=== PATIENT | male | born 1955 | race Caucasian/White ===

== ENCOUNTER 2016-08-23 21:24 | Inpatient (IN) | payer OTHER ==
[~2016-08-23] VITALS: Ht 172.7 cm; Wt 80.4 kg
[~2016-08-23 21:24] MED LIST: ATEN-175 PO; CHOL20009 PO; COEN100C7 PO; EPP3/2 INJ; FLUT0.15 NAE; HYDR25TA4 PO; LISI20TA3 PO; OMEG10007 PO; POMEGRANATE PO; SIMV80TA2 PO; TURMERIC PO
[2016-08-23] MEDS ORDERED: ASPIRIN 324 MG CHEW PO STA (22:01)
[2016-08-23 22:07] LABS: BASO % 0.3 %; BASO ABS # 0.03 K/uL (0-0.2); COMPLETE YES; HEMATOCRIT 40.1 % (42-52); IG% 0.2 %; MEAN CELL VOLUME 94.1 fL (80-100); MEAN CORPUSCULAR HEMOGLOBIN 33.1 pg (25-34); MEAN CORPUSCULAR HGB CONC 35.2 g/dl (32-36); MONO % 6.9 %; NEUT % 63.6 %; PLATELET COUNT 238 K/uL (130-400); RED BLOOD COUNT 4.26 M/uL (4.7-6.1); WHITE BLOOD COUNT 9.22 K/uL (4.8-10.8)
[2016-08-23] MEDS ORDERED: SODIUM CHLORIDE 0.9% 500ML 500 ML IV STA (22:09)
--- NOTE | 2016-08-23 22:15 | DIAGNOSTIC IMAGING REPORT ---
CHEST ONE VIEW PORTABLE CLINICAL HISTORY: Atypical chest pain COMPARISON STUDY: 07/30/2013 FINDINGS: The heart is at the upper limits of normal in size. There is no failure. There is no focal pulmonary consolidation. There are no pleural effusions. There is minimal left basilar atelectasis/scarring.[ IMPRESSION: No active disease in the chest. Electronically signed by: Gino Aguirre M.D. 08/23/2016 10:13 PM Dictated Date/Time: 08/23/2016 10:13 PM
[2016-08-23 22:23] LABS: BUN/CREATININE RATIO 16.3 (10-20); CREATININE 0.84 mg/dl (0.60-1.40)
[2016-08-23 22:30] LABS: CKMB/CK RATIO 3.2 (0-3.0)
[2016-08-23] MEDS ORDERED: MULT-506 PO (22:40)
[2016-08-23] MEDS ORDERED: BILB1CAP PO (22:41)
[2016-08-23] MEDS ORDERED: FEXO1TAB49 PO (22:42)
[2016-08-23] MEDS ORDERED: FOLI800T PO (22:43)
[2016-08-23] MEDS ORDERED: ASCO100061 PO (22:45)
[2016-08-23] MEDS ORDERED: METOPROLOL TARTRATE 50 MG TAB PO STA ×2 (22:49→23:07)
[2016-08-23] MEDS ORDERED: TURM500T PO (22:50)
[2016-08-23] MEDS ORDERED: POME250C2 PO (22:52)
[2016-08-23] MEDS ORDERED: NITROGLYCERIN OINT 2% 1GM PACKET ONE (23:07)
[2016-08-23] MEDS ORDERED: ACETAMINOPHEN 325 MG TAB PO PRN (23:15)
[2016-08-23] MEDS ORDERED: NITROGLYCERIN OINT 2% 1GM PACKET EXT SCH (23:15)
[2016-08-23] MEDS ORDERED: NITROGLYCERIN 0.4 MG SL PER TAB CHARGE SL PRN (23:15)
[2016-08-23] MEDS ORDERED: ZOLPIDEM TARTRATE 5 MG TAB PO PRN (23:15)
[2016-08-23 23:35] VITALS: BP 169/87; PULSE 61; TEMP 36.7; O2SAT 93; Ht 172.7 cm; Wt 80.4 kg
[2016-08-24] VITALS (12 sets, daily range): BP systolic 108–128; BP diastolic 64–78; PULSE 62–90; TEMP 36.3–36.9; O2SAT 95–99
[2016-08-24] MEDS ORDERED: ONDANSETRON INJ 2 MG/ML 2 ML VIAL IV PRN ×2 (01:30→12:45)
--- NOTE | 2016-08-24 01:43 | EMERGENCY ROOM VISIT NOTE ---
History Report prepared by Jose: Leanne Cedeño Under the Supervision of: Nikki PantojaO. First contact with patient: 21:48 Chief Complaint: CHEST PAIN Stated Complaint: CHEST PAIN Nursing Triage Summary: patient with chest pain earlier this evening. states it did not last long. took some antacids and it eventually resolved. no diaphoresis, nausea or radiation of the pain. states it happened before once but it also resolved on it's own. no pain at this time History of Present Illness The patient is a 61 year old male who presents to the Emergency Room with complaints of an episode of chest pain occurring 3 hours [employer]. The patient had an episode of chest pain this evening that lasted between 15-30 minutes. It started after he walked upstairs to go to the bathroom and have a bowel movement. He states that his pain went away after he relaxed. His pain was located in the center of his chest. The patient did not take any medication for his pain. He denies his pain radiating into his jaw or his back. He denies any current chest pain or shortness of breath. He does not have any history of a previous HI. He does not take aspirin. Source of History: patient, family (daughter) Onset: 3 hours [employer] Position: chest Symptom Intensity: moderate Timing: other (episode) Modifying Factors (Worsening): exertion (walking upstairs), defecation Associated Symptoms: No SOB, No back pain Review of Systems See HPI for pertinent positives & negatives. A total of 10 systems reviewed and were otherwise negative. Past Medical & Surgical Medical Problems: (1) Acute coronary syndrome (2) Cervicalgia (3) Hyperlipidemia (4) Hypertension (5) Subarachnoid hemorrhage Family History FH: heart disease Social History Smoking Status: Current Every Day Smoker Housing Status: lives with family Occupation Status: employed Current/Historical Medications Scheduled Ascorbic Acid (Ascorbic Acid), 1,000 MG PO DAILY Atenolol (Tenormin), 100 MG PO QPM Bilberry (Vaccinium Myrtillus) (Bilberry), Unknown Dose PO DAILY Cholecalciferol (Vitamin D), 2,000 UNITS PO QAM Coenzyme Q10 (Ubidecarenone) (Coq10), 100 MG PO QAM Fish Oil ([place]-3), 1,200 MG PO QAM Folic Acid (Folic Acid), 800 MCG PO DAILY Hydrochlorothiazide (Hctz), 25 MG PO QAM Lisinopril (Prinivil), 20 MG PO BID Multivitamin (Multivitamin), 1 TAB PO DAILY Pomegranate (Punica Granatum) (Pomegranate), 250 MG PO DAILY Simvastatin (Zocor), 80 MG PO QPM Turmeric (Curcuma Longa) (Turmeric), 500 MG PO DAILY Scheduled PRN Epinephrine (Epipen 2-Armin), 1 DOSE INJ DIRECTED PRN for ALLERGIC REACTION Fexofenadine Hcl (Hellen Allergy), 180 MG PO DAILY PRN for ALLERGIC REACTION Allergies Coded Allergies: No Known Allergies (Verified , 12/29/15) Physical Exam Vital Signs Date Time Temp Pulse Resp B/P Pulse Ox O2 Delivery O2 Flow Rate FiO2 08/23/16 23:00 95 20 154/92 99 Room Air 08/23/16 21:55 96 08/23/16 21:36 37.1 81 20 135/84 97 Room Air Physical Exam GENERAL: alert, sitting up in bed, ill appearing, disheveled, well nourished, no distress, non-toxic EYE EXAM: normal conjunctiva OROPHARYNX: no exudate, no erythema, lips, buccal mucosa, and tongue normal and mucous membranes are moist NECK: supple, no nuchal rigidity, no adenopathy, non-tender LUNGS: Clear to auscultation. Normal chest wall mechanics HEART: no murmurs, S1 normal and S2 normal ABDOMEN: abdomen soft, non-tender, normo-active bowel sounds, no masses, no rebound or guarding. BACK: Back is symmetrical on inspection and there is no deformity, no midline tenderness, no CVA tenderness. SKIN: no rashes and no bruising UPPER EXTREMITIES: upper extremities are grossly normal. Radial pulses equal bilaterally. LOWER EXTREMITIES: No pitting edema. Calves equal bilaterally. NEURO EXAM: Normal sensorium, cranial nerves II-XII grossly intact, normal speech, no gross weakness of arms, no gross weakness of legs. Medical Decision & Procedures ER Provider Diagnostic Interpretation: A repeat ECG reveals a sinus rhythm at 84 normal axis, ST depressions have improved. Radiology results as stated below per my review and radiologist interpretation: CHEST ONE VIEW PORTABLE CLINICAL HISTORY: Atypical chest pain COMPARISON STUDY: 07/30/2013 FINDINGS: The heart is at the upper limits of normal in size. There is no failure. There is no focal pulmonary consolidation. There are no pleural effusions. There is minimal left basilar atelectasis/scarring.[ IMPRESSION: No active disease in the chest. Electronically signed by: Gino Aguirre M.D. 08/23/2016 10:13 PM Dictated Date/Time: 08/23/2016 10:13 PM Laboratory Results 08/23/16 21:50 Red Blood Count 4.26, Mean Corpuscular Volume 94.1, Mean Corpuscular Hemoglobin 33.1, Mean Corpuscular Hemoglobin Concent 35.2, Mean Platelet Volume 9.0, Neutrophils (%) (Auto) 63.6, Lymphocytes (%) (Auto) 26.0, Monocytes (%) (Auto) 6.9, Eosinophils (%) (Auto) 3.0, Basophils (%) (Auto) 0.3, Neutrophils # (Auto) 5.85, Lymphocytes # (Auto) 2.40, Monocytes # (Auto) 0.64, Eosinophils # (Auto) 0.28, Basophils # (Auto) 0.03 08/23/16 21:50 Test 08/23/16 21:50 08/23/16 22:01 White Blood Count 9.22 K/uL (4.8-10.8) Red Blood Count 4.26 M/uL (4.7-6.1) Hemoglobin 14.1 g/dL (14.0-18.0) Hematocrit 40.1 % (42-52) Mean Corpuscular Volume 94.1 fL (80-100) Mean Corpuscular Hemoglobin 33.1 pg (25-34) Mean Corpuscular Hemoglobin Concent 35.2 g/dl (32-36) Platelet Count 238 K/uL (130-400) Mean Platelet Volume 9.0 fL (7.4-10.4) Neutrophils (%) (Auto) 63.6 % Lymphocytes (%) (Auto) 26.0 % Monocytes (%) (Auto) 6.9 % Eosinophils (%) (Auto) 3.0 % Basophils (%) (Auto) 0.3 % Neutrophils # (Auto) 5.85 K/uL (1.4-6.5) Lymphocytes # (Auto) 2.40 K/uL (1.2-3.4) Monocytes # (Auto) 0.64 K/uL (0.11-0.59) Eosinophils # (Auto) 0.28 K/uL (0-0.5) Basophils # (Auto) 0.03 K/uL (0-0.2) RDW Standard Deviation 43.4 fL (36.4-46.3) RDW Coefficient of Variation 12.6 % (11.5-14.5) Immature Granulocyte % (Auto) 0.2 % Immature Granulocyte # (Auto) 0.02 K/uL (0.00-0.02) Anion Gap 10.0 mmol/L (3-11) Est Creatinine Clear Calc Drug Dose 95.0 ml/min Estimated GFR () 108.0 Estimated GFR (Non- 93.2 BUN/Creatinine Ratio 16.3 (10-20) Calcium Level 9.0 mg/dl (8.5-10.1) Bedside Troponin I 0.340 ng/ml (0-0.045) Laboratory results per my review. Medications Administered Medications (Trade) Dose Ordered Sig/Shanae Route Start Time Stop Time Status Last Admin Dose Admin Aspirin 324 mg 324 mg NOW STAT PO 08/23/16 22:01 08/23/16 22:02 DC 08/23/16 22:14 324 MG Sodium Chloride (Nss 500ml) 500 ml @ 999 mls/hr Q31M STAT IV 08/23/16 22:09 08/23/16 22:39 DC 08/23/16 22:15 999 MLS/HR Nitroglycerin (Nitroglycerin 2% Oint) 1 inch STK-MED ONCE .ROUTE 08/23/16 23:07 08/23/16 23:08 DC 08/23/16 23:15 1 INCH Metoprolol Tartrate (Lopressor Tab) 50 mg NOW STAT PO 08/23/16 23:07 08/23/16 23:18 DC 08/23/16 23:18 50 MG ECG Indication: chest pain Rate (beats per minute): 96 Rhythm: sinus rhythm Findings: PVC, ST depression (Anterolateral) Comparison ECG Date: 09/10/08 Change: All findings are new when compared to previous. ED Course ED COURSE: Vital signs were reviewed and showed tachycardic. The patients medical record was reviewed The above diagnostic studies were performed and reviewed. ED treatments and interventions as stated above. 2147: The patient was evaluated in room A3. A complete history and physical examination was performed. 2200: Aspirin 324 mg PO 2208: NSS 500 ml @ 999 mls/hr IV 2216: I reassessed the patient at this time. A repeat ECG was performed. He is still denying any pain or shortness of breath. 2220: I spoke with Dr. Kramer. We discussed the patient's results and treatment plan. The patient will be evaluated by the [facility] for further management. 2235: Upon reevaluation, the patient is doing well. I discussed my findings with the patient and he understands and agrees with the treatment plan. Based on the patients age, coexisting illnesses, exam and lab findings the decision to treat as an inpatient was made. The patient remained stable while under my care. The patient will be evaluated for further management. Medical Decision Differential diagnoses includes but is not limited to acute coronary syndrome, myocardial infarction, pericarditis, pulmonary embolus, aortic dissection, pneumonia, pneumothorax, musculoskeletal, shingles, esophageal. Patient is a 61-year-old male who presents the ER for chest pain which started around 6 PM and lasted for about half hour. It is in the middle of his chest without radiation. He notes it has completely resolved around 6:30 PM. He does have a history of a subarachnoid hemorrhage. On exam he currently has no complaints. His initial EKG shows slight ST depressions in the anterior and lateral leads along with PVCs. This was new in comparison to his previous/old EKG. Patient was given aspirin. He is also given a bolus normal saline. Heart rate trended down to 80s. Again he had no pain at this time. Repeat EKG certain improvement in his ST wave changes which resolved. His troponin was positive. I did not place him on heparin as he was completed chest pain-free and had a previous subarachnoid hemorrhage along with his EKG which has normalized. Patient and daughter were updated at bedside. He is admitted to internal medicine for an NSTEMI. Consults Time Called: 2220 Consulting Physician: Dr. Kramer Returned Call: [address] Kramer. We discussed the patient's results and treatment plan. The patient will be evaluated by the [facility] for further management. Impression Primary Impression: NSTEMI (non-ST elevated myocardial infarction) Scribe Attestation The scribe's documentation has been prepared under my direction and personally reviewed by me in its entirety. I confirm that the note above accurately reflects all work, treatment, procedures, and medical decision making performed by me. Departure Information Dispostion Being Evaluated By Hospitalist Referrals Valentino Montoya D.O.Int.Med. (PCP) Patient Instructions My [facility]
[2016-08-24 02:13] LABS: PARTIAL THROMBOPLASTIN RATIO 1.3; PROTHROMBIN TIME (PATIENT) 10.8 SECONDS (9.0-12.0)
[2016-08-24 02:28] LABS: CKMB/CK RATIO 3.7 (0-3.0)
--- NOTE | 2016-08-24 05:45 | History and Physical ---
History & Physical Date & Time of Service: Aug 24, 2016 at 05:35 Chief Complaint: Acute Coronary Syndrome Primary Care Physician: Valentino Montoya D.O.Int.Med. History of Present Illness Source: patient The patient is a 61-year-old male who presents to the emergency room, at the urging of his 18-year-old daughter who is with him, due to an episode of precordial chest pain that began about 3 hours prior to arrival. The pain began after he started walking up stairs to go to the bathroom to have a bowel movement, with duration of 15-30 minutes. The pain resolved on its own, and did not radiate into his jaw or his back or his arm. He reports having had a similar episode of discomfort 3 months ago, with the main difference today being his daughter urged him to come to emergency department for assessment. He has a brother who of a heart attack, and his mother is alive at age 94 and is status post CABG. He himself was never had an MA, and is not on aspirin Past Medical/Surgical History Medical Problems: (1) Cervicalgia Status: Chronic (2) Hyperlipidemia Status: Chronic (3) Hypertension Status: Chronic (4) Subarachnoid hemorrhage Status: Resolved Family History FH: heart disease Social History Smoking Status: Current Every Day Smoker Smokeless Tobacco Use: No Alcohol Use: none Drug Use: none Housing status: lives with family Occupational Status: employed Immunizations History of Influenza Vaccine: Yes History of Tetanus Vaccine?: Unknown History of Pneumococcal: No History of Hepatitis B Vaccine: No Multi-Drug Resistant Organisms History of MDRO: No Allergies Coded Allergies: No Known Allergies (Verified , 12/29/15) Home Medications Scheduled Ascorbic Acid (Ascorbic Acid), 1,000 MG PO DAILY Atenolol (Tenormin), 100 MG PO QPM Bilberry (Vaccinium Myrtillus) (Bilberry), Unknown Dose PO DAILY Cholecalciferol (Vitamin D), 2,000 UNITS PO QAM Coenzyme Q10 (Ubidecarenone) (Coq10), 100 MG PO QAM Fish Oil ([place]-3), 1,200 MG PO QAM Folic Acid (Folic Acid), 800 MCG PO DAILY Hydrochlorothiazide (Hctz), 25 MG PO QAM Lisinopril (Prinivil), 20 MG PO BID Multivitamin (Multivitamin), 1 TAB PO DAILY Pomegranate (Punica Granatum) (Pomegranate), 250 MG PO DAILY Simvastatin (Zocor), 80 MG PO QPM Turmeric (Curcuma Longa) (Turmeric), 500 MG PO DAILY Scheduled PRN Epinephrine (Epipen 2-Armin), 1 DOSE INJ DIRECTED PRN for ALLERGIC REACTION Fexofenadine Hcl (Hellen Allergy), 180 MG PO DAILY PRN for ALLERGIC REACTION Review of Systems The patient denies cough, lower extremity swelling, vision change, hearing change, sore throat, fevers, chills, sweats, weight change, fatigue, nausea, vomiting, abdominal pain, pelvic pain, blood in urine or stool, dysuria, urinary frequency or urgency, lightheadedness, dizziness, headache, memory loss , rash, abnormal bruising or bleeding, imbalance, focal or generalized weakness , numbness or tingling in arms or legs, arthralgias or myalgias, back or neck pain, night sweats, or allergy symptoms. The review of systems is otherwise negative other than for that already noted above, and at least 10 systems have been reviewed. Physical Exam Vital Signs Date Time Temp Pulse Resp B/P Pulse Ox O2 Delivery O2 Flow Rate FiO2 08/24/16 04:02 36.9 74 18 109/68 97 Room Air 08/24/16 04:00 Room Air 08/23/16 23:35 36.7 61 16 169/87 93 Room Air 08/23/16 23:00 95 20 154/92 99 Room Air 08/23/16 21:55 96 08/23/16 21:36 37.1 81 20 135/84 97 Room Air The patient is awake, well-developed and adequately nourished, alert and oriented 3, normocephalic and atraumatic, lying in bed and in no acute distress. HEENT--PERRL, EOMI, mucous membranes moist, and oropharynx normal. Neck--supple, no JVD or bruits, thyroid normal, trachea midline, no adenopathy. Heart--normal S1 and S2, no extra beats, no murmurs, rubs or gallops. Lungs--clear bilaterally with good air movement, no respiratory distress, no accessory muscle use. Abdomen--normal bowel sounds and soft, nontender and nondistended, no hernias or masses, no organomegaly. Extremities--no cyanosis, clubbing or edema. There are good distal pulses b/l. Dermatologic--normal skin turgor, normal color, warm and dry, no abnormal lymph nodes, no rash. Neurologic--cranial nerves II through XII grossly intact, motor and sensory examination normal. Rheumatologic--normal range of motion, nontender, muscles and joints. Psychiatric--normal affect. Diagnostics Laboratory Results Results Past 24 Hours Test 08/23/16 21:50 08/23/16 22:01 08/24/16 01:50 Range/Units White Blood Count 9.22 4.8-10.8 K/uL Red Blood Count 4.26 4.7-6.1 M/uL Hemoglobin 14.1 14.0-18.0 g/dL Hematocrit 40.1 42-52 % Mean Corpuscular Volume 94.1 80-100 fL Mean Corpuscular Hemoglobin 33.1 25-34 pg Mean Corpuscular Hemoglobin Concent 35.2 32-36 g/dl Platelet Count 238 130-400 K/uL Mean Platelet Volume 9.0 7.4-10.4 fL Neutrophils (%) (Auto) 63.6 % Lymphocytes (%) (Auto) 26.0 % Monocytes (%) (Auto) 6.9 % Eosinophils (%) (Auto) 3.0 % Basophils (%) (Auto) 0.3 % Neutrophils # (Auto) 5.85 1.4-6.5 K/uL Lymphocytes # (Auto) 2.40 1.2-3.4 K/uL Monocytes # (Auto) 0.64 0.11-0.59 K/uL Eosinophils # (Auto) 0.28 0-0.5 K/uL Basophils # (Auto) 0.03 0-0.2 K/uL RDW Standard Deviation 43.4 36.4-46.3 fL RDW Coefficient of Variation 12.6 11.5-14.5 % Immature Granulocyte % (Auto) 0.2 % Immature Granulocyte # (Auto) 0.02 0.00-0.02 K/uL Sodium Level 138 136-145 mmol/L Potassium Level 4.0 3.5-5.1 mmol/L Chloride Level 101 98-107 mmol/L Carbon Dioxide Level 27 21-32 mmol/L Anion Gap 10.0 3-11 mmol/L Blood Urea Nitrogen 14 7-18 mg/dl Creatinine 0.84 0.60-1.40 mg/dl Est Creatinine Clear Calc Drug Dose 95.0 ml/min Estimated GFR () 108.0 Estimated GFR (Non- 93.2 BUN/Creatinine Ratio 16.3 10-20 Random Glucose 91 70-99 mg/dl Calcium Level 9.0 8.5-10.1 mg/dl Total Creatine Kinase 130 115 39-308 U/L Creatine Kinase MB 4.1 4.3 0.5-3.6 ng/ml Creatine Kinase MB Ratio 3.2 3.7 0-3.0 Troponin I 0.513 0.835 0-0.045 ng/ml Bedside Troponin I 0.340 0-0.045 ng/ml Prothrombin Time 10.8 9.0-12.0 SECONDS Prothromb Time International Ratio 1.0 0.9-1.1 Activated Partial Thromboplast Time 33.2 21.0-31.0 SECONDS Partial Thromboplastin Ratio 1.3 Diagnostic Radiology Patient Name: ANNA BEY Unit Number: [id number] Dictated: 08/23/162212 Transcribed: 08/23/162212 ARG Printed Date/Time: [~ rep prt dt]/[~ rep prt tm] [~ rep ct labl] - [~ rep ct ivnm] [facility] [place] [address] Dictated: 08/23/162212 Transcribed: 08/23/162212 ARG Printed Date/Time: [~ rep prt dt]/[~ rep prt tm] [~ rep ct labl] - [~ rep ct ivnm] CLINICAL HISTORY: Atypical chest pain COMPARISON STUDY: 07/30/2013 FINDINGS: The heart is at the upper limits of normal in size. There is no failure. There is no focal pulmonary consolidation. There are no pleural effusions. There is minimal left basilar atelectasis/scarring.[ IMPRESSION: No active disease in the chest. Electronically signed by: Gino Aguirre M.D. 08/23/2016 10:13 PM Dictated Date/Time: 08/23/2016 10:13 PM The status of this report is Signed. Draft = Not yet reviewed or approved by Radiologist. Signed = Reviewed and approved by Radiologist. <AttendingPhy></AttendingPhy> <FamilyPhy>Valentino Montoya D.O.Int.Med.</ FamilyPhy> <PrimaryPhy>Valentino Montoya D.O.Int.Med.</PrimaryPhy> <UnitNumber> [id number]</UnitNumber> <VisitNumber>[id number]</VisitNumber> <PatientName> ANNA BEY</PatientName> <DateOfBirth>1955</DateOfBirth> <Location>[facility]< /Location> <ServiceDate>08/23/16</ServiceDate> <MNE>ESINDI</MNE> <OrderingPhy> Oli Palacio DO</OrderingPhy> <OrderingPhyMNE>f rep ord dr thayer</OrderingPhyMNE > <DictatingPhyMNE>f rep dict dr thayer</DictatingPhyMNE> <CCListMNE>f rep ct mne</ CCListMNE> <AdmittingPhyMNE>f pt admit dr thayer</AdmittingPhyMNE> <AttendingPhyMNE >f pt attend dr thayer</AttendingPhyMNE> <ConsultingPhyMNE>f pt consult dr thayer</ConsultingPhyMNE> <FamilyPhyMNE>f pt fam dr thayer</FamilyPhyMNE> <OtherPhyMNE>f pt other dr thayer</OtherPhyMNE> < PrimaryPhyMNE>f pt prim care dr thayer</PrimaryPhyMNE> <ReferringPhyMNE>f pt referring dr thayer</ReferringPhyMNE> EKG First EKG shows normal sinus rhythm at 84, with ST depressions most pronounced in V4, but also noted in V3, V5, II, III, aVF with accompanying PVCs. Second EKG shows normal sinus rhythm, with resolution of above changes, and no acute ST-T changes Impression Assessment and Plan Acute coronary syndrome, with initial troponin elevated at 0.513, with reversible inferior lateral ischemic changes on EKG, with history of subarachnoid hemorrhage--he will be admitted to the telemetry unit, for serial cardiac enzymes, cardiac rhythm monitoring, and a 2-D echocardiogram with Dopplers. He has received aspirin 325 mg by mouth in the ED, and I've added nitroglycerin paste 1 inch to the anterior chest wall every 6 hours, and change his beta ольга from atenolol 100 mg by mouth every afternoon to metoprolol tartrate 50 mg by mouth first dose now and then 50 mg by mouth every 8 hours. We'll continue lisinopril 20 mg by mouth twice a day, and hold HCTZ 25 mg by mouth every morning. Hypercholesterolemia--continue simvastatin 80 mg by mouth every afternoon. Tobacco use disorder--patient will require counseling and discussed with him the importance of tobacco cessation. Level of Care Telemetry Advanced Directives Existing Advance Directive: No Existing Living Will: No Existing Power of Rn Dialysis: No Resuscitation Status FULL RESUSCITATION VTE Prophylaxis VTE Risk Assessment Done? Y/N: Yes Risk Level: Moderate Given or contraindicated: SCD's Social Service Consult None Apply
[2016-08-24] MEDS: NITROGLYCERIN OINT 2% 1GM PACKET EXT SCH ×3 (05:58→17:01)
[2016-08-24] MEDS: LISINOPRIL 20 MG TAB PO SCH ×2 (08:10→20:26)
[2016-08-24] MEDS: METOPROLOL TARTRATE 25 MG TAB PO SCH ×2 (08:11→17:00)
[2016-08-24] MEDS ORDERED: FoLIC ACID TAB 400 MCG TAB PO SCH (09:00)
[2016-08-24] MEDS ORDERED: CHOLECALCIFEROL 1000 INTER.UNIT TAB PO SCH (09:00)
[2016-08-24] MEDS ORDERED: OPTIRAY 320 IV PRN (09:00)
[2016-08-24] MEDS ORDERED: METOPROLOL TARTRATE 25 MG TAB PO SCH (09:00)
[2016-08-24] MEDS ORDERED: ASPIRIN 81 MG ECTAB PO SCH (09:00)
[2016-08-24] MEDS ORDERED: MULTIVITAMIN TAB PO SCH (09:00)
[2016-08-24] MEDS ORDERED: SODIUM CHLORIDE 0.9% 1000ML 1,000 ML IV SCH ×2 (09:30→12:45)
--- NOTE | 2016-08-24 10:39 | DIAGNOSTIC IMAGING REPORT ---
CT ANGIOGRAPHY HEAD COMBO CT DOSE: 814.11 mGy.cm CLINICAL HISTORY: History of subarachnoid hemorrhage. Headache. Evaluate for aneurysm TECHNIQUE: Unenhanced images were obtained the brain. CT angiography was then performed following the administration 94 cc of Optiray 320. MIP imaging was performed COMPARISON STUDY: Noncontrast head CT dated FINDINGS: On the noncontrast study, no intra or extra-axial mass lesions are visualized. There is no CT evidence of acute cortical infarction. There is no midline shift. There is no acute hemorrhage. There is polypoid mucosal thickening within both exercises. Multiple ethmoid air cells are opacified. There is minimal mucosal disease within the frontal sinus. Postcontrast images reveal atheromatous calcifications within the distal left vertebral artery. There are atheromatous calcifications present within the cavernous carotids. There are no major intracranial branch occlusions. There are no lesion suspicious for aneurysm. There are no pathologically enhancing intracranial masses. There are no findings to indicate dural venous sinus thrombosis. IMPRESSION: 1. No acute intracranial findings 2. No evidence of aneurysm. No evidence of intracranial branch occlusion, or significant intracranial stenosis.. Electronically signed by: Gino Aguirre M.D. 08/24/2016 10:37 AM Dictated Date/Time: 08/24/2016 10:33 AM
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
--- NOTE | 2016-08-24 11:07 | ECHOCARDIOGRAM REPORT ---
*NOTICE TO RECEIVING LIBERTARIAN AGENCY This information is strictly Confidential and protected under [place] law. [place] law prohibits you from making any further disclosure of this information unless further disclosure is expressly permitted by the written consent of the person to whom it pertains or is authorized by law. A general authorization for the release of medical or other information is not sufficient for this purpose. Hospital accepts no responsibility if the information is made available to any other person, INCLUDING THE PATIENT. Interpretation Summary * Name: ANNA BEY Study Date: 08/24/2016 09:19 AM BP: 109/68 mmHg * Patient Location: [facility] HR: 74 * : 1955 (M/d/yyyy) Gender: Male * Age: 61 yrs Ethnicity: [place] * Ordering Physician: Kevon Kramer * Performed By: Irish Arroyo * * Reason For Study: ACS * Normal overall left ventricular systolic function. * Mild anteroseptal and apical hypokinesis. * Normal chamber dimensions. * Mild left ventricular hypertrophy. * Left ventricular diastolic dysfunction. * Trace mitral ,aortic,and pulmonic regurgitation. * Mild tricuspid regurgitation. * Mild aortic stenosis. * -- Conclusions -- * Aortic valve sclerosis mild, without significant aortic valvular stenosis. Procedure Details * A complete two-dimensional transthoracic echocardiogram was performed (2D, M-mode, Doppler and color flow Doppler). Left Ventricle * The left ventricle is normal in size. * Mild concentric left ventricular hypertrophy except for for more prominent focal basal thickening. * Ejection Fraction = 65-70%. * Left ventricular systolic function is normal. * A full diastolic examination was done with clinical findings of Class I diastolic dysfunction. * Mild distal septal and apical hypokinesis. Right Ventricle * The right ventricle is normal in size and function. Atria * The left atrial size is normal. * Right atrial size is normal. * No ASD detected; PFO is not assessed. Mitral Valve * There is mild mitral annular calcification. * There is trace mitral regurgitation. Tricuspid Valve * The tricuspid valve is normal. * There is mild tricuspid regurgitation. * Right ventricular systolic pressure is normal. Aortic Valve * The aortic valve is trileaflet. * The aortic valve opens well. * Aortic valve sclerosis mild, without significant aortic valvular stenosis. * Mild valvular aortic stenosis. * Aortic valve area was calculated at 1.7 cm\S\2 using the continuity equation. * Trace aortic regurgitation. Pulmonic Valve * The pulmonic valve is not well visualized. * Trace pulmonic valvular regurgitation. Great Vessels * The aortic root is normal size. Pericardium/Pleural * There is no pericardial effusion. Great Vessels * Normal inferior vena cava diameter and respiratory variation suggests normal central venous pressure. MMode 2D Measurements and Calculations IVSd 1.3 cm IVSs 2.0 cm LVIDd 3.9 cm LVIDs 2.2 cm LVPWd 1.2 cm LVPWs 1.4 cm IVS/LVPW 1.1 FS 42.3 % EDV(Teich) 64.5 ml ESV(Teich) 16.8 ml EF(Teich) 74.0 % EDV(cubed) 57.8 ml ESV(cubed) 11.1 ml EF(cubed) 80.8 % % IVS thick 51.4 % % LVPW thick 17.0 % LV mass(C)d 167.0 grams LV mass(C)s 138.2 grams SV(Teich) 47.8 ml SV(cubed) 46.7 ml Ao root diam 3.5 cm Ao root area 9.6 cm\S\2 ACS 1.2 cm LA dimension 3.7 cm asc Aorta Diam 3.1 cm LA/Ao 1.1 LVOT diam 1.7 cm LVOT area 2.2 cm\S\2 LVAd ap4 32.9 cm\S\2 LVLd ap4 8.8 cm EDV(MOD-sp4) 96.2 ml EDV(sp4-el) 104.4 ml LVAs ap4 17.4 cm\S\2 LVLs ap4 7.6 cm ESV(MOD-sp4) 32.5 ml ESV(sp4-el) 33.8 ml EF(MOD-sp4) 66.2 % EF(sp4-el) 67.7 % LVAd ap2 37.1 cm\S\2 LVLd ap2 9.1 cm EDV(MOD-sp2) 119.5 ml EDV(sp2-el) 128.8 ml LVAs ap2 18.0 cm\S\2 LVLs ap2 7.1 cm ESV(MOD-sp2) 36.8 ml ESV(sp2-el) 38.5 ml EF(MOD-sp2) 69.2 % EF(sp2-el) 70.1 % LVLd %diff 2.9 % EDV(MOD-bp) 108.8 ml LVLs %diff -6.96 % ESV(MOD-bp) 33.7 ml EF(MOD-bp) 69.0 % SV(MOD-sp4) 63.7 ml SV(MOD-sp2) 82.7 ml SV(MOD-bp) 75.1 ml SV(sp4-el) 70.6 ml SV(sp2-el) 90.3 ml Doppler Measurements and Calculations MV E max duncan 88.4 cm/sec MV A max duncan 97.6 cm/sec MV E/A 0.91 MV dec time 0.22 sec Ao V2 max 167.1 cm/sec Ao max PG 11.2 mmHg Ao max PG (full) 4.1 mmHg ELLIOTT(V,A) 1.7 cm\S\2 ELLIOTT(V,D) 1.7 cm\S\2 LV V1 max PG 7.1 mmHg LV V1 mean PG 2.3 mmHg LV V1 max 133.4 cm/sec LV V1 mean 63.1 cm/sec LV V1 VTI 31.6 cm MR max duncan 442.0 cm/sec MR max PG 78.2 mmHg SV(LVOT) 69.0 ml PA V2 max 93.3 cm/sec PA max PG 3.5 mmHg PI end-d duncan 106.1 cm/sec TR max duncan 234.3 cm/sec
[2016-08-24] MEDS ORDERED: NiCARDipine HCL INJ 2.5 MG/ML 10 ML AMP ONE (11:26)
[2016-08-24] MEDS ORDERED: HEPARIN SOD (PORCINE) 1000 UNIT/ML 10 ML VIAL ONE (11:26)
[2016-08-24] MEDS ORDERED: NITROGLYCERIN/D5W 100MCG/ML 20ML SYR ONE (11:27)
[2016-08-24] MEDS ORDERED: MIDAZOLAM HCL 1 MG/ML 2ML VIAL ONE ×2 (11:27→11:57)
[2016-08-24] MEDS ORDERED: FENTANYL CITRATE INJ 50 MCG/1 ML 2 ML VIAL ONE ×2 (11:28→11:57)
--- NOTE | 2016-08-24 11:29 | Neurology Consultation ---
Neurology Consultation Date of Consultation: Aug 24, 2016. Attending Physician: Keren Cruz M.D. Primary Care Physician: Valentino Montoya D.O.Int.Med. Reason for Consultation: Consultation for history of subarachnoid bleed and clearance for Cath Procedure History of Present Illness Source: patient, hospital records This is a 61-year-old male who presents for chest pain and cardiac workup. Neurology, was consult did as the patient had a history of subarachnoid hemorrhage in 2004. Cardiology would like to take the patient to the [facility], which would involve anticoagulation as part of the procedure with antiplatelets after any stenting. Patient reports that his subarachnoid bleed happened in 2004. He is never had any additional episodes before after. He reports that at that time he had a sudden severe headache. He felt like he was shot in the head. When he was evaluated and was found to have a subarachnoid bleed. He was transferred to [facility]. He reports they did several angiograms and did not find anything abnormal. He reports that he was also later evaluated by Dr. Willis neurosurgery without any cause for subarachnoid found. He reports that since then he has had no additional bleeding. No issues with bleeding anywhere else in his body. Denies any additional headaches since that time. He did have a follow-up CT scan in 2006 with no blood seen. He denies any symptoms of stroke in the past. Denies any symptoms of seizures in the past. He is independent in his activities of daily living. He is active and is employed. He currently drives. No concerns about his memory or thinking. No trouble eating or swallowing. No numbness or weakness anywhere. Patient reports that he was on aspirin for many years but stopped as it was thought maybe did not be needed. He denies any trauma in association with a subarachnoid hemorrhage. Past Medical/Surgical History Medical Problems: (1) NSTEMI (non-ST elevated myocardial infarction) Status: Acute Dyslipidemia, hypertension, history of a single subarachnoid hemorrhage of unknown etiology Family History Significant for CAD Social History Patient is employed. Independent in his activities of daily living. Positive tobacco use. Smokeless Tobacco Use: No Alcohol Use: none Drug Use: none Housing Status: lives with family Occupation Status: employed Allergies Coded Allergies: No Known Allergies (Verified , 12/29/15) Current Inpatient Medications Current Inpatient Medications Medications (Trade) Dose Ordered Sig/Shanae Route Start Time Stop Time Status Last Admin Dose Admin Nitroglycerin (Nitroglycerin 2% Oint) 1 inch Q6H EXT 08/24/16 06:00 09/23/16 05:59 08/24/16 05:58 1 INCH Metoprolol Tartrate (Lopressor Tab) 50 mg Q8H PO 08/24/16 09:00 09/23/16 08:59 08/24/16 08:11 50 MG Acetaminophen (Tylenol Tab) 650 mg Q4H PRN PO 08/23/16 23:15 09/22/16 23:14 Zolpidem Tartrate (Ambien Tab) 5 mg HSZ PRN PO 08/23/16 23:15 09/22/16 23:14 Nitroglycerin (Nitrostat Tab) 0.4 mg UD PRN SL 08/23/16 23:15 09/22/16 23:14 Aspirin (Ecotrin Tab) 81 mg QAM PO 08/24/16 09:00 09/23/16 08:59 08/24/16 08:11 81 MG Lisinopril (Zestril Tab) 20 mg BID PO 08/24/16 09:00 09/23/16 08:59 08/24/16 08:10 20 MG Multivitamins (Multivitamin Tab) 1 tab DAILY PO 08/24/16 09:00 09/23/16 08:59 08/24/16 08:10 1 TAB Simvastatin (Zocor Tab) 80 mg QPM PO 08/24/16 21:00 09/23/16 20:59 Cholecalciferol (Vitamin D Tab) 2,000 inter.unit QAM PO 08/24/16 09:00 09/23/16 08:59 08/24/16 08:11 2,000 INTER.UNIT Folic Acid (Folvite Tab) 800 mcg QAM PO 08/24/16 09:00 09/23/16 08:59 08/24/16 08:10 800 MCG Ondansetron HCl (Zofran Inj) 4 mg Q6H PRN IV 08/24/16 01:30 09/23/16 01:29 Ioversol 125 ml 125 ml UD PRN IV 08/24/16 09:00 08/28/16 08:59 Sodium Chloride (Nss 1000ml) 1,000 ml @ 125 mls/hr Q8H IV 08/24/16 09:30 09/23/16 09:29 08/24/16 09:58 125 MLS/HR Review of Systems Complete review of systems otherwise negative except for the above noted in history of present illness. Physical Exam Vital Signs (Past 24 Hrs): Date Time Temp Pulse Resp B/P Pulse Ox O2 Delivery O2 Flow Rate FiO2 08/24/16 08:00 Room Air 08/24/16 07:54 36.9 71 16 108/69 95 Room Air 08/24/16 04:02 36.9 74 18 109/68 97 Room Air 08/24/16 04:00 Room Air 08/23/16 23:35 36.7 61 16 169/87 93 Room Air 08/23/16 23:00 95 20 154/92 99 Room Air 08/23/16 21:55 96 08/23/16 21:36 37.1 81 20 135/84 97 Room Air Gen.: Patient is alert and oriented in no acute distress lying in bed Heart: Regular rate and rhythm Extremities: No gross deformities or rashes noted Neurological examination: Mental status: Patient is alert and oriented to person , place and time. Had good fund of knowledge. Able to give his own history. Attention concentration normal for the situation. Speech is fluent without any dysarthria or aphasia noted Cranial nerves: Funduscopic examination was difficult to visualize. Pupils equally round and reactive to light. Extraocular muscles intact without nystagmus. No facial asymmetry noted. Facial sensation intact. Tongue midline. Good palatal elevation. Good shoulder shrug bilaterally. Hearing grossly intact voice. Strength: 5/5 both proximal and distal in all extremities .Tone is normal. Sensation: Grossly intact to light touch in all extremities Deep tendon reflexes: +1 in bilateral biceps and patellar. Coordination: Patient has good finger to nose without dysmetria Station within the bed is normal. Laboratory Results Past 24 Hours: 08/23/16 21:50 Red Blood Count 4.26, Mean Corpuscular Volume 94.1, Mean Corpuscular Hemoglobin 33.1, Mean Corpuscular Hemoglobin Concent 35.2, Mean Platelet Volume 9.0, Neutrophils (%) (Auto) 63.6, Lymphocytes (%) (Auto) 26.0, Monocytes (%) (Auto) 6.9, Eosinophils (%) (Auto) 3.0, Basophils (%) (Auto) 0.3, Neutrophils # (Auto) 5.85, Lymphocytes # (Auto) 2.40, Monocytes # (Auto) 0.64, Eosinophils # (Auto) 0.28, Basophils # (Auto) 0.03 08/23/16 21:50 Test 08/23/16 21:50 08/23/16 22:01 08/24/16 01:50 08/24/16 09:29 White Blood Count 9.22 K/uL (4.8-10.8) Red Blood Count 4.26 M/uL (4.7-6.1) Hemoglobin 14.1 g/dL (14.0-18.0) Hematocrit 40.1 % (42-52) Mean Corpuscular Volume 94.1 fL (80-100) Mean Corpuscular Hemoglobin 33.1 pg (25-34) Mean Corpuscular Hemoglobin Concent 35.2 g/dl (32-36) Platelet Count 238 K/uL (130-400) Mean Platelet Volume 9.0 fL (7.4-10.4) Neutrophils (%) (Auto) 63.6 % Lymphocytes (%) (Auto) 26.0 % Monocytes (%) (Auto) 6.9 % Eosinophils (%) (Auto) 3.0 % Basophils (%) (Auto) 0.3 % Neutrophils # (Auto) 5.85 K/uL (1.4-6.5) Lymphocytes # (Auto) 2.40 K/uL (1.2-3.4) Monocytes # (Auto) 0.64 K/uL (0.11-0.59) Eosinophils # (Auto) 0.28 K/uL (0-0.5) Basophils # (Auto) 0.03 K/uL (0-0.2) RDW Standard Deviation 43.4 fL (36.4-46.3) RDW Coefficient of Variation 12.6 % (11.5-14.5) Immature Granulocyte % (Auto) 0.2 % Immature Granulocyte # (Auto) 0.02 K/uL (0.00-0.02) Anion Gap 10.0 mmol/L (3-11) Est Creatinine Clear Calc Drug Dose 95.0 ml/min Estimated GFR () 108.0 Estimated GFR (Non- 93.2 BUN/Creatinine Ratio 16.3 (10-20) Calcium Level 9.0 mg/dl (8.5-10.1) Bedside Troponin I 0.340 ng/ml (0-0.045) Prothrombin Time 10.8 SECONDS (9.0-12.0) Prothromb Time International Ratio 1.0 (0.9-1.1) Activated Partial Thromboplast Time 33.2 SECONDS (21.0-31.0) Partial Thromboplastin Ratio 1.3 Creatine Kinase MB Ratio (0-3.0) Imaging Based off of my recommendations over the phone a CT of the head and CTA of the head were obtained. Reported images were reviewed by myself. There is no signs of intracranial blood at this time. No signs of intracranial aneurysms. Impression This is a 61-year-old male who had a single episode of subarachnoid hemorrhage in 2004 with no specific etiology found. There is a small percentage of patients who do not have an identifiable etiology. With no signs of intracranial aneurysms, the risk of another subarachnoid hemorrhage is low. Plan Patient is a low risk for intracranial hemorrhage with proposed procedure and antiplatelet afterwards. No neurological contraindications to proposed treatment. Thank you for allowing me to participate in this patient's care. If there is any questions or concerns, feel free to call/page me.
--- NOTE | 2016-08-24 11:37 | Procedure Note ---
Pre-Mod Sedation Assessment General Date of Moderate Sedation: Aug 24, 2016. Vital Signs: Vital Signs Past 12 Hours Date Time Temp Pulse Resp B/P Pulse Ox O2 Delivery O2 Flow Rate FiO2 08/24/16 08:00 Room Air 08/24/16 07:54 36.9 71 16 108/69 95 Room Air 08/24/16 04:02 36.9 74 18 109/68 97 Room Air 08/24/16 04:00 Room Air 08/23/16 23:35 36.7 61 16 169/87 93 Room Air Review Cardiovascular: regular rate, rhythm, no edema, no gallop, no JVD, no murmur, normal peripheral pulses Abdomen: normal bowel sounds, non tender, soft, no organomegaly, no pulsatile mass Lungs: lungs clear, normal breath sounds Pre-Sedation Airway Assessment Oral Cavity: Dental Abnormalities Able to Visualize Vocal Cords: No Short Thick Neck: No Hx of Sleep Apnea: No Smoking Status: Current Every Day Smoker Mallampati Classification: Class III ASA Classification: Class II Procedure Planning Contraindications-for Mod Sed: None Yes Notes The planned sedation has been discussed with the patient and consent obtained. I have identified the patient, determined the appropriateness of sedation and have assessed the patient immediately prior to the procedure. All medicine(s) and interventions are by my order.
[2016-08-24] MEDS ORDERED: HEPARIN 25000 UNIT/500 ML D5W ONE (12:12)
[2016-08-24] MEDS ORDERED: EPTIFIBATIDE 2 MG/ML 10 ML VIAL IV ONE (12:13)
[2016-08-24] MEDS ORDERED: EPTIFIBATIDE 0.75 MG/ML 75MG VIAL IV ONE (12:13)
[2016-08-24] MEDS ORDERED: NURSING VERBAL MED ORDER ONE (12:15)
[2016-08-24 12:18] LABS: CKMB/CK RATIO 3.9 (0-3.0)
[2016-08-24] MEDS ORDERED: MoRPHine SULFATE 2 MG/ML CARP IV PRN (12:45)
[2016-08-24] MEDS ORDERED: ATROPINE SULFATE 0.1 MG/ML 5ML SYR IV PRN (12:45)
[2016-08-24] MEDS ORDERED: ACETAMINOPHEN 325 MG TAB PO PRN (12:45)
[2016-08-24] MEDS ORDERED: LORAZEPAM INJ 0.5 MG in SYRINGE 0.75 ML IV PRN (12:45)
[2016-08-24] MEDS ORDERED: EPTIFIBATIDE BOLUS / DRIP IV ONE (12:45)
--- NOTE | 2016-08-24 12:52 | Procedure Note ---
Post-Mod Sedation Assessment General Date of Moderate Sedation Aug 24, 2016. Vital Signs: Vital Signs Past 12 Hours Date Time Temp Pulse Resp B/P Pulse Ox O2 Delivery O2 Flow Rate FiO2 08/24/16 12:30 72 16 128/72 95 Room Air 08/24/16 12:15 72 16 109/70 95 Room Air 08/24/16 11:34 36.6 65 16 128/78 97 Room Air 08/24/16 08:00 Room Air 08/24/16 07:54 36.9 71 16 108/69 95 Room Air 08/24/16 04:02 36.9 74 18 109/68 97 Room Air 08/24/16 04:00 Room Air Review - Discharge Criteria Vital Signs Stable: Yes Alert/Oriented/Conversant: Yes Returned to Baseline Mental St: Yes Nausea Absent/Minimal: Yes Pain/Discomfort/Absent/Minimal: Yes Normal/Baseline Respirations: Yes Active Bleeding?: No Pt Received D/C Instructions: N/A Prescriptions Given: None Specific Proced. D/C Criteria Distal Pulses Present (Cardiac: Yes Groin site assessed-Card Cath: N/A Voided Prior To Discharge: N/A Discharged Patients Adult Escort/Transportation: N/A
[2016-08-24 13:22] LABS: BASO % 0.2 %; EOS % 3.6 %; HEMATOCRIT 37.6 % (42-52); IG% 0.2 %; LYMPH % 20.4 %; MEAN CELL VOLUME 94.9 fL (80-100); MEAN CORPUSCULAR HEMOGLOBIN 32.6 pg (25-34); MEAN PLATELET VOLUME 9.2 fL (7.4-10.4); MONO % 7.3 %; NEUT % 68.3 %; PLATELET COUNT 196 K/uL (130-400); RED BLOOD COUNT 3.96 M/uL (4.7-6.1); WHITE BLOOD COUNT 9.32 K/uL (4.8-10.8)
[2016-08-24 13:23] LABS: BASO ABS # 0.02 K/uL (0-0.2)
[2016-08-24 13:29] LABS: COMPLETE YES; MEAN CORPUSCULAR HGB CONC 34.3 g/dl (32-36)
[2016-08-24] MEDS ORDERED: HEPARIN 25,000 UNIT/500ML D5W 500 ML IV PRN (13:45)
[2016-08-24] MEDS ORDERED: EPTIFIBATIDE INJ 75 MG PREMIXED IV SCH (13:45)
--- NOTE | 2016-08-24 13:53 | Cardiac Catheterization ---
Procedure Note Procedure Date Aug 24, 2016. Pre-Procedure Diagnosis Non STEMI, Acute Coronary Syndrome AUC Score 8 Post-Procedure Diagnosis Severe CAD, Normal Intracardiac Pressures Procedure(s) Performed Coronary Angiography, Left Heart Cath Outdoor Illuminating Engineer Dr. Moyer Insurance Policy Clerk(s) ODALYS Lacey Estimated Blood Loss <15 Medication(s) Fentanyl, Heparin, Integrilin (Started at completion of procedure), Norepinephrine ( intra-arterial), Versed, Lidocaine 1% Summary of Findings Clinical indications: New onset anginal symptoms, non ST-elevation myocardial infarction, electrocardiogram with reversible inferior, lateral, and anterior ST depressions. Significant CAD risk factors including family history of premature coronary artery disease, hypertension, dyslipidemia, and ongoing cigarette smoking. echocardiography revealed normal overall LV systolic function , mild anterior septal and apical hypokinesis, mild tricuspid regurgitation, aortic valve sclerosis without significant stenosis, trace aortic regurgitation , trace mitral regurgitation, and trace pulmonic regurgitation. Mild left ventricular hypertrophy. Type 1 left ventricular diastolic dysfunction. Catheterization site: 6 Norwegian glide sheath right radial artery. Catheters: 6 Norwegian brachial 3.5 diagnostic catheter. This was used to perform left heart catheterization and coronary angiography. Hemostasis: Terumo TR band. Complications: None. Findings: Fluoroscopy revealed extensive coronary calcifications in both the right and left coronary arteries and the mitral annulus. The coronary circulation was right dominant. Left main coronary was a large caliber vessel. The distal left main appeared to have an 80 percent stenosis involving the origin of the left anterior descending and left circumflex coronary arteries. The distal left main had a lucent appearance The ostium of the left anterior descending coronary had an eccentric 90-95 percent stenosis. the proximal LAD had a 30 percent stenosis. The proximal LAD gave rise to a small caliber 1st diagonal artery and then to a small to medium caliber 2nd diagonal artery. The 2nd diagonal had an ostial 50 percent stenosis. The mid LAD following the origin of the 2nd diagonal had a 50 percent stenosis. The mid LAD then had diffuse atherosclerotic disease with 10-30 percent luminal diameter narrowing. The distal LAD had minor luminal irregularities. It terminated at the apex of the left ventricle as a very small caliber vessel. the ostium of the left circumflex had a 50-75 percent stenosis. The proximal left circumflex had diffuse atherosclerotic disease with 30-50 percent stenoses. The mid left circumflex had sequential 30-50 percent and 30 percent stenoses. This was prior to the origin of a long small caliber 3rd marginal artery. The proximal and mid left circumflex gave rise to very small caliber 1st and 2nd marginals. The ostium of the 3rd marginal had a 30 percent stenosis. Mid segment had a 20 percent stenosis. The distal circumflex had a 30 percent stenosis. The distal circumflex gave rise to a very small caliber 4th marginal artery and a small caliber 5th marginal artery. It then gave rise to a small caliber posterolateral artery. The right coronary artery was a large caliber vessel which had a proximal 30 percent stenosis followed by an E centric 90 percent stenosis. The mid RCA had sequential and E centric 75-90 percent stenoses. The distal RCA had sequential 75 percent stenoses. The distal RCA gave rise to a long small-caliber posterior descending artery which had a 30 percent proximal stenosis. Its mid segment had a 20 percent stenosis. The distal RCA gave rise to a long small to medium caliber posterolateral artery which had an ostial 30 percent stenosis and 50 percent proximal stenosis. TREV 3 was present in all branches of the left coronary artery and right coronary artery. Plan: The patient has severe distal left main, ostial LAD, and proximal and mid RCA stenoses. Moderate ostial left circumflex stenosis. Cannot exclude an ulcerated plaque in the distal left main involving the origins of the LAD and left circumflex coronary arteries. There is a lucent appearance to the distal left main. Recommend CABG surgery. Transfer to tertiary Cardiac Center for CABG surgery. Intravenous Integrilin was started to help prevent intracoronary thrombosis. This can be discontinued prior to surgery. Intravenous heparin will be started following documentation of hemostasis at the right radial catheterization site. The patient did receive intravenous heparin during the procedure. He remained on aspirin, beta-ольга, EUGENIE inhibitor, and statin therapy. Hemodynamics Rest Ao: 99/54/74 mm Hg Final Ao: 99/57/76 mm Hg LV: 100/6 mm Hg Recommendations CABG Specimens None Radiation Exposure (mGy) 341 Contrast (mls) 60 ml Optiray Fluids (cc crystalloids) 55 Drains none Anesthesia IV versed and fentanyl Procedural Complication(s) None Disposition PCU ACC Data Cardiac Status Clinical evaluation leading to the procedure CAD Presntation: Non STEMI Anginal Classification: CCS III Heart Failure: No Cardiogenic Shock w/in 24Hrs: No Cardiac Arrest w/in 24Hrs: No Imaging studies past 6 months: Yes Stress studies past 6 months: No Standard Exercise Stress Test: No Stress Echocardiogram: No Stress Testing w/SPECT MPI: No Cardiac CTA: No Coronary Anatomy Dominant: Right Left Main (% Stenosis): Distal (80) LAD (% Stenosis): Ostial (90-95), Proximal (30), Mid (50,10-30), Distal (0-10) D1 (% Stenosis): Normal D2 (% Stenosis): Ostial (50) Circumflex (% Stenosis): Ostial (50-75), Proximal (30-50), Mid (30-50,30), Distal OM1 (% Stenosis): Normal OM2 (% Stenosis): Normal OM3 (% Stenosis): Ostial (30), Mid (20) RCA (% Stenosis): Proximal (30,90), Mid (75-90), Distal (75,75) R PDA (% Stenosis): Proximal (30), Mid (20) R PL1 (% Stenosis): Ostial (30), Proximal (50) Left Ventricular Angiography EF (%): NA Diagnostic Status: Elective Closure Device Percutaneous Entry Location: Radial Closure Device: Radial Band Recommendations: CABG
--- NOTE | 2016-08-24 15:44 | Discharge Summary ---
Discharge Summary Admission Date: Aug 23, 2016 at 23:10 Discharge Date: Aug 24, 2016 Discharge Disposition: Acute care facility Principal Diagnosis: NSTEMI Problems/Secondary Diagnoses: Hypertension, Hypercholesterolemia Immunizations: Have You Had Influenza Vaccine: Yes History of Tetanus Vaccine?: Unknown History of Pneumococcal: No History of Hepatitis B Vaccine: No Procedures: Cardiac Status Clinical evaluation leading to the procedure CAD Presntation: Non STEMI Anginal Classification: CCS III Heart Failure: No Cardiogenic Shock w/in 24Hrs: No Cardiac Arrest w/in 24Hrs: No Imaging studies past 6 months: Yes Stress studies past 6 months: No Standard Exercise Stress Test: No Stress Echocardiogram: No Stress Testing w/SPECT MPI: No Cardiac CTA: No Coronary Anatomy Dominant: Right Left Main (% Stenosis): Distal (80) LAD (% Stenosis): Ostial (90-95), Proximal (30), Mid (50,10-30), Distal (0-10) D1 (% Stenosis): Normal D2 (% Stenosis): Ostial (50) Circumflex (% Stenosis): Ostial (50-75), Proximal (30-50), Mid (30-50,30), Distal OM1 (% Stenosis): Normal OM2 (% Stenosis): Normal OM3 (% Stenosis): Ostial (30), Mid (20) RCA (% Stenosis): Proximal (30,90), Mid (75-90), Distal (75,75) R PDA (% Stenosis): Proximal (30), Mid (20) R PL1 (% Stenosis): Ostial (30), Proximal (50) Left Ventricular Angiography EF (%): NA Diagnostic Status: Elective Closure Device Percutaneous Entry Location: Radial Closure Device: Radial Band Recommendations: CABG Consultations: Cardiology (Shoaib Wu MD) Discharge Exam Review of systems negative unless stated in the hospital course. Physical Exam: General Appearance: WD/WN, no apparent distress Eyes: normal inspection, EOMI ENT: hearing grossly normal, pharynx normal Neck: supple, no adenopathy, no JVD Respiratory/Chest: lungs clear, no respiratory distress Cardiovascular: regular rate, rhythm, no gallop, no murmur Abdomen / GI: normal bowel sounds, non tender, soft Extremities: no calf tenderness, no pedal edema Neurologic/Psychiatric: alert, normal mood/affect, oriented x 3 Skin: normal color, warm/dry, no rash Lymphatic: no adenopathy (Shoaib Wu MD) Review of Systems: Constitutional: No fever Respiratory: No shortness of breath Cardiovascular: No chest pain Abdomen: No nausea, No pain Physical Exam: General Appearance: no apparent distress Respiratory/Chest: lungs clear, no respiratory distress Cardiovascular: regular rate, rhythm Abdomen / GI: normal bowel sounds, non tender, soft Neurologic/Psychiatric: alert, oriented x 3 Skin: warm/dry (Keren Cruz M.D.) Hospital Course Patient is a pleasant 61 year old male who presents with an episode of exertional chest pain overnight. EKG was notable for anterior ST depression. Troponins were noted positive. Patient has remote history of SAH, so had neurology consult and repeat imaging ( CT brain without contrast and CT angiogram of the head) to rule out existing bleed or risk of bleeding with cardiac catheterization. Patient was taken to the molder labels. He tolerated the procedure without incident. Catheterization findings were as follows: - The patient has severe distal left main, ostial LAD, and proximal and mid RCA stenoses. - Moderate ostial left circumflex stenosis. - Cannot exclude an ulcerated plaque in the distal left main involving the origins of the LAD and left circumflex coronary arteries. - There is a lucent appearance to the distal left main. - Recommend CABG surgery; Transfer to tertiary Cardiac Center for CABG surgery. Dr. Moyer discussed the case with Dr. Chavarria at [facility] who agreed to accept the patient. En route, patient transported on intravenous Integrilin was started to help prevent intracoronary thrombosis. This can be discontinued prior to surgery. Intravenous heparin will be started following documentation of hemostasis at the right radial catheterization site. The patient did receive intravenous heparin during the procedure. The patient was discharged in stable condition Total Time Spent: Less than 30 minutes This includes examination of the patient, discharge planning, medication reconciliation, and communication with other providers. (Shoaib Wu MD) I have reviewed the medical record and performed a history and physical examination of this patient today. I have discussed the case with Dr. Wu. The above note reflects my findings, conclusions, and recommendations. Total Time Spent: Greater than 30 minutes (40) (Keren Cruz M.D.) Discharge Instructions Please refer to the electronic Patient Visit Report (Discharge Instructions) for additional information. (Shoaib Wu MD) Follow-Up Dr. Moyer following discharge from [facility] (Shoaib Wu MD) Additional Copies To Valentino Montoya D.O.Int.Med.; Octavio Moyer M.D.
[2016-08-24] MEDS ORDERED: LPR25 PO (15:47)
[2016-08-24] MEDS ORDERED: ZFRI4 IV (15:47)
[2016-08-24] MEDS ORDERED: NTRSLP4 SL (15:47)
[2016-08-24] MEDS ORDERED: ASPEC81 PO (15:47)
--- NOTE | 2016-08-24 15:51 | Discharge Instructions ---
Discharge Instructions Admission Reason for Admission: Acute Coronary Syndrome Discharge Discharge Diagnosis / Problem: NSTEMI; need for CABG Discharge Goals Goal(s): Therapeutic intervention Activity Recommendations Activity Limitations: as noted below (none until indicated by your physician) Lifting Limitations: until after follow-up appointment Exercise/Sports Limitations: until after follow-up appointment May Resume Sexual Activity: after follow-up appointment . Instructions / Follow-Up Instructions / Follow-Up You came to [facility] for chest pain. You had EKG abnormalities and increases in your cardiac enzymes. You were taken for a cardiac catheterization procedure, which showed a critical narrowing in the vessels to your heart. Our kiln furniture caster recommends transfer to another facility where you have bypass surgery. You will be transferred to [facility] for surgery. We have arranged for transport. When you are discharged, you will need to follow-up with Dr. Octavio Moyer in the office. Please also see your primary care physician within 1 week of being discharged. It was a pleasure to be involved in your care and we wish you all the best. Current Hospital Diet Patient's current hospital diet: AHA Diet (Heart Healthy), Clear Liquid Diet Discharge Diet Recommended Diet: Low Sodium Diet (2gm Na) Pending Studies Studies pending at discharge: no Medical Emergencies . Who to Call and When: Medical Emergencies: If at any time you feel your situation is an emergency, please call 911 immediately. . Non-Emergent Contact Non-Emergency issues call your: Primary Care Provider Call Non-Emergent contact if: you have a fever, your pain is not controlled . . "Provider Documentation" section prepared by Shoaib Wu. VTE Core Measure Inpt VTE Proph given/why not?: Enoxaparin (Lovenox)SQ (IV), SCD's
[2016-08-24 18:09] LABS: PARTIAL THROMBOPLASTIN RATIO 2.1
[2016-08-24 18:21] LABS: CKMB/CK RATIO 2.7 (0-3.0)
[2016-08-24 20:53] LABS: PARTIAL THROMBOPLASTIN RATIO 2.5
[2016-08-24] MEDS ORDERED: SIMVASTATIN 80 MG TAB PO SCH (21:00)
[2016-08-25] MEDS ORDERED: Integrelin infusion --> STOP ORDER ONE (10:00)
[2016-08-27] MEDS ORDERED: Integrelin infusion --> STOP ORDER ONE (10:00)
[2016-10-15] MEDS ORDERED: ASCO100C2 PO (15:39)
[2016-10-15] MEDS ORDERED: METO25TA56 PO (15:39)
[2016-10-15] MEDS ORDERED: ATOR-24 PO (15:39)
[2016-10-15] MEDS ORDERED: CLOP1TAB15 PO (15:39)
[2016-10-15] MEDS ORDERED: CHOL1000 PO (15:39)
[2016-10-21] MEDS ORDERED: METO1TAB68 PO (12:41)
[2016-10-21] MEDS ORDERED: LVNIS80 SQ (12:41)
[2016-10-21] MEDS ORDERED: CMD/25 PO (12:41)
[2016-11-01] MEDS ORDERED: LISI5TAB PO (11:45)
[2016-11-06] MEDS ORDERED: WARF2.5T8 PO (12:34)
--- NOTE | 2016-11-07 11:59 | Cardiology Consultation ---
Cardiology Consultation Date of Service Nov 07, 2016. Cardiology Consultation This patient was seen by me on his 08/23/16 admission. My cardiology consult incorrectly states that the patient was smoking cigarettes on a daily basis. This is erroneous. He actually stopped smoking cigarettes 18 years ago. He is a former cigarette smoker,not an active smoker. Please note this error. Thank you, Stephanie Moyer MD
[2016-11-14] MEDS ORDERED: WARF2.5T8 PO ×2 (11:40)
[2017-01-11] MEDS ORDERED: METO1TAB69 PO (12:59)
== END 2016-08-24 23:56 | disposition short-term general hospital (02) | DRG 282 ==
LOC: ENRESERVDT → ENRESERVTM → C.EDB 21:25 → C.2T 23:10
PROVIDERS: ADMIT Hospitalist; ATTEND Family Medicine
PROC: 4A023N7 Measurement of Cardiac Sampling and Pressure, Left Heart, Percutaneous Approach (ICD-10-PCS; principal; 2016-08-24 12:09)
PROC: B211YZZ Fluoroscopy of Multiple Coronary Arteries using Other Contrast (ICD-10-PCS; principal; 2016-08-24 12:09)
DX: I21.4 Non-ST elevation (NSTEMI) myocardial infarction (principal); I25.10 Atherosclerotic heart disease of native coronary artery without angina pectoris; I10 Essential (primary) hypertension; E78.00 Pure hypercholesterolemia, unspecified; E78.5 Hyperlipidemia, unspecified; F17.210 Nicotine dependence, cigarettes, uncomplicated; Z86.79 Personal history of other diseases of the circulatory system; Z82.49 Family history of ischemic heart disease and other diseases of the circulatory system; Z83.49 Family history of other endocrine, nutritional and metabolic diseases; Z79.899 Other long term (current) drug therapy

== ENCOUNTER → 2016-09-13 | Outpatient (CLI) | payer OTHER ==
[~2016-09-13] MED LIST changes: +ASCO100061 PO; +ASCO100C2 PO; +ASPEC81 PO; +ASPI81TA28 PO; +ATOR-24 PO; +BILB1CAP PO; +CHOL1000 PO; +CLOP1TAB15 PO; +CMD/25 PO; +FEXO1TAB49 PO; -FLUT0.15 NAE; +FOLI800T PO; +LISI-461 PO; +LISI5TAB PO; +LPR25 PO; +LVNIS80 SQ; +METO1TAB68 PO; +METO1TAB69 PO; +METO25TA56 PO; +MULT-506 PO; +NTRSLP4 SL; +POME250C2 PO; -POMEGRANATE PO; +TURM500T PO; -TURMERIC PO; +WARF2.5T8 PO; +ZFRI4 IV
[2016-09-13 17:32] LABS: BASO % 0.6 %; BASO ABS # 0.07 K/uL (0-0.2); COMPLETE YES; EOS % 5.9 %; HEMATOCRIT 38.7 % (42-52); IG% 0.4 %; LYMPH % 13.4 %; LYMPH ABS # 1.69 K/uL (1.2-3.4); MEAN CELL VOLUME 95.6 fL (80-100); MEAN CORPUSCULAR HEMOGLOBIN 30.4 pg (25-34); MEAN CORPUSCULAR HGB CONC 31.8 g/dl (32-36); MEAN PLATELET VOLUME 8.8 fL (7.4-10.4); MONO % 5.8 %; NEUT % 73.9 %; PLATELET COUNT 833 K/uL (130-400); RED BLOOD COUNT 4.05 M/uL (4.7-6.1); WHITE BLOOD COUNT 12.65 K/uL (4.8-10.8)
[2016-09-13 17:46] LABS: ALT/SGPT 36 U/L (12-78); AST/SGOT 18 U/L (15-37); BLOOD UREA NITROGEN 17 mg/dl (7-18); BUN/CREATININE RATIO 14.4 (10-20); CALCIUM 9.4 mg/dl (8.5-10.1); CARBON DIOXIDE 27 mmol/L (21-32); CHLORIDE 102 mmol/L (98-107); GLUCOSE 99 mg/dl (70-99); POTASSIUM 4.2 mmol/L (3.5-5.1); SODIUM 139 mmol/L (136-145)
[2016-09-13 17:55] LABS: ALKALINE PHOSPHATASE 82 U/L (45-117); FERRITIN 487.9 ng/ml (8.0-388.0); TOTAL IRON BINDING CAPACITY 362 mcg/dl (250-450)
== END | disposition home or self-care (01) ==
LOC: C.LABBC 13:52
PROVIDERS: ATTEND Family Medicine
DX: D64.9 Anemia, unspecified (principal); I25.10 Atherosclerotic heart disease of native coronary artery without angina pectoris; Z79.899 Other long term (current) drug therapy

== ENCOUNTER → 2016-09-27 | Outpatient (CLI) | payer OTHER ==
[2016-09-27 17:56] LABS: BASO % 0.5 %; BASO ABS # 0.05 K/uL (0-0.2); COMPLETE YES; EOS % 13.9 %; HEMATOCRIT 40.6 % (42-52); IG% 0.1 %; LYMPH % 22.2 %; LYMPH ABS # 2.26 K/uL (1.2-3.4); MEAN CELL VOLUME 94.4 fL (80-100); MEAN CORPUSCULAR HEMOGLOBIN 30.2 pg (25-34); MEAN PLATELET VOLUME 9.6 fL (7.4-10.4); MONO % 5.3 %; PLATELET COUNT 361 K/uL (130-400); WHITE BLOOD COUNT 10.17 K/uL (4.8-10.8)
== END | disposition home or self-care (01) ==
LOC: C.LABBC 14:32
PROVIDERS: ATTEND Family Medicine
DX: D47.3 Essential (hemorrhagic) thrombocythemia (principal)

== ENCOUNTER 2016-10-20 22:17 | Inpatient (IN) | payer OTHER ==
[~2016-10-20] VITALS: Ht 172.7 cm; Wt 79.7 kg
[~2016-10-20 22:17] MED LIST changes: -ASCO100061 PO; -ASPI81TA28 PO; -ATEN-175 PO; -CHOL1000 PO; -CMD/25 PO; -HYDR25TA4 PO; -LISI-461 PO; -LISI20TA3 PO; -LISI5TAB PO; -LPR25 PO; -LVNIS80 SQ; -METO1TAB68 PO; -METO1TAB69 PO; -NTRSLP4 SL; -SIMV80TA2 PO; -WARF2.5T8 PO; -ZFRI4 IV
[2016-10-20] MEDS ORDERED: ASPI81TA28 PO (22:39)
[2016-10-20 22:58] LABS: BASO % 0.6 %; BASO ABS # 0.06 K/uL (0-0.2); COMPLETE YES; EOS % 1.7 %; HEMATOCRIT 42.3 % (42-52); IG% 0.3 %; LYMPH % 18.6 %; LYMPH ABS # 1.88 K/uL (1.2-3.4); MEAN CELL VOLUME 92.6 fL (80-100); MEAN CORPUSCULAR HEMOGLOBIN 31.3 pg (25-34); MEAN CORPUSCULAR HGB CONC 33.8 g/dl (32-36); MEAN PLATELET VOLUME 9.3 fL (7.4-10.4); MONO % 4.8 %; PLATELET COUNT 303 K/uL (130-400); RED BLOOD COUNT 4.57 M/uL (4.7-6.1); WHITE BLOOD COUNT 10.12 K/uL (4.8-10.8)
[2016-10-20 23:14] LABS: PARTIAL THROMBOPLASTIN RATIO 1.3; PROTHROMBIN TIME (PATIENT) 10.8 SECONDS (9.0-12.0)
[2016-10-20 23:20] LABS: ALT/SGPT 25 U/L (12-78); AST/SGOT 19 U/L (15-37); BLOOD UREA NITROGEN 15 mg/dl (7-18); BUN/CREATININE RATIO 16.4 (10-20); CALCIUM 8.9 mg/dl (8.5-10.1); CARBON DIOXIDE 26 mmol/L (21-32); CHLORIDE 104 mmol/L (98-107); CREATININE 0.89 mg/dl (0.60-1.40); GLUCOSE 91 mg/dl (70-99); MAGNESIUM 1.9 mg/dl (1.8-2.4); POTASSIUM 3.9 mmol/L (3.5-5.1); SODIUM 142 mmol/L (136-145)
[2016-10-20 23:31] LABS: ALKALINE PHOSPHATASE 67 U/L (45-117)
[2016-10-21] MEDS ORDERED: OPTIRAY 320 IV PRN (00:45)
[2016-10-21] MEDS ORDERED: METOPROLOL TARTRATE 1 MG/ML VIAL IV STA ×2 (03:11→03:33)
[2016-10-21] MEDS ORDERED: ACETAMINOPHEN 500 MG TAB PO ONE (03:11)
[2016-10-21] MEDS ORDERED: ACETAMINOPHEN 500 MG TAB PO STA (03:23)
[2016-10-21] MEDS ORDERED: HydrALAZINE HCL 20 MG/ML VIAL IV. STA (03:36)
--- NOTE | 2016-10-21 03:56 | EMERGENCY ROOM VISIT NOTE ---
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 pt just had CABG done Aug 28, pt denies cp, sob, nausea or diaphoresis History of Present Illness The patient is a 61 year old male who presents to the Emergency Room with complaints of heart fluttering for the past 2 hours. Patient had CABG and [place] on 08/28/[address] Edwards. He was initially seen here and then transferred there for further evaluation and treatment. He had a two-way bypass and the right leg veins were used and has had some swelling in his right leg and has been getting progressively better. Patient states he was doing fine until tonight. He did drink 32 ounces of coffee. He occasionally drinks alcohol tonight. None tonight. Patient followed up as scheduled on the with cardiology and everything was going well. He has a history of paroxysmal atrial fibrillation and after the surgery they DC'd his amiodarone. Patient denies chest pain, dyspnea, fever, chills, nausea, vomiting, diarrhea, leg pain, lightheadedness, dizziness, diaphoresis. Patient states he can feel his heart fluttering. He was concerned he was in A. fib. Review of Systems See HPI for pertinent positives & negatives. A total of 10 systems reviewed and were otherwise negative. Past Medical/Surgical History Medical Problems: (1) Acute coronary syndrome (2) Cervicalgia (3) Hyperlipidemia (4) Hypertension (5) Subarachnoid hemorrhage Family History FH: heart disease Social History Smoking Status: Never Smoker Drug Use: none Housing Status: lives with family Occupation Status: employed Current/Historical Medications Scheduled Ascorbic Acid (Vitamin C), 100 MG PO DAILY Aspirin (Aspirin Ec), 81 MG PO DAILY Atorvastatin (Lipitor), 40 MG PO DAILY Bilberry (Vaccinium Myrtillus) (Bilberry), 100 MG PO DAILY Cholecalciferol (Vitamin D), 2,000 UNITS PO QAM Clopidogrel (Plavix), 75 MG PO DAILY Coenzyme Q10 (Ubidecarenone) (Coq10), 100 MG PO QAM Fish Oil (Warbranch-3), 1,200 MG PO QAM Folic Acid (Folic Acid), 800 MCG PO DAILY Metoprolol Tartrate (Lopressor) (Lopressor), 25 MG PO BID Multivitamin (Multivitamin), 1 TAB PO DAILY Pomegranate (Punica Granatum) (Pomegranate), 250 MG PO DAILY Turmeric (Curcuma Longa) (Turmeric), 500 MG PO DAILY Scheduled PRN Epinephrine (Epipen 2-Armin), 1 DOSE INJ DIRECTED PRN for ALLERGIC REACTION Fexofenadine Hcl (Hellen Allergy), 180 MG PO DAILY PRN for ALLERGIC REACTION Allergies Coded Allergies: No Known Allergies (Verified , 12/29/15) Physical Exam Vital Signs Date Time Temp Pulse Resp B/P Pulse Ox O2 Delivery O2 Flow Rate FiO2 10/21/16 03:17 99 183/126 10/21/16 03:04 99 18 183/126 97 Room Air 10/21/16 01:02 51 18 174/131 98 Room Air 10/21/16 00:21 97 10/20/16 23:51 100 18 176/85 98 Room Air 10/20/16 22:51 97 Room Air 10/20/16 22:51 97 Room Air 10/20/16 22:31 107 10/20/16 22:20 36.6 97 22 232/134 97 Room Air Physical Exam VITALS: Vitals are noted on the nurse's note and reviewed by myself. Vital signs hypertensive. GENERAL: Pleasant male, in no acute distress, nondiaphoretic, well-developed well-nourished. SKIN: The skin was without rashes, erythema, edema, or bruising. There is no tenting of the skin. Capillary reflex less than 2 seconds. HEAD: Normocephalic atraumatic. EARS: External auditory canals clear, tympanic membranes pearly thomas without erythema or effusion bilaterally. EYES: Pupils equal round and reactive to light and accommodation. Conjunctivae without injection, sclerae without icterus. Extraocular movements intact. NOSE: Patent, turbinates without inflammation or discharge. MOUTH: Mucous membranes moist. Pharynx without erythema or exudate. Uvula midline. Airway patent. Tongue does not deviate. NECK: Supple without nuchal rigidity. No lymphadenopathy. No thyromegaly. Cervical spine is nontender. No JVD. HEART: Regular rate and rhythm frequent PVCs LUNGS: Clear to auscultation bilaterally without wheezes, rales or rhonchi. No dullness to percussion. No retractions or accessory muscle use. ABDOMEN: Positive bowel sounds x 4. Normal tympanic percussion. Soft, nontender, without masses or organomegaly. Lux sign negative. No guarding or rebound tenderness. MUSCULOSKELETAL: No muscle atrophy, erythema, noted. Right leg slightly more edematous than the left leg. NEURO: Patient was alert and oriented to person place and time. Normal sensation to light and sharp touch. No focal neurological deficits. Medical Decision & Procedures Laboratory Results 10/20/16 22:30 Red Blood Count 4.57, Mean Corpuscular Volume 92.6, Mean Corpuscular Hemoglobin 31.3, Mean Corpuscular Hemoglobin Concent 33.8, Mean Platelet Volume 9.3, Neutrophils (%) (Auto) 74.0, Lymphocytes (%) (Auto) 18.6, Monocytes (%) (Auto) 4.8, Eosinophils (%) (Auto) 1.7, Basophils (%) (Auto) 0.6, Neutrophils # (Auto) 7.49, Lymphocytes # (Auto) 1.88, Monocytes # (Auto) 0.49, Eosinophils # (Auto) 0.17, Basophils # (Auto) 0.06 10/20/16 22:30 Test 10/20/16 22:30 White Blood Count 10.12 K/uL (4.8-10.8) Red Blood Count 4.57 M/uL (4.7-6.1) Hemoglobin 14.3 g/dL (14.0-18.0) Hematocrit 42.3 % (42-52) Mean Corpuscular Volume 92.6 fL (80-100) Mean Corpuscular Hemoglobin 31.3 pg (25-34) Mean Corpuscular Hemoglobin Concent 33.8 g/dl (32-36) Platelet Count 303 K/uL (130-400) Mean Platelet Volume 9.3 fL (7.4-10.4) Neutrophils (%) (Auto) 74.0 % Lymphocytes (%) (Auto) 18.6 % Monocytes (%) (Auto) 4.8 % Eosinophils (%) (Auto) 1.7 % Basophils (%) (Auto) 0.6 % Neutrophils # (Auto) 7.49 K/uL (1.4-6.5) Lymphocytes # (Auto) 1.88 K/uL (1.2-3.4) Monocytes # (Auto) 0.49 K/uL (0.11-0.59) Eosinophils # (Auto) 0.17 K/uL (0-0.5) Basophils # (Auto) 0.06 K/uL (0-0.2) RDW Standard Deviation 50.0 fL (36.4-46.3) RDW Coefficient of Variation 14.7 % (11.5-14.5) Immature Granulocyte % (Auto) 0.3 % Immature Granulocyte # (Auto) 0.03 K/uL (0.00-0.02) Prothrombin Time 10.8 SECONDS (9.0-12.0) Prothromb Time International Ratio 1.0 (0.9-1.1) Activated Partial Thromboplast Time 32.9 SECONDS (21.0-31.0) Partial Thromboplastin Ratio 1.3 D-Dimer 820 ug/L FEU (0-500) Anion Gap 12.0 mmol/L (3-11) Est Creatinine Clear Calc Drug Dose 89.9 ml/min Estimated GFR () 105.5 Estimated GFR (Non- 91.0 BUN/Creatinine Ratio 16.4 (10-20) Calcium Level 8.9 mg/dl (8.5-10.1) Magnesium Level 1.9 mg/dl (1.8-2.4) Total Bilirubin 0.5 mg/dl (0.2-1) Direct Bilirubin 0.2 mg/dl (0-0.2) Aspartate Amino Transf (AST/SGOT) 19 U/L (15-37) Alanine Aminotransferase (ALT/SGPT) 25 U/L (12-78) Alkaline Phosphatase 67 U/L (45-117) Troponin I < 0.015 ng/ml (0-0.045) Total Protein 8.1 gm/dl (6.4-8.2) Albumin 4.2 gm/dl (3.4-5.0) Lipase 97 U/L (73-393) Thyroid Stimulating Hormone (TSH) 1.730 uIu/ml (0.300-4.500) Medications Administered Medications (Trade) Dose Ordered Sig/Shanae Route Start Time Stop Time Status Last Admin Dose Admin Metoprolol Tartrate (Lopressor Iv) 5 mg NOW STAT IV 10/21/16 03:11 10/21/16 03:12 DC 10/21/16 03:17 5 MG Acetaminophen (Tylenol Tab) 1,000 mg STK-MED ONCE PO 10/21/16 03:11 10/21/16 03:14 DC 10/21/16 03:18 1,000 MG Hydralazine HCl (HydrALAZINE INJ) 5 mg NOW STAT IV. 10/21/16 03:36 10/21/16 03:39 DC 10/21/16 03:47 5 MG ED Course Prior records/ancillary studies reviewed. Triage Nursing notes reviewed. Additional history obtained from family. The patient's history was concerning for palpitations. Differential diagnosis: Etiologies such as premature contractions, complication of recent heart surgery , electrolyte abnormality, cardiac dysrhythmia, thyroid dysfunction, pulmonary embolism, infection, gastrointestinal, as well as others were entertained. Physical examination: Benign as above. ER treatment provided: IV fluids On reassessment the patient felt better. Diagnostic interpretation by me: Cardiac monitoring revealed frequently PVCs The electrocardiogram was normal sinus, normal intervals, bigeminy PVCs, no acute ST-T wave changes, rate of 109. Impression sinus tachycardia with bigeminy PVCs interpreted by myself The labs revealed elevated d-dimer. Negative troponin, euthyroid Imaging studies: Chest x-ray no acute consolidation or pneumothorax per my interpretation Ultrasound was negative for DVT CTA is negative for PE per radiology Consultation: A consultation was placed with Dr Leiva, hospitalist. The case was discussed and diagnostics were reviewed. The patient was evaluated in the ER for further treatment. This appears to be consistent with bigeminy with heart fluttering and hypertensive urgency. Patient is given Lopressor and hydralazine. He will be evaluated by medicine for possible admission. He had frequent PVCs and bigeminy on the monitor and an EKG. No PE and CTA. No DVT on ultrasound. Euthyroid. Patient does drink a lot of coffee and occasional alcohol. This is unchanged. By the evaluation outlined above emergent etiologies such as electrolyte abnormality, thyroid dysfunction, pulmonary embolism, infection, as well as others were deemed relatively unlikely. The pt informed about the findings as listed above. All questions were answered and pleased with the treatment. Case reviewed with my attending Medical Decision As above Impression Primary Impression: Bigeminal rhythm Additional Impressions: Fluttering heart Hypertensive urgency Departure Information Dispostion Being Evaluated By Hospitalist Condition FAIR Referrals Valentino Montoya D.O.Int.Med. (PCP) Patient Instructions My [facility] Problem Qualifiers
[2016-10-21] MEDS ORDERED: METOPROLOL TARTRATE 50 MG TAB PO STA (04:18)
[2016-10-21] MEDS ORDERED: ACETAMINOPHEN 325 MG TAB PO PRN (04:30)
[2016-10-21] MEDS ORDERED: ZOLPIDEM TARTRATE 5 MG TAB PO PRN (04:30)
[2016-10-21] MEDS ORDERED: NITROGLYCERIN 0.4 MG SL PER TAB CHARGE SL PRN (04:30)
[2016-10-21] MEDS ORDERED: FEXOFENADINE HCL 180 MG TAB PO PRN (04:30)
[2016-10-21 05:10] VITALS: BP 178/128; PULSE 87; TEMP 36.6; O2SAT 97; Ht 172.7 cm; Wt 79.7 kg
--- NOTE | 2016-10-21 05:58 | History and Physical ---
History & Physical Date & Time of Service: Oct 21, 2016 at 05:46 Chief Complaint: Cardiac Dysrhythmia, S/P Cabg Primary Care Physician: Valentino Montoya D.O.Int.Med. History of Present Illness Source: patient, family The patient is a 61-year-old male who was admitted to [facility] from August 23 through August 24 for acute coronary syndrome. He underwent cardiac catheterization by Dr. Moyer on August 24, was found to have multivessel CAD, and underwent a CABG [address] Edwards in [place] on August 28. The patient reports he was doing well until tonight, when he noted a fluttering sensation in his chest which prompted him to come to emergency department for assessment he did have paroxysmal atrial fibrillation after bypass, and was on amiodarone for approximately 1 month which was then discontinued. His concern tonight with the fluttering was that he may have atrial fibrillation again. Past Medical/Surgical History Medical Problems: (1) Cervicalgia Status: Chronic (2) Hyperlipidemia Status: Chronic (3) Hypertension Status: Chronic (4) Subarachnoid hemorrhage Status: Resolved Family History FH: heart disease Social History Smoking Status: Never Smoker Smokeless Tobacco Use: No Alcohol Use: socially Drug Use: none Housing status: lives with family Occupational Status: employed Immunizations History of Influenza Vaccine: Yes History of Tetanus Vaccine?: Unknown History of Pneumococcal: No History of Hepatitis B Vaccine: No Multi-Drug Resistant Organisms History of MDRO: No Allergies Coded Allergies: No Known Allergies (Verified , 12/29/15) Home Medications Scheduled Ascorbic Acid (Vitamin C), 100 MG PO DAILY Aspirin (Aspirin Ec), 81 MG PO DAILY Atorvastatin (Lipitor), 40 MG PO DAILY Bilberry (Vaccinium Myrtillus) (Bilberry), 100 MG PO DAILY Cholecalciferol (Vitamin D), 2,000 UNITS PO QAM Clopidogrel (Plavix), 75 MG PO DAILY Coenzyme Q10 (Ubidecarenone) (Coq10), 100 MG PO QAM Fish Oil ([place]-3), 1,200 MG PO QAM Folic Acid (Folic Acid), 800 MCG PO DAILY Metoprolol Tartrate (Lopressor) (Lopressor), 25 MG PO BID Multivitamin (Multivitamin), 1 TAB PO DAILY Pomegranate (Punica Granatum) (Pomegranate), 250 MG PO DAILY Turmeric (Curcuma Longa) (Turmeric), 500 MG PO DAILY Scheduled PRN Epinephrine (Epipen 2-Armin), 1 DOSE INJ DIRECTED PRN for ALLERGIC REACTION Fexofenadine Hcl (Hellen Allergy), 180 MG PO DAILY PRN for ALLERGIC REACTION Review of Systems The patient denies chest pain, shortness of breath, cough, lower extremity swelling, vision change, hearing change, sore throat, fevers, chills, sweats, weight change, fatigue, nausea, vomiting, abdominal pain, pelvic pain, blood in urine or stool, dysuria, urinary frequency or urgency, lightheadedness, dizziness, headache, memory loss, rash, abnormal bruising or bleeding, imbalance , focal or generalized weakness, numbness or tingling in arms or legs, arthralgias or myalgias, back or neck pain, night sweats, or allergy symptoms. The review of systems is otherwise negative other than for that already noted above, and at least 10 systems have been reviewed. Physical Exam Vital Signs Date Time Temp Pulse Resp B/P Pulse Ox O2 Delivery O2 Flow Rate FiO2 10/21/16 05:10 36.6 87 18 178/128 97 Room Air 10/21/16 04:52 86 18 162/86 97 Room Air 10/21/16 04:50 89 29 97 10/21/16 04:46 162/86 10/21/16 04:45 88 18 97 10/21/16 04:40 82 17 97 10/21/16 04:35 87 16 97 10/21/16 04:31 146/99 10/21/16 04:30 88 23 97 10/21/16 04:25 88 15 97 10/21/16 04:20 90 18 97 10/21/16 04:16 144/94 10/21/16 04:15 87 17 97 10/21/16 04:10 82 20 97 10/21/16 04:05 92 22 98 10/21/16 04:01 157/109 10/21/16 04:00 88 22 97 10/21/16 03:42 82 18 143/95 97 Room Air 10/21/16 03:17 99 183/126 10/21/16 03:04 99 18 183/126 97 Room Air 10/21/16 01:02 51 18 174/131 98 Room Air 10/21/16 00:21 97 10/20/16 23:51 100 18 176/85 98 Room Air 10/20/16 22:51 97 Room Air 10/20/16 22:51 97 Room Air 10/20/16 22:31 107 10/20/16 22:20 36.6 97 22 232/134 97 Room Air The patient is awake, well-developed and adequately nourished, alert and oriented 3, normocephalic and atraumatic, lying in bed and in no acute distress. HEENT--PERRL, EOMI, mucous membranes and oropharynx dry. Neck--supple, no JVD or bruits, thyroid normal, trachea midline, no adenopathy. Heart--normal S1 and S2, no extra beats, no murmurs, rubs or gallops. Lungs--clear bilaterally with good air movement, no respiratory distress, no accessory muscle use. Abdomen--normal bowel sounds and soft, nontender and nondistended, no hernias or masses, no organomegaly. Extremities--no cyanosis, clubbing or edema. There are good distal pulses b/l. Dermatologic--normal skin turgor, normal color, warm and dry, no abnormal lymph nodes, no rash. Neurologic--cranial nerves II through XII grossly intact, motor and sensory examination normal. Rheumatologic--normal range of motion, nontender, muscles and joints. Psychiatric--normal affect. Diagnostics Laboratory Results Results Past 24 Hours Test 10/20/16 22:30 Range/Units White Blood Count 10.12 4.8-10.8 K/uL Red Blood Count 4.57 4.7-6.1 M/uL Hemoglobin 14.3 14.0-18.0 g/dL Hematocrit 42.3 42-52 % Mean Corpuscular Volume 92.6 80-100 fL Mean Corpuscular Hemoglobin 31.3 25-34 pg Mean Corpuscular Hemoglobin Concent 33.8 32-36 g/dl Platelet Count 303 130-400 K/uL Mean Platelet Volume 9.3 7.4-10.4 fL Neutrophils (%) (Auto) 74.0 % Lymphocytes (%) (Auto) 18.6 % Monocytes (%) (Auto) 4.8 % Eosinophils (%) (Auto) 1.7 % Basophils (%) (Auto) 0.6 % Neutrophils # (Auto) 7.49 1.4-6.5 K/uL Lymphocytes # (Auto) 1.88 1.2-3.4 K/uL Monocytes # (Auto) 0.49 0.11-0.59 K/uL Eosinophils # (Auto) 0.17 0-0.5 K/uL Basophils # (Auto) 0.06 0-0.2 K/uL RDW Standard Deviation 50.0 36.4-46.3 fL RDW Coefficient of Variation 14.7 11.5-14.5 % Immature Granulocyte % (Auto) 0.3 % Immature Granulocyte # (Auto) 0.03 0.00-0.02 K/uL Prothrombin Time 10.8 9.0-12.0 SECONDS Prothromb Time International Ratio 1.0 0.9-1.1 Activated Partial Thromboplast Time 32.9 21.0-31.0 SECONDS Partial Thromboplastin Ratio 1.3 D-Dimer 820 0-500 ug/L FEU Sodium Level 142 136-145 mmol/L Potassium Level 3.9 3.5-5.1 mmol/L Chloride Level 104 98-107 mmol/L Carbon Dioxide Level 26 21-32 mmol/L Anion Gap 12.0 3-11 mmol/L Blood Urea Nitrogen 15 7-18 mg/dl Creatinine 0.89 0.60-1.40 mg/dl Est Creatinine Clear Calc Drug Dose 89.9 ml/min Estimated GFR () 105.5 Estimated GFR (Non- 91.0 BUN/Creatinine Ratio 16.4 10-20 Random Glucose 91 70-99 mg/dl Calcium Level 8.9 8.5-10.1 mg/dl Magnesium Level 1.9 1.8-2.4 mg/dl Total Bilirubin 0.5 0.2-1 mg/dl Direct Bilirubin 0.2 0-0.2 mg/dl Aspartate Amino Transf (AST/SGOT) 19 15-37 U/L Alanine Aminotransferase (ALT/SGPT) 25 12-78 U/L Alkaline Phosphatase 67 45-117 U/L Troponin I < 0.015 0-0.045 ng/ml Total Protein 8.1 6.4-8.2 gm/dl Albumin 4.2 3.4-5.0 gm/dl Lipase 97 73-393 U/L Thyroid Stimulating Hormone (TSH) 1.730 0.300-4.500 uIu/ml EKG EKG shows sinus tachycardia at 109 bpm, bigeminy pattern, LVH, no acute ST-T changes. Impression Assessment and Plan CAD/status post CABG 2 on 08/28/2016/palpitations with bigeminy pattern noted-- other than a fluttering sensation, the patient does not have any other symptoms related to the bigeminy pattern. He did have atrial fibrillation post bypass surgery, and was on amiodarone for approximately 1 month, but did have the side effect of significant itching. Would hold on antiarrhythmics at this point, and just continue to work on rate control. He was given Lopressor 5 mg IV in the emergency department, with a slowing of heart rate into the 80s, and near resolution of the bigeminy pattern to an occasional PVC pattern with continue sinus rhythm. The patient will be admitted to the telemetry unit, for serial cardiac enzymes, cardiac rhythm monitoring, and a 2-D echocardiogram with Dopplers. We'll continue aspirin 81 mg by mouth daily, clopidogrel 75 mg by mouth daily, and will give an additional metoprolol tartrate 25 mg by mouth now and continue it twice a day. Patient was advised to decrease his caffeine intake from 32 ounces by mouth daily. We'll consult his heavy equipment rental associate Dr. Moyer for his input. Hypercholesterolemia--continue atorvastatin 40 mg by mouth daily, CoQ10 100 mg by mouth every morning, fish oil 1200 mg by mouth every morning. Vitamin D deficiency--continue 2000 international units by mouth daily Level of Care Telemetry Advanced Directives Existing Advance Directive: No Existing Living Will: No Existing Power of Glass Robot Operator: No Resuscitation Status FULL RESUSCITATION VTE Prophylaxis VTE Risk Assessment Done? Y/N: Yes Risk Level: Moderate Given or contraindicated: SCD's
[2016-10-21] MEDS ORDERED: METOPROLOL TARTRATE 25 MG TAB PO STA (06:13)
[2016-10-21] MEDS ORDERED: METOPROLOL TARTRATE 1 MG/ML VIAL IV PRN (06:15)
[2016-10-21] MEDS ORDERED: NURSING VERBAL MED ORDER ONE (06:15)
--- NOTE | 2016-10-21 06:41 | DIAGNOSTIC IMAGING REPORT ---
ULTRASOUND BILATERAL LOWER EXTREMITY VENOUS CLINICAL HISTORY: Leg swelling. COMPARISON STUDY: No priors. TECHNIQUE: Real-time, grayscale, and color Doppler sonography of the deep veins of the right and left lower extremity was performed from the inguinal crease to the calf. Compression and augmentation were utilized. FINDINGS: There is trace and age indeterminant but chronic appearing thrombus identified within the right popliteal vein, likely related to a venous valve. The right popliteal vein is otherwise patent. There is no sonographic evidence of additional deep venous thrombosis identified in the right or left lower extremity. The bilateral common femoral, bilateral superficial femoral, and left popliteal veins are patent and normally compressible. The greater saphenous vein and the profunda femoris vein at the junction with the common femoral vein are clear in both legs. The visualized calf veins are patent bilaterally. IMPRESSION: 1. There is trace and age-indeterminate but chronic appearing thrombus identified within the right popliteal vein, likely related to a venous valve. 2. No additional deep venous thrombosis is identified in the right or left lower extremity. Electronically signed by: Obed Pickering M.D. 10/21/2016 6:40 AM Dictated Date/Time: 10/21/2016 6:38 AM
[2016-10-21] MEDS ORDERED: ENOXAPARIN 1 MG/KG SQ SCH (07:15)
[2016-10-21] MEDS ORDERED: PERFLUTREN LIPID MICROSPHERE (DEFINITY) IV ONE (07:21)
--- NOTE | 2016-10-21 07:33 | DIAGNOSTIC IMAGING REPORT ---
CT ANGIOGRAM OF THE CHEST CLINICAL HISTORY: Atypical chest pain. COMPARISON STUDY: Chest x-ray dated 10/20/2016. TECHNIQUE: Following the IV administration of 109 cc of Optiray 320, CT angiogram of the chest was performed from the upper abdomen to the thoracic inlet utilizing the pulmonary embolus protocol. Images are reviewed in the axial, sagittal, and coronal planes. 3-D MIPS images are created and assessed. IV contrast was administered without complication. CT DOSE: 436.96 mGy.cm FINDINGS: Thyroid: Imaged portions of the thyroid gland are normal in size and attenuation. Thoracic aorta: There is atherosclerotic calcification of the thoracic aorta is normal in caliber and demonstrates standard 3-vessel arch anatomy. No dissection is seen. Pulmonary vasculature: The pulmonary trunk is normal in caliber. There are no filling defects identified in main, lobar, or segmental pulmonary branches to suggest pulmonary embolus. Heart: The patient is status post midline sternotomy. The heart is enlarged and without pericardial effusion. The coronary arteries and mitral annulus are densely calcified. Lungs and pleural spaces: Evaluation of the lung parenchyma is degraded by respiratory motion artifact. There is mild emphysematous change. Dependent atelectasis is observed. No airspace consolidation or pleural effusion is identified. The trachea and central airways are clear. Mediastinum: There are scattered subcentimeter mediastinal lymph nodes. These are not pathologically enlarged by size criteria. Diana: Clear. Axillae: There is no axillary lymphadenopathy. Upper abdomen: Calcified gallstones are identified. A small hiatal hernia is observed. Advanced atherosclerotic calcification is noted in the partially imaged abdominal aorta. Skeletal structures: No lytic or blastic bony lesions are seen. There are healed left-sided rib fractures. IMPRESSION: 1. There is no evidence of pulmonary embolus in the main, lobar, or segmental pulmonary arteries. 2. Cardiomegaly. 3. There is no airspace consolidation or pleural effusion. 4. Cholelithiasis. Electronically signed by: Obed Pickering M.D. 10/21/2016 7:32 AM Dictated Date/Time: 10/21/2016 7:27 AM
--- NOTE | 2016-10-21 07:48 | DIAGNOSTIC IMAGING REPORT ---
SINGLE VIEW CHEST CLINICAL HISTORY: Atypical chest pain. FINDINGS: An AP, portable, upright chest radiograph is compared to study dated 10/20/2016. The examination is degraded by portable technique and patient rotation. The patient is status post midline sternotomy. The heart is enlarged and there is atherosclerotic calcification of the thoracic aorta. Chronic interstitial thickening is unchanged. No airspace consolidation, large pleural effusion, or pneumothorax is seen. The bony thorax is grossly intact. IMPRESSION: Cardiomegaly with no acute cardiopulmonary abnormality. Electronically signed by: Obed Pickering M.D. 10/21/2016 7:47 AM Dictated Date/Time: 10/21/2016 7:46 AM
[2016-10-21 08:00] VITALS: BP 145/88; PULSE 75; TEMP 36.7; O2SAT 96
[2016-10-21] MEDS ORDERED: ENOXAPARIN 80 MG/0.8 ML SYR SQ SCH (08:00)
[2016-10-21] MEDS ORDERED: MULTIVITAMIN TAB PO SCH (09:00)
[2016-10-21] MEDS ORDERED: CLOPIDOGREL BISULFATE 75 MG TAB PO SCH (09:00)
[2016-10-21] MEDS ORDERED: METOPROLOL TARTRATE 50 MG TAB PO SCH (09:00)
[2016-10-21] MEDS ORDERED: NON-FORMULARY MEDICATION (Coenzyme Q10 (Ubidecarenone) (Coq10) 100 MG) PO SCH (09:00)
[2016-10-21] MEDS ORDERED: FoLIC ACID TAB 400 MCG TAB PO SCH (09:00)
[2016-10-21] MEDS ORDERED: CHOLECALCIFEROL 1000 INTER.UNIT TAB PO SCH (09:00)
[2016-10-21] MEDS ORDERED: ASPIRIN 81 MG ECTAB PO SCH (09:00)
[2016-10-21] MEDS ORDERED: OMEGA-3 (PURIFIED FISH OIL) 1 GM CAP PO SCH (09:00)
[2016-10-21] MEDS ORDERED: ATORVASTATIN 40 MG TAB PO SCH (09:00)
[2016-10-21] MEDS ORDERED: METOPROLOL TARTRATE 25 MG TAB PO SCH (09:00)
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
[2016-10-21] MEDS ORDERED: METOPROLOL TARTRATE 50 MG TAB PO ONE (09:41)
--- NOTE | 2016-10-21 11:25 | ECHOCARDIOGRAM REPORT ---
*NOTICE TO RECEIVING [employer] This information is strictly Confidential and protected under [place] law. [place] law prohibits you from making any further disclosure of this information unless further disclosure is expressly permitted by the written consent of the person to whom it pertains or is authorized by law. A general authorization for the release of medical or other information is not sufficient for this purpose. Hospital accepts no responsibility if the information is made available to any other person, INCLUDING THE PATIENT. Interpretation Summary * Name: ANNA BEY Study Date: 10/21/2016 06:51 AM BP: 178/128 mmHg * Patient Location: .MSICU\S\E106\S\1 HR: 73 * : 1955 (M/d/yyy) Gender: Male Height: 68 in * Age: 61 yrs Ethnicity: [place] Weight: 175 lb * Ordering Physician: Kevon Kramer * Referring Physician: Self, Referred Performed By: Alex Barbosa RDCS * * Reason For Study: Palpitations, S/P CABG x2 (08/28/2016) * BSA: 1.9 m2 * -- Conclusions -- * 1. Normal LV size. Mild concentric LVH with basal septal thickening. * 2. Normal LV systolic function. LVEF 60-65%. Abnormal septal motion consistent with post-op state. * 3. Normal RV size, mild RV dysfunction. * 4. Moderate aortic valve sclerosis without stenosis. * 5. Mild to moderate mitral regurgitation. * 6. Mild pulmonary hypertension. Est PASP 40-45. Normal CVP. * 7. Compared with prior study on 08/24/2016: No significant changes. Procedure Details * A complete two-dimensional transthoracic echocardiogram was performed (2D, M-mode, Doppler and color flow Doppler). * The study was technically difficult. * A contrast injection of Definity was performed to improve assessment of LV function. * Contrast was injected into an intravenous site in the right arm. * One vial of Definity ultrasound contrast was diluted in normal saline to a total volume of 10 ml. A total of '3' ml of solution was administered during imaging. * Lot # [id number] of Definity utilized for procedure. * Expiration date . * The attending nurse who injected the contrast agent was FLEX De León. Left Ventricle * The left ventricle is grossly normal size. * The basal septum is thickened and angulated consistent with sigmoid septum. * Ejection Fraction = 60-65%. * Septal motion is consistent with post-operative state. Right Ventricle * The right ventricle is grossly normal size. * The right ventricular systolic function is mildly reduced. Atria * The left atrium is moderately dilated. * The right atrium is moderately dilated. * No ASD detected; PFO is not assessed. Mitral Valve * There is moderate mitral annular calcification. * Mitral stenosis is absent. * There is mild to moderate mitral regurgitation. Tricuspid Valve * The tricuspid valve is not well visualized, but is grossly normal. * Tricuspid stenosis is absent. * There is mild tricuspid regurgitation. Aortic Valve * Aortic valve sclerosis mild, without significant aortic valvular stenosis. * No hemodynamically significant valvular aortic stenosis. * There is no significant aortic regurgitation. Pulmonic Valve * The pulmonary valve is inadequately visualized, but the Doppler data is adequate for interpretation. * There is no pulmonic valvular stenosis. * Trace pulmonic valvular regurgitation. Great Vessels * The aortic root and proximal ascending aorta are normal sized. Pericardium/Pleural * There is no pericardial effusion. Great Vessels * Normal inferior vena cava size and collapsability with sniff indicates a normal right atrial pressure of 3 mmHg MMode 2D Measurements and Calculations IVSd 1.1 cm IVSs 1.3 cm LVIDd 5.5 cm LVIDs 3.3 cm LVPWd 1.0 cm LVPWs 1.2 cm IVS/LVPW 1.0 FS 39.2 % EDV(Teich) 145.1 ml ESV(Teich) 44.9 ml EF(Teich) 69.1 % EDV(cubed) 162.9 ml ESV(cubed) 36.7 ml EF(cubed) 77.5 % % IVS thick 23.0 % % LVPW thick 12.0 % LV mass(C)d 224.0 grams LV mass(C)dI 116.0 grams/m\S\2 LV mass(C)s 131.3 grams LV mass(C)sI 68.0 grams/m\S\2 SV(Teich) 100.2 ml SI(Teich) 51.9 ml/m\S\2 SV(cubed) 126.2 ml SI(cubed) 65.4 ml/m\S\2 EPSS 0.45 cm Ao root diam 3.2 cm Ao root area 8.2 cm\S\2 ACS 1.3 cm LA dimension 4.6 cm asc Aorta Diam 3.4 cm LA/Ao 1.4 LVOT diam 2.0 cm LVOT area 3.1 cm\S\2 LVAd ap4 32.3 cm\S\2 LVLd ap4 8.4 cm EDV(MOD-sp4) 103.0 ml LVAs ap4 17.8 cm\S\2 LVLs ap4 7.4 cm ESV(MOD-sp4) 34.0 ml EF(MOD-sp4) 67.0 % LVAd ap2 34.1 cm\S\2 LVLd ap2 8.4 cm EDV(MOD-sp2) 112.0 ml LVAs ap2 18.0 cm\S\2 LVLs ap2 7.2 cm ESV(MOD-sp2) 36.0 ml EF(MOD-sp2) 67.9 % SV(MOD-sp4) 69.0 ml SI(MOD-sp4) 35.7 ml/m\S\2 SV(MOD-sp2) 76.0 ml SI(MOD-sp2) 39.4 ml/m\S\2 Doppler Measurements and Calculations MV E max duncan 95.6 cm/sec MV A max duncan 78.4 cm/sec MV E/A 1.2 MV dec time 0.19 sec Ao V2 max 140.6 cm/sec Ao max PG 7.9 mmHg Ao max PG (full) 4.4 mmHg ELLIOTT(V,A) 2.1 cm\S\2 ELLIOTT(V,D) 2.1 cm\S\2 LV V1 max PG 3.5 mmHg LV V1 max 93.8 cm/sec PA V2 max 86.0 cm/sec PA max PG 3.0 mmHg PI end-d duncan 127.7 cm/sec TR max duncan 317.2 cm/sec
[2016-10-21 12:00] VITALS: BP 153/82; PULSE 80; TEMP 36.7; O2SAT 97
[2016-10-21] MEDS ORDERED: METO1TAB68 PO (12:41)
[2016-10-21] MEDS ORDERED: LVNIS80 SQ (12:41)
[2016-10-21] MEDS ORDERED: CMD/25 PO (12:41)
[2016-10-21] MEDS ORDERED: WARFARIN SOD 5 MG TAB PO ONE (12:45)
--- NOTE | 2016-10-21 12:53 | Discharge Instructions ---
Discharge Instructions Date of Service Oct 21, 2016. Admission Reason for Admission: Bigeminy with palpitations, right popliteal DVT, chronic Discharge Discharge Diagnosis / Problem: (1) DVT of popliteal vein (2) Bigeminal rhythm VTE Date & Time Date of VTE Diagnosis: Oct 21, 2016 Time of VTE Diagnosis: 06:30 Discharge Goals Goal(s): Improve function, Improve disease control, Diagnostic testing (INR this week) Activity Recommendations Activity Limitations: resume your previous activity Lifting Limitations: none Exercise/Sports Limitations: as tolerated May Resume Sexual Activity: when tolerated Shower/Bathe: no limitations Driving or Machine Use: no limitations . Instructions / Follow-Up Instructions / Follow-Up Medications: - TOPROL XL: 150mg (1.5 100mg tablet) once daily in the morning starting tomorrow, this replaces the Lopressor you were taking 25mg twice a day. Dr. Ted Paredes wants you to take 50mg of metoprolol (two 25mg tabs) - LOVENOX: 80mg syringe, inject the full dose [facility] a [facility] - COUMADIN: you were given 10mg this afternoon as a loading dose, I want you to start taking 5mg daily in the afternoon tomorrow. I have given you script for 2.5mg tablets so that Dr Montoya can instruct you to increase to 7.5mg or decrease to 2.5mg as needed you need to obtain an INR on Saturday, Saturday and with results to Dr. Montoya I recommend that you call his office tomorrow to tell them that you are now on Coumadin and will be obtaining INR's that he will need to monitor and then give you instructions on dosing FOLLOW UP - please call Dr. Montoya's office tomorrow for appointment later this week to go over new DVT diagnosis and change in metoprolol to treat bigeminy Medication Instructions: * Warfarin is a medicine prescribed to prevent blood clots * Warfarin will thin your blood and help prevent new clots * Take your medications exactly as directed * Never skip a dose. Never take a double dose. If you miss a dose, take it as soon as you remember * It is important for your doctor to monitor your prothrombin time (PT). This is a lab test * Keep your appointment for lab tests Risk of Adverse Drug Reactions and Interactions: * Warfarin increases your risk of bleeding * The food you eat and other medications you take can affect how Warfarin works in your body * Ask your doctor about daily aspirin therapy * It is very important to talk with your doctor about all of the other medicines , antibiotics, vitamins or herbal products that you are taking * All of your medication must be approved by your doctor, including new medicines, as well as medicines you have taken before you started taking Warfarin Diet: * In order for Warfarin to work properly, it is important to keep your intake of Vitamin K as consistent as possible * You should avoid any sudden change in Vitamin K intake * Report any significant changes in your diet or weight to your doctor Call your Primary Care doctor if you experience any of the following: * Swelling or Pain in your leg * Sudden, continuous pain deep in a muscle * Pain that worsens when you are active or when you stand still for a long time * Chest Pain * Sudden Shortness of Breath * Rapid or pounding heart beat * Fainting * Dizziness * Cough with blood or bloody sputum * Sweating more than normal * Bruises * Heavy or uncontrolled bleeding * Blood in your urine, stool or vomit * Black or tarry stools Caring for Your Self at Home: * Avoid sitting, standing or lying down for long periods without moving your legs and feet * When traveling by car, stop to get out and move around at least once every 3 hours * On long airplane, train or bus rides, get up and move around when possible * If you can't get up, wiggle your toes and tighten your calves to keep your blood moving Follow Up: It is important for you to keep your follow up appointments with your medical provider. Current Hospital Diet Patient's current hospital diet: AHA Diet (Heart Healthy) Discharge Diet Recommended Diet: AHA Diet (Heart Healthy) Procedures Procedures Performed: Echocardiogram: normal EF, normal valves Pending Studies Studies pending at discharge: no Laboratory Results Last Resulted CBC 10/20/16 22:30 Red Blood Count 4.57, Mean Corpuscular Volume 92.6, Mean Corpuscular Hemoglobin 31.3, Mean Corpuscular Hemoglobin Concent 33.8, Mean Platelet Volume 9.3, Neutrophils (%) (Auto) 74.0, Lymphocytes (%) (Auto) 18.6, Monocytes (%) (Auto) 4.8, Eosinophils (%) (Auto) 1.7, Basophils (%) (Auto) 0.6, Neutrophils # (Auto) 7.49, Lymphocytes # (Auto) 1.88, Monocytes # (Auto) 0.49, Eosinophils # (Auto) 0.17, Basophils # (Auto) 0.06 Last Resulted BMP 10/20/16 22:30 Medical Emergencies . Who to Call and When: Medical Emergencies: If at any time you feel your situation is an emergency, please call 911 immediately. . Non-Emergent Contact Non-Emergency issues call your: Primary Care Provider Call Non-Emergent contact if: you have any medication questions . . "Provider Documentation" section prepared by Armando Man. VTE Core Measure Inpt VTE Proph given/why not?: Enoxaparin (Lovenox)SQ, SCD's Reason no anticoag overlap I/P: Treatment provided - N/A Reason no anticoag overlap @DC: Treatment provided - N/A [place] Drug Monitoring Program Search Results: no issues identified
--- NOTE | 2016-10-21 13:12 | Discharge Summary ---
Discharge Summary Date of Service Oct 21, 2016. Discharge Summary Admission Date: Oct 21, 2016 at 04:26 Discharge Date: Oct 21, 2016 Discharge Disposition: Home Principal Diagnosis: Bigeminy causing palpitations Problems/Secondary Diagnoses: Right leg DVT, popliteal, chronic CAD with h/o CABG Hyperlipidemia Immunizations: Have You Had Influenza Vaccine: Yes History of Tetanus Vaccine?: Unknown History of Pneumococcal: No History of Hepatitis B Vaccine: No Procedures: Echocardiogram - normal EF, normal valves Right lower extremity doppler - popliteal DVT, trace, likely chronic Consultations: Cardiology Medication Reconciliation New Medications: Metoprolol Succinate (Toprol Xl) 100 Mg Tab 150 MG PO DAILY for 30 Days, #45 TAB 5 Refills 1.5 tablets daily, start on 10/22 Warfarin Sod (Coumadin) 2.5 Mg Tab 2 TAB PO DAILY for 30 Days, #60 TAB 3 Refills Enoxaparin (Lovenox) 80 Mg/0.8 Ml Inj 80 MG SQ Q12H for 5 Days, #10 SYR 0 Refills Continued Medications: Ascorbic Acid (Vitamin C) 100 Mg Chw 100 MG PO DAILY Aspirin (Aspirin Ec) 81 Mg Tab 81 MG PO DAILY Atorvastatin (Lipitor) 40 Mg Tab 40 MG PO DAILY, TAB Bilberry (Vaccinium Myrtillus) (Bilberry) 100 Mg Cap 100 MG PO DAILY Cholecalciferol (Vitamin D) 2,000 Unit Tab 2000 UNITS PO QAM Clopidogrel (Plavix) 75 Mg Tab 75 MG PO DAILY, TAB Coenzyme Q10 (Ubidecarenone) (Coq10) 100 Mg Cap 100 MG PO QAM Epinephrine (Epipen 2-Armin) 0.3 Mg Inj 1 DOSE INJ DIRECTED PRN for ALLERGIC REACTION Fexofenadine Hcl (Hellen Allergy) 180 Mg Tab 180 MG PO DAILY PRN for ALLERGIC REACTION, TAB Fish Oil ([place]-3) 1 Ea Cap 1200 MG PO QAM, CAP Folic Acid (Folic Acid) 800 Mcg Tab 800 MCG PO DAILY Multivitamin (Multivitamin) Tab 1 TAB PO DAILY, TAB Pomegranate (Punica Granatum) (Pomegranate) 250 Mg Cap 250 MG PO DAILY Turmeric (Curcuma Longa) (Turmeric) 500 Mg Tab 500 MG PO DAILY Discontinued Medications: Metoprolol Tartrate (Lopressor) (Lopressor) 25 Mg Tab 25 MG PO BID, TAB Discharge Exam Patient feeling well, just c/o being fatigued since he was up all night. No further palpitations. On the monitor his bigeminy has resolved. Appreciate recommendations from Dr. Jean. Discussed the right leg DVT, even though it is small and chronic, technically should be treated for 3 months. Initially discussed using Xarelto due to ease of use but given his history of SAH would not want to give something that could not be reversed. Discussed going home on Lovenox and Coumadin, he agrees. See details below. Review of Systems: Constitutional: No chills, No fatigue, No fever, No problem reported, No sweats, No weakness, No weight loss Eyes: No diplopia, No discharge, No eye pain, No problem reported, No redness, No worsening of vision ENT: No dental problems, No hearing loss, No nasal symptoms, No problem reported, No sore throat, No tinnitus, No trouble swallowing, No unusual epistaxis Respiratory: No cough, No dyspnea at rest, No dyspnea on exertion, No hemoptysis, No problem reported, No shortness of breath, No sputum, No wheezing Cardiovascular: + palpitations (resolved), No PND, No chest pain, No claudication, No edema, No orthopnea, No problem reported Abdomen: No GI bleeding, No constipation, No diarrhea, No nausea, No pain, No problem reported, No vomiting Musculoskeletal: No calf pain, No joint pain, No muscle pain, No problem reported, No swelling Genitourinary - Male: No dysuria, No hematuria, No urinary frequency, No urinary urgency Neurologic: No balance problems, No memory loss, No numbness/tingling, No paralysis, No problem reported, No vertigo, No weakness Psychiatric: No anhedonism, No anxiety, No depression symptoms, No insomnia , No problem reported, No substance abuse Endocrine: No excessive thirst, No excessive urination, No fatigue, No problem reported Hematologic / Lymphatic: No abnormal bleeding/bruising, No clotting problems , No night sweats, No problem reported, No swollen lymph nodes Integumentary: No bleeding, No color change, No itch, No new/changing skin lesions, No problem reported, No rash Physical Exam: General Appearance: WD/WN, no apparent distress Eyes: normal inspection, EOMI, sclerae normal ENT: normal ENT inspection, hearing grossly normal, pharynx normal Neck: supple, no adenopathy, no JVD, trachea midline Respiratory/Chest: chest non-tender, lungs clear, normal breath sounds, no respiratory distress, no accessory muscle use Cardiovascular: regular rate, rhythm (occasional irregular beat, PVC), no edema, no gallop, no JVD, no murmur, normal peripheral pulses Abdomen / GI: normal bowel sounds, non tender, soft, no organomegaly Extremities: normal inspection, no calf tenderness, normal capillary refill , no pedal edema, normal range of motion, pelvis stable, + pertinent finding ( right leg slightly larger than left, non-tender, skin not tense) Neurologic/Psychiatric: carver and checkerer specials II-XII nml as tested, no motor/sensory deficits , alert, normal mood/affect, normal reflexes, oriented x 3 Skin: normal color, warm/dry, no rash Lymphatic: no adenopathy Hospital Course 61 yo male with recent CABG for two vessel CAD, performed in [place], was discharged after CABG on Amiodarone (for paroxysmal atrial fibrillation post op ) and metoprolol 25mg BID. Experienced a lot of itching with Amiodarone and it was discontinued two weeks ago. Patient was doing well, no chest pain or pressure. Last night he developed palpitations and he was concerned that he may have developed atrial fibrillation again so he came to the ED for evaluation. He was found to be in bigeminy and he was given Lopressor 5mg IV that slowed HR and also resolved the bigeminy. This morning he was feeling well , just tired. Also of importance, his right leg was larger than his left (had saphenous vein removed on right for CABG) but he had a venous doppler. Showed a trace amount of thrombus in popliteal vein, likely chronic. When pressed, he denies any pain in right calf or behind knee currently, but he did experience some pain a few weeks ago. A CTA of the chest was negative for PE. He was started on Lovenox. - Palpitations due to Bigeminy: bigeminy largely resolved, still with occasional PVC's appreciate cardiology consult, the PVC's are right sided, similar to those seen on EKG prior to his CABG Dr. Jean recommends changing beta ольга to Toprol 150mg daily starting tomorrow AM the PVC's and bigeminy were probably suppressed while on Amiodarone recently follow up with cardiology - Right popliteal DVT, chronic: this would be considered a provoked DVT since he had surgery and vein harvesting from right leg Lovenox 80mg q12 x 5 days for bridge, started on Coumadin, received 10mg on prior to discharge prescribed 5mg daily starting tomorrow ordered INR daily starting 10/[address] Montoya his PCP follow up with Dr. Montoya at the end of the week would only treat for 3 months since this was provoked due to surgery - CAD s/p CABG: continue aspirin, Plavix and statin, no chest pain or pressure - h/o subarachnoid hemorrhage: years ago, associated with uncontrolled hypertension had numerous angiograms but could not find an aneurysm or vascular defect will use Coumadin instead of Xarelto for DVT due to this history since Coumadin could be reversed d/c home with PCP follow up Total Time Spent: Greater than 30 minutes This includes examination of the patient, discharge planning, medication reconciliation, and communication with other providers. Discharge Instructions Please refer to the electronic Patient Visit Report (Discharge Instructions) for additional information. Follow-Up Dr. Montoya later this week Dr. Moyer as previously scheduled Additional Copies To Valentino Montoya D.O.Int.Med.; Octavio Moyer M.D.
[2016-10-21 14:24] VITALS: BP 153/82; PULSE 80; TEMP 36.7; O2SAT 97
[2016-11-01] MEDS ORDERED: LISI5TAB PO (11:45)
[2016-11-06] MEDS ORDERED: WARF2.5T8 PO (12:34)
[2016-11-14] MEDS ORDERED: WARF2.5T8 PO ×2 (11:40)
[2017-01-11] MEDS ORDERED: METO1TAB69 PO (12:59)
== END 2016-10-21 15:30 | disposition home or self-care (01) | DRG 309 ==
LOC: ENRESERVTM → ENRESERVDT → C.EDB 22:18 → C.MSICU 10-21 04:26
PROVIDERS: ADMIT Hospitalist; ATTEND Internal Medicine
DX: I49.3 Ventricular premature depolarization (principal); I82.531 Chronic embolism and thrombosis of right popliteal vein; E78.5 Hyperlipidemia, unspecified; I10 Essential (primary) hypertension; I25.10 Atherosclerotic heart disease of native coronary artery without angina pectoris; E78.00 Pure hypercholesterolemia, unspecified; E55.9 Vitamin D deficiency, unspecified; Z95.1 Presence of aortocoronary bypass graft; Z79.02 Long term (current) use of antithrombotics/antiplatelets; Z79.82 Long term (current) use of aspirin; Z79.899 Other long term (current) drug therapy

== ENCOUNTER 2016-12-14 14:11 | Emergency (ER) | payer OTHER ==
[~2016-12-14] VITALS: Ht 177.8 cm; Wt 85.0 kg
[~2016-12-14 14:11] MED LIST changes: -ASPEC81 PO; +ASPI81TA28 PO; -BILB1CAP PO; +LISI5TAB PO; +METO-479 PO; -METO25TA56 PO; -OMEG10007 PO; -POME250C2 PO; -TURM500T PO; +WARF2.5T8 PO
[2016-12-14 14:19] VITALS: BP 188/109; TEMP 36.7; Ht 177.8 cm; Wt 85.0 kg
[2016-12-14] MEDS ORDERED: LISI-461 PO (14:38)
[2016-12-14 15:07] LABS: BASO % 0.6 %; BASO ABS # 0.04 K/uL (0-0.2); COMPLETE YES; EOS % 5.7 %; HEMATOCRIT 43.4 % (42-52); IG% 0.1 %; LYMPH % 24.9 %; LYMPH ABS # 1.67 K/uL (1.2-3.4); MEAN CELL VOLUME 92.3 fL (80-100); MEAN CORPUSCULAR HEMOGLOBIN 31.3 pg (25-34); MEAN CORPUSCULAR HGB CONC 33.9 g/dl (32-36); MEAN PLATELET VOLUME 9.1 fL (7.4-10.4); MONO % 7.6 %; NEUT % 61.1 %; PLATELET COUNT 241 K/uL (130-400); WHITE BLOOD COUNT 6.71 K/uL (4.8-10.8)
--- NOTE | 2016-12-14 15:13 | DIAGNOSTIC IMAGING REPORT ---
RIGHT HAND MIN 3 VIEWS ROUTINE CLINICAL HISTORY: Right hand pain and swelling. No recent trauma. COMPARISON: None FINDINGS: Alignment of the right hand is anatomic. There is no fracture or suspicious osseous lesion. No erosions are identified. Joint spaces are preserved. Carpal bones are intact. IMPRESSION: No significant abnormality of the right hand. Electronically signed by: Fei Churchill M.D. 12/14/2016 3:12 PM Dictated Date/Time: 12/14/2016 3:10 PM
[2016-12-14 15:18] LABS: INR 2.7 (0.9-1.1); PROTHROMBIN TIME (PATIENT) 30.3 SECONDS (9.0-12.0)
[2016-12-14 15:48] VITALS: PULSE 89; O2SAT 98
--- NOTE | 2016-12-15 17:41 | EMERGENCY ROOM VISIT NOTE ---
ED Visit Note First contact with patient: 14:22 Chief Complaint: Right hand pain. History of Present Illness: Mr. Naik is a 61-year-old white male who ambulates into the ED complaining of right hand pain. Historically patient reports he recently had a CABG performed and is currently on Coumadin, Plavix and aspirin. He was seen by his primary care provider, Dr. Montoya, for skin bruising yesterday; bruising included the right hand and left upper arm without precipitating trauma. At that time his INR was checked and was 3.7. He was encouraged to hold his Coumadin for a day and if he had worsening bruising or pain to go to the emergency department. He did note today that the bruising on the right hand seemed to be spreading so he came to the ED for further evaluation and care; There is no extension to the left upper arm bruising. Currently patient is complaining of hand pain over the distal portions of the second and third MCP joint. He describes his pain as an achy sensation. He rates his discomfort 2/10. His pain worsens with flexion and extension of the MCP joint and when he makes a tight fist. He has not identified any alleviating factors related to the pain. He has not taken any medications for pain prior to arrival at the hospital. He denies any associated trauma, wrist pain, finger pain, hand weakness/numbness/tingling. Additionally he denies any previous significant injuries or surgeries to this area of his hand. He denies any additional bleeding in other locations of his body and he has not seen any blood in his urine or stools and has had no abnormal bleeding. Review of Systems: As noted above in history of present illness. Past Medical History: (1) Acute coronary syndrome (2) Cardiac dysrhythmia (3) Cervicalgia (4) DVT of popliteal vein (5) Hyperlipidemia (6) Hypertension (7) Subarachnoid hemorrhage Surgical Problems: (1) S/P CABG (coronary artery bypass graft) Current Medications: Medications Dose Route/Sig Max Daily Dose Days Date Category Dose Instructions Zestril (Lisinopril) 10 Mg Tab 10 Mg PO DAILY 12/14/16 Reported Jantoven (Warfarin Sodium) 2.5 Mg Tab 7.5 Mg PO 3XWK 11/14/16 Reported Mon, Wed, Fri Jantoven (Warfarin Sodium) 2.5 Mg Tab 5 Mg PO 4XWK 11/14/16 Reported Toprol Xl (Metoprolol Succinate) 100 Mg Tab 150 Mg PO DAILY 30 10/21/16 Rx 1.5 tablets daily, start on 10/22 Aspirin Ec (Aspirin) 81 Mg Tab 81 Mg PO DAILY 10/20/16 Reported Vitamin C (Ascorbic Acid) 100 Mg Chw 1,000 Mg PO DAILY 10/15/16 Reported Plavix (Clopidogrel Bisulfate) 75 Mg Tab 75 Mg PO DAILY 10/15/16 Reported Lipitor (Atorvastatin Calcium) 40 Mg Tab 40 Mg PO HS 10/15/16 Reported Folic Acid 800 Mcg Tab 800 Mcg PO DAILY 08/23/16 Reported Hellen Allergy (Fexofenadine Hcl) 180 Mg Tab 180 Mg PO DAILY PRN 08/23/16 Reported Multivitamin (Multivitamins) Tab 1 Tab PO DAILY 08/23/16 Reported Vitamin D (Cholecalciferol) 2,000 Unit Tab 2,000 Units PO QAM 12/29/15 Reported Epipen 2-Armin (Epinephrine) 0.3 Mg Inj 1 Dose INJ DIRECTED PRN 12/29/15 Reported Allergies to Medications: Patient denies. Social History: Patient is not currently employed; he feels safe in his home environment; he denies tobacco use. Physical Examination: Vital Signs: Date Time Temp Pulse Resp B/P Pulse Ox O2 Delivery O2 Flow Rate FiO2 12/14/16 15:48 89 18 98 12/14/16 14:19 36.7 91 16 188/109 95 GENERAL: 61-year-old male in no acute distress, nontoxic-appearing, afebrile and hemodynamically stable. NEUROLOGICAL: Awake, alert and oriented to person, place and time. Answering questions appropriately and following commands. SKIN: Warm, dry and pink. As previously noted there is bruising over the palmar aspect of the right hand and over the anterior aspect of the left upper arm. No other oozing was noted over the face, back, abdomen, chest and lower extremities. RIGHT HAND: No gross bony deformity. No tenderness throughout the distal radius /ulna, wrist, the carpals. There is mild tenderness over the distal second and third metacarpals in the area of his ecchymosis but no bony deformity or crepitus. He has full range of motion of the MCP, PIP and DIP joint. Throughout the hand and fingers the skin was warm and pink and capillary refill was brisk. ED Course: Patient is assessed as noted above. Laboratory Testing: Test 12/14/16 14:54 Range/Units White Blood Count 6.71 4.8-10.8 K/uL Red Blood Count 4.70 4.7-6.1 M/uL Hemoglobin 14.7 14.0-18.0 g/dL Hematocrit 43.4 42-52 % Mean Corpuscular Volume 92.3 80-100 fL Mean Corpuscular Hemoglobin 31.3 25-34 pg Mean Corpuscular Hemoglobin Concent 33.9 32-36 g/dl Platelet Count 241 130-400 K/uL Mean Platelet Volume 9.1 7.4-10.4 fL Neutrophils (%) (Auto) 61.1 % Lymphocytes (%) (Auto) 24.9 % Monocytes (%) (Auto) 7.6 % Eosinophils (%) (Auto) 5.7 % Basophils (%) (Auto) 0.6 % Neutrophils # (Auto) 4.10 1.4-6.5 K/uL Lymphocytes # (Auto) 1.67 1.2-3.4 K/uL Monocytes # (Auto) 0.51 0.11-0.59 K/uL Eosinophils # (Auto) 0.38 0-0.5 K/uL Basophils # (Auto) 0.04 0-0.2 K/uL RDW Standard Deviation 49.8 36.4-46.3 fL RDW Coefficient of Variation 14.6 11.5-14.5 % Immature Granulocyte % (Auto) 0.1 % Immature Granulocyte # (Auto) 0.01 0.00-0.02 K/uL Prothrombin Time 30.3 9.0-12.0 SECONDS Prothromb Time International Ratio 2.7 0.9-1.1 Right Hand X-Rays: Was read by myself and the radiologist showing no acute fractures or dislocations. Patient was offered pain medications and refused. Patient was offered splinting and refused. Patient was educated about tonight's findings and instructed on his treatment plan; he verbalizes understanding and agreement with this plan. Clinical Impression: Right hand pain. Right hand contusion. Normalizing INR. Disposition: Patient discharged home in stable condition; prior to departure he was reassessed and subjectively reported he was pain-free. Plan: Comfort measures including rest, ice and acetaminophen were discussed with the patient. Patient was encouraged to follow-up with his PCP and/or his [facility] for care and treatment. Patient was encouraged return the ED for worsening/uncontrolled pain, worsening bruising, hand weakness/numbness/tingling or any new/concerning symptoms.
[2017-01-11] MEDS ORDERED: METO100T44 PO (12:59)
== END 2016-12-14 15:52 | disposition home or self-care (01) ==
LOC: C.EDB 14:13 → C.EDD 15:52
DX: M79.641 Pain in right hand (principal); S60.221A Contusion of right hand, initial encounter; X58.XXXA Exposure to other specified factors, initial encounter; R79.1 Abnormal coagulation profile; S40.022A Contusion of left upper arm, initial encounter; I49.9 Cardiac arrhythmia, unspecified; E78.5 Hyperlipidemia, unspecified; I10 Essential (primary) hypertension; M54.2 Cervicalgia; Z95.1 Presence of aortocoronary bypass graft; Z79.01 Long term (current) use of anticoagulants; Z79.82 Long term (current) use of aspirin; Z86.718 Personal history of other venous thrombosis and embolism

== ENCOUNTER → 2016-12-24 | Outpatient (CLI) | payer OTHER ==
[~2016-12-24] MED LIST changes: -COEN100C7 PO; +LISI-461 PO; -LISI5TAB PO; +METO100T44 PO
[2016-12-24 12:41] LABS: BASO % 0.5 %; BASO ABS # 0.03 K/uL (0-0.2); COMPLETE YES; EOS % 9.6 %; HEMATOCRIT 44.5 % (42-52); IG% 0.2 %; LYMPH % 21.8 %; LYMPH ABS # 1.39 K/uL (1.2-3.4); MEAN CELL VOLUME 94.5 fL (80-100); MEAN CORPUSCULAR HGB CONC 32.8 g/dl (32-36); MONO % 6.4 %; NEUT % 61.5 %; PLATELET COUNT 236 K/uL (130-400); RED BLOOD COUNT 4.71 M/uL (4.7-6.1); WHITE BLOOD COUNT 6.37 K/uL (4.8-10.8)
[2016-12-24 14:59] LABS: ALT/SGPT 42 U/L (12-78); AST/SGOT 24 U/L (15-37); BLOOD UREA NITROGEN 13 mg/dl (7-18); BUN/CREATININE RATIO 18.6 (10-20); CALCIUM 9.1 mg/dl (8.5-10.1); CARBON DIOXIDE 30 mmol/L (21-32); CHLORIDE 104 mmol/L (98-107); CREATININE 0.71 mg/dl (0.60-1.40); GLUCOSE 95 mg/dl (70-99); POTASSIUM 4.5 mmol/L (3.5-5.1); SODIUM 138 mmol/L (136-145)
[2016-12-24 15:05] LABS: ALB/GLOB RATIO 1.1 (0.9-2); ALKALINE PHOSPHATASE 58 U/L (45-117); CHOLESTEROL 186 mg/dl (0-200); CHOLESTEROL/HDL RATIO 2.5; HDL CHOLESTEROL 74 mg/dl; LDL CHOLESTEROL CALCULATED 98 mg/dl; TRIGLYCERIDES 68 mg/dl (0-150); VERY LOW DENSITY LIPOPROT CALC 14 mg/dl
== END | disposition home or self-care (01) ==
LOC: C.LAB 11:59
PROVIDERS: ATTEND Family Medicine
DX: D64.9 Anemia, unspecified (principal); I10 Essential (primary) hypertension; E78.5 Hyperlipidemia, unspecified

== ENCOUNTER → 2017-01-18 | Outpatient (CLI) | payer OTHER ==
[~2017-01-18] MED LIST changes: -METO-479 PO
[2017-01-18 13:32] LABS: MEAN CELL VOLUME 93.5 fL (80-100); MEAN CORPUSCULAR HEMOGLOBIN 30.2 pg (25-34); MEAN CORPUSCULAR HGB CONC 32.3 g/dl (32-36); MEAN PLATELET VOLUME 8.9 fL (7.4-10.4); PLATELET COUNT 276 K/uL (130-400); WHITE BLOOD COUNT 5.96 K/uL (4.8-10.8)
== END | disposition home or self-care (01) ==
LOC: C.LABBC 12:04
PROVIDERS: ATTEND Physician Assistant Medical
DX: R58 Hemorrhage, not elsewhere classified (principal)

== ENCOUNTER → 2017-06-24 | Outpatient (CLI) | payer OTHER ==
[~2017-06-24] MED LIST changes: -WARF2.5T8 PO
[2017-06-24 18:15] LABS: BASO % 0.5 %; BASO ABS # 0.04 K/uL (0-0.2); COMPLETE YES; EOS % 4.5 %; HEMATOCRIT 41.3 % (42-52); IG% 0.1 %; LYMPH % 23.6 %; LYMPH ABS # 2.01 K/uL (1.2-3.4); MEAN CELL VOLUME 100.7 fL (80-100); MEAN CORPUSCULAR HEMOGLOBIN 33.2 pg (25-34); MEAN CORPUSCULAR HGB CONC 32.9 g/dl (32-36); MEAN PLATELET VOLUME 9.3 fL (7.4-10.4); MONO % 7.9 %; NEUT % 63.4 %; PLATELET COUNT 254 K/uL (130-400)
[2017-06-24 18:46] LABS: ALB/GLOB RATIO 1.2 (0.9-2); ALKALINE PHOSPHATASE 58 U/L (45-117); ALT/SGPT 32 U/L (12-78); AST/SGOT 25 U/L (15-37); BLOOD UREA NITROGEN 10 mg/dl (7-18); BUN/CREATININE RATIO 13.6 (10-20); CALCIUM 9.4 mg/dl (8.5-10.1); CARBON DIOXIDE 28 mmol/L (21-32); CHLORIDE 103 mmol/L (98-107); CHOLESTEROL 157 mg/dl (0-200); CREATININE 0.76 mg/dl (0.60-1.40); GLUCOSE 78 mg/dl (70-99); POTASSIUM 4.1 mmol/L (3.5-5.1); SODIUM 139 mmol/L (136-145)
[2017-06-24 18:53] LABS: HDL CHOLESTEROL 77 mg/dl; LDL CHOLESTEROL CALCULATED 64 mg/dl; TRIGLYCERIDES 80 mg/dl (0-150); VERY LOW DENSITY LIPOPROT CALC 16 mg/dl
== END | disposition home or self-care (01) ==
LOC: C.LAB 17:47
PROVIDERS: ATTEND Neuromusculoskeletal Medicine & OMM
DX: Z00.00 Encounter for general adult medical examination without abnormal findings (principal); I10 Essential (primary) hypertension; E78.5 Hyperlipidemia, unspecified; I25.10 Atherosclerotic heart disease of native coronary artery without angina pectoris

== ENCOUNTER → 2017-12-21 | Outpatient (CLI) | payer OTHER ==
[2017-12-21 14:42] LABS: BASO % 0.9 %; BASO ABS # 0.05 K/uL (0-0.2); EOS % 6.6 %; EOS ABS # 0.37 K/uL (0-0.5); HEMATOCRIT 40.9 % (42-52); HEMOGLOBIN 13.8 g/dL (14.0-18.0); IG# 0.01 K/uL (0.00-0.02); LYMPH ABS # 1.85 K/uL (1.2-3.4); MEAN CORPUSCULAR HEMOGLOBIN 32.4 pg (25-34); MEAN CORPUSCULAR HGB CONC 33.7 g/dl (32-36); MEAN PLATELET VOLUME 8.7 fL (7.4-10.4); MONO ABS # 0.39 K/uL (0.11-0.59); NEUT % 52.3 %; NEUT ABS # 2.94 K/uL (1.4-6.5); PLATELET COUNT 225 K/uL (130-400); RED CELL DISTRIBUTION WIDTH SD 44.9 fL (36.4-46.3); WHITE BLOOD COUNT 5.61 K/uL (4.8-10.8)
[2017-12-21 14:55] LABS: ALBUMIN 3.5 gm/dl (3.4-5.0); ALT/SGPT 40 U/L (12-78); AST/SGOT 30 U/L (15-37); BLOOD UREA NITROGEN 10 mg/dl (7-18); CALCIUM 8.5 mg/dl (8.5-10.1); CARBON DIOXIDE 29 mmol/L (21-32); CREATININE 0.77 mg/dl (0.60-1.40); GLUCOSE 89 mg/dl (70-99); SODIUM 137 mmol/L (136-145)
[2017-12-21 14:57] LABS: ALKALINE PHOSPHATASE 59 U/L (45-117); CHOLESTEROL 167 mg/dl (0-200); LDL CHOLESTEROL CALCULATED 60 mg/dl; TOTAL PROTEIN 7.2 gm/dl (6.4-8.2)
== END | disposition home or self-care (01) ==
LOC: C.LAB 14:14
PROVIDERS: ATTEND Neuromusculoskeletal Medicine & OMM
DX: I10 Essential (primary) hypertension (principal); E78.5 Hyperlipidemia, unspecified; E55.9 Vitamin D deficiency, unspecified; I25.10 Atherosclerotic heart disease of native coronary artery without angina pectoris; Z95.1 Presence of aortocoronary bypass graft

== ENCOUNTER → 2018-03-07 | Outpatient (CLI) | payer OTHER ==
--- NOTE | 2018-03-07 15:59 | DIAGNOSTIC IMAGING REPORT ---
R HAND MIN 3 VIEWS ROUTINE CLINICAL HISTORY: L03.113 Cellulitis of hand, possible foreign body COMPARISON: 12/14/2016 DISCUSSION: No fractures or dislocations are visualized. There are no erosive or destructive changes. There are minor degenerative changes present. No radiopaque foreign bodies are visualized. IMPRESSION: 1. No acute fractures 2. Minor degenerative changes 3. No radiopaque foreign bodies identified Electronically signed by: Gino Aguirre M.D. 03/07/2018 3:58 PM Dictated Date/Time: 03/07/2018 3:57 PM
== END | disposition home or self-care (01) ==
LOC: C.RAD 15:19
PROVIDERS: ATTEND Nurse Practitioner Family
DX: L03.113 Cellulitis of right upper limb (principal)

== ENCOUNTER 2022-10-23 23:21 | Inpatient (IN) ==
[2022-10-23] MEDS ORDERED: MECLIZINE HCL 25 MG TAB PO STA (23:37)
[2022-10-23] MEDS ORDERED: ONDANSETRON INJ 2 MG/ML 2 ML VIAL IV STA (23:37)
--- NOTE | 2022-10-23 23:42 | Emergency Department Note ---
History of Present Illness General Chief complaint: Dizziness Stated complaint: HEAD,DIZZINES Time Seen by Provider: 10/23/22 23:29 History of Present Illness 67-year-old male presents emergency department states that he had an onset of dizziness earlier today when he was driving. Patient states he felt dizzy and lightheaded. Patient's had ongoing dizziness he had an evaluation by his primary care physician and ear nose and throat. Patient is not on any current medicine for dizziness. Patient states he does take aspirin. Patient states that he was nauseated earlier. Patient denies slurred speech blurred vision headache neck pain chest pain shortness of breath abdominal pain nausea vomiting or diarrhea. Patient states that he was concerned due to the dizziness. Patient relates that he has had injections into his hips because of his dizziness Home Medications Medication Instructions Recorded Confirmed Type cholecalciferol (vitamin D3) 50 2,000 unit PO QAM ##0 12/29/15 10/24/22 History mcg (2,000 unit) tablet epinephrine 0.3 mg/0.3 mL 1 dose INJ DIRECTED PRN BEE 12/29/15 10/24/22 History injection, auto-injector (EpiPen) STING ##0 fexofenadine 180 mg tablet 180 mg PO DAILY PRN Allergy 08/23/16 10/24/22 History (Hellen Allergy) Symptoms #0 tabs [id number] 200 mcg-vit K 100 1 tab PO DAILY #0 tabs 08/23/16 10/24/22 History mcg-lycop 500 [id number] capsule (Daily Multivitamin) ascorbic acid (vitamin C) 1,000 mg 1 tab PO QAM ##0 10/15/16 10/24/22 History tablet (Vitamin C) aspirin 81 mg tablet,delayed 81 mg PO QAM ##0 10/20/16 10/24/22 History release (Elvis Low Dose Aspirin) fluticasone propionate 50 1 spray intranasal BID PRN Allergy 04/04/18 10/24/22 History mcg/actuation nasal Symptoms spray,suspension (Flonase Allergy Relief) coenzyme Q10 100 mg capsule 200 mg PO DAILY 10/02/19 10/24/22 History (CoQ-10) oregano oil 2 drp PO DAILY 12/15/20 10/24/22 History betamethasone dipropionate 0.05 % 1 applic topical BID PRN Skin 06/19/21 10/24/22 History topical ointment Irritation pomegranate fruit extract 250 mg 250 mg PO DAILY 06/19/21 10/24/22 History capsule rosuvastatin 40 mg tablet 40 mg PO DAILY #90 tabs 08/21/22 10/24/22 Rx ondansetron 4 mg disintegrating 4 mg PO Q8H PRN nausea and 09/06/22 10/24/22 Rx tablet vomiting #30 tabs tramadol 50 mg tablet 50 mg PO TID PRN pain #20 tabs 09/06/22 10/24/22 Rx metoprolol succinate 200 mg 200 mg PO QAM #90 tabs 10/22/22 10/24/22 Rx tablet,extended release 24 hr lisinopril 40 mg tablet 20 mg PO DAILY 10/24/22 10/24/22 History omega 2-iwj-ntx-fish oil 1,000 mg 1 cap PO DAILY 10/24/22 10/24/22 History (120 mg-180 mg) capsule (Fish Oil) turmeric 400 mg capsule 400 mg PO DAILY 10/24/22 10/24/22 History zinc gluconate 50 mg tablet 50 mg PO DAILY 10/24/22 10/24/22 History Allergies Allergy/AdvReac Type Severity Reaction Status Date / Time No Known Allergies Allergy Verified 10/24/22 00:01 Past Med/Surg History Medical History Acute coronary syndrome Allergic rhinitis Atrial fibrillation WITH PVCS, ONLY HAD AFTER CABG Basal cell adenocarcinoma left eye- MOHS procedure Cancer BASAL CELL OVER L EYE--MOHS PROCEDURE AT [facility] Cardiac dysrhythmia Cervicalgia Coronary artery disease Deep vein thrombosis R KNEE 10/2016 DVT of popliteal vein Family history of diabetes mellitus MOTHER Family history of reaction to anesthesia 2 MATERNAL AUNTS "WOKE UP DURING SURGERY" Herniated cervical disc SURGERY ON C3 IN 1999 History of colon polyps HTN (hypertension) Hx of angiography brain x3 Hx of subarachnoid hemorrhage Hyperlipidemia Hypertension Hypertension Pneumonia LAST 2009 Psoriasis SAH (subarachnoid hemorrhage) 2004 Skin lesion Symptomatic PVCs Vitamin D deficiency Surgical History Abnormal magnetic resonance angiography of brain X3 AFTER SUBARACHNOID HEMORRHAGE 2004 @ [facility] History of cardiac cath 08/2016--NO STENTS History of cervical discectomy C3 History of colonoscopy History of esophagogastroduodenoscopy (EGD) History of laminectomy L4-5 IN 1999 History of open reduction and internal fixation (ORIF) procedure LEFT TIB/FIB SCREWS/PINS History of tonsillectomy T&A CHILD History of tooth extraction Hx of biopsy thyroid-benign Hx of CABG x2 Hx of lumbar discectomy S/P CABG (coronary artery bypass graft) CABG X2 VESSEL @ [facility] 08/28/16 S/P Mohs surgery for basal cell carcinoma S/P thyroid biopsy (BENIGN) 2009 Family History Aunt Breast cancer Aunt No problems noted. 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"); Hx Alcohol Use: Yes Alcohol type: beer and wine Alcohol Intake Frequency: Monthly or Less Hx Substance Use: No Preferred Language: Mozambican Communication Ability: Effective Visual Impairment: No Limitations Hearing Ability: Normal Colorectal Surgeon Required: No Beliefs That Will Affect Care: None marital status: Current Living Situation: Alone Current Living Situation Comment: LIVES WITH DAUGHTER current occupational status: retired How many Children do You have: 3 Feels Safe at Home: Yes Childhood Exposure to Second-Hand Smoke: Yes caffeine: Yes during the past year weight has: remained stable Dental Care, Regularly: Yes Physical Activity Frequency: Daily Seatbelt Use: sometimes Sunscreen Use: Yes Assistive Devices: Cane Review of Systems A total of 10 systems reviewed and were otherwise negative Constitutional: no fever Respiratory: no cough Cardiovascular: no chest pain Neurologic: + dizziness Physical Exam Vital Signs Vital Signs - 24 hr 10/23/22 23:26 10/23/22 23:21 10/23/22 23:37 Temperature 36.5 C Temperature Source Temporal Artery Scan Pulse Rate 76 77 Pulse Rate [Apical] 77 Respiratory Rate 18 18 18 Respiratory Effort / Characteristics Non-Labored Spontaneous Non-Labored Respiratory Depth Normal Normal Respiratory Pattern Regular Regular Blood Pressure 207/93 H Blood Pressure [Right Arm] 191/115 H Blood Pressure Mean 131 Blood Pressure Mean [Right Arm] 140 Blood Pressure Position Sitting Pulse Oximetry 97 99 99 Oxygen Delivery Method Room Air Room Air Room Air Sepsis Recent Fever Within 48 Hours No Sepsis New/Unexplained Change in Mental Status N/A Sepsis Action Taken by Nursing No Action Required 10/23/22 23:45 10/23/22 23:42 10/23/22 23:45 Temperature Temperature Source Pulse Rate 75 77 73 Pulse Rate [Apical] Respiratory Rate 16 17 Respiratory Effort / Characteristics Respiratory Depth Respiratory Pattern Blood Pressure Blood Pressure [Right Arm] Blood Pressure Mean Blood Pressure Mean [Right Arm] Blood Pressure Position Pulse Oximetry 96 96 Oxygen Delivery Method Room Air Room Air Sepsis Recent Fever Within 48 Hours Sepsis New/Unexplained Change in Mental Status Sepsis Action Taken by Nursing 10/23/22 23:47 10/24/22 00:10 10/24/22 00:15 Temperature Temperature Source Pulse Rate 76 74 79 Pulse Rate [Apical] Respiratory Rate 18 16 22 Respiratory Effort / Characteristics Respiratory Depth Respiratory Pattern Blood Pressure 175/107 H 175/103 H Blood Pressure [Right Arm] Blood Pressure Mean 129 127 Blood Pressure Mean [Right Arm] Blood Pressure Position Pulse Oximetry 97 94 Oxygen Delivery Method Room Air Room Air Sepsis Recent Fever Within 48 Hours Sepsis New/Unexplained Change in Mental Status Sepsis Action Taken by Nursing 10/24/22 00:30 10/24/22 00:31 10/24/22 00:45 Temperature Temperature Source Pulse Rate 76 77 77 Pulse Rate [Apical] Respiratory Rate 19 19 14 Respiratory Effort / Characteristics Respiratory Depth Respiratory Pattern Blood Pressure 172/95 H 136/88 Blood Pressure [Right Arm] Blood Pressure Mean 120 104 Blood Pressure Mean [Right Arm] Blood Pressure Position Pulse Oximetry 98 96 98 Oxygen Delivery Method Room Air Room Air Room Air Sepsis Recent Fever Within 48 Hours Sepsis New/Unexplained Change in Mental Status Sepsis Action Taken by Nursing 10/24/22 01:00 10/24/22 01:15 10/24/22 01:30 Temperature Temperature Source Pulse Rate 63 73 75 Pulse Rate [Apical] Respiratory Rate 13 18 13 Respiratory Effort / Characteristics Respiratory Depth Respiratory Pattern Blood Pressure 161/88 H 154/99 H Blood Pressure [Right Arm] Blood Pressure Mean 112 117 Blood Pressure Mean [Right Arm] Blood Pressure Position Pulse Oximetry 98 Oxygen Delivery Method Sepsis Recent Fever Within 48 Hours Sepsis New/Unexplained Change in Mental Status Sepsis Action Taken by Nursing 10/24/22 01:30 10/24/22 01:45 10/24/22 02:15 Temperature Temperature Source Pulse Rate 72 70 Pulse Rate [Apical] Respiratory Rate 18 17 Respiratory Effort / Characteristics Respiratory Depth Respiratory Pattern Blood Pressure 154/99 H 153/90 H 140/88 Blood Pressure [Right Arm] Blood Pressure Mean 117 111 105 Blood Pressure Mean [Right Arm] Blood Pressure Position Pulse Oximetry 97 Oxygen Delivery Method Room Air Sepsis Recent Fever Within 48 Hours Sepsis New/Unexplained Change in Mental Status Sepsis Action Taken by Nursing 10/24/22 02:30 10/24/22 02:32 10/24/22 02:45 Temperature Temperature Source Pulse Rate 75 74 75 Pulse Rate [Apical] Respiratory Rate 13 16 18 Respiratory Effort / Characteristics Respiratory Depth Respiratory Pattern Blood Pressure 151/80 H 148/89 H Blood Pressure [Right Arm] Blood Pressure Mean 103 108 Blood Pressure Mean [Right Arm] Blood Pressure Position Pulse Oximetry 93 98 98 Oxygen Delivery Method Room Air Room Air Room Air Sepsis Recent Fever Within 48 Hours Sepsis New/Unexplained Change in Mental Status Sepsis Action Taken by Nursing 10/24/22 03:00 10/24/22 03:15 10/24/22 03:49 Temperature Temperature Source Pulse Rate 73 76 75 Pulse Rate [Apical] Respiratory Rate 15 17 Respiratory Effort / Characteristics Respiratory Depth Respiratory Pattern Blood Pressure 155/93 H Blood Pressure [Right Arm] Blood Pressure Mean 113 Blood Pressure Mean [Right Arm] Blood Pressure Position Pulse Oximetry 97 98 Oxygen Delivery Method Room Air Room Air Sepsis Recent Fever Within 48 Hours Sepsis New/Unexplained Change in Mental Status Sepsis Action Taken by Nursing GENERAL: Patient is awake alert in no acute distress patient is resting comfortably and showing no signs of anxiety EYES: The conjunctivae are clear. The pupils are round and reactive. EARS, NOSE, MOUTH AND THROAT: The nose is without any evidence of any deformity NECK: The neck is nontender and supple. RESPIRATORY: Normal respiratory effort is noted there is no evidence of wheezing rhonchi or rales CARDIOVASCULAR: Regular rate and rhythm noted there no murmurs rubs or gallops normal S1 normal S2. GASTROINTESTINAL: The abdomen is soft. Abdomen is nontender. BACK: No midline tenderness or or step-off noted range of motion in flexion extension as well as rotation no signs of muscle spasm noted MUSCULOSKELETAL/EXTREMITIES: There is no evidence of gross deformity full range of motion is noted in the hips and shoulders. SKIN: There is no obvious evidence of any rash. There are no petechiae, pallor or cyanosis noted. NEUROLOGIC: Patient is awake alert and oriented x3 strength is symmetric; NIH 0; GCS 15; no nystagmus Course Reevaluation(s) Reevaluation #1: Patient on repeat examination feels much improved. He has no dizziness he is ambulatory to the bathroom. He is in no distress he complains of no chest pain and no shortness of breath no nausea no vomiting no headache. Time: 02:29 Reevaluation #2: Discussed the evaluation with the patient will follow-up with his primary care physician and his specialist for further evaluation Time: :29 Reevaluation #3: Patient on reexamination initially was supposed to give me a urine sample. Patient states that he feels nauseated he feels like he is unsteady on his gait he is using a wooden cane to walk to the bathroom and he states that his gait is off. Patient states that this is new Time: 04:02 Administered Medications Discontinued Medications Meclizine HCl (Meclizine Hcl 25 Mg Tab) 25 mg PO NOW STA Stop: 10/23/22 23:38 Last Admin: 10/24/22 00:07 Dose: 25 mg Documented By: GENE Ondansetron HCl (Ondansetron Inj 2 Mg/Ml 2 Ml Vial) 4 mg IV NOW STA Stop: 10/23/22 23:38 Last Admin: 10/24/22 00:07 Dose: 4 mg Documented By: GENE Medical Decision Making Medical Records Attestation: I reviewed the patient's medical records. Home Medications Current Medication List: was personally reviewed by me Laboratory Data Attestation: I reviewed the patient's lab results. Patient had a troponin initially of 22 and a repeat that was 24 10/23/22 23:47 10/23/22 23:47 Lab Results 10/23/22 10/23/22 10/23/22 Range/Units 23:47 23:47 23:47 WBC 8.59 (4.8-10.8) K/ul RBC 4.16 L (4.70-6.10) M/uL Hgb 13.5 L (14.0-18.0) g/dl Hct 40.0 L (42.0-52.0) % MCV 96.2 (80.0-100.0) fL MCH 32.5 (25.0-34.0) pg MCHC 33.8 (32.0-36.0) g/dL RDW Std Deviation 47.3 H (36.4-46.3) fL RDW Coeff of [place] 13.5 (11.5-14.5) % Plt Count 287 (130-400) K/uL MPV 9.3 L (9.4-12.4) fL Immature Gran % (Auto) 0.5 % Neut % (Auto) 79.9 % Lymph % (Auto) 13.0 % [place] % (Auto) 6.2 % Eos % (Auto) 0.1 % Baso % (Auto) 0.3 % Neut # (Auto) 6.86 H (1.40-6.50) K/uL Lymph # (Auto) 1.12 L (1.2-3.4) K/uL [place] # (Auto) 0.53 (0.11-0.59) K/uL Eos # (Auto) 0.01 (0-0.50) K/uL Baso # (Auto) 0.03 (0-0.2) K/uL Immature Gran # (Auto) 0.04 (0.01-0.20) K/uL PT 10.7 (9.0-12.0) Seconds INR 1.0 (0.9-1.1) APTT 29.9 (21.0-31.0) Seconds PTT Ratio 1.1 Sodium 136 (136-145) mmol/L Potassium 4.3 (3.5-5.1) mmol/L Chloride 102 (98-107) mmol/L Carbon Dioxide 27 (21-32) mmol/L Anion Gap 7 (3-11) BUN 8 (6-23) mg/dl Creatinine 0.61 (0.6-1.4) mg/dl Est Cr Clr Drug Dosing 110.6 ml/min Est GFR ( Amer) 118.1 ml/min Est GFR (Non-Af Amer) 101.9 ml/min BUN/Creatinine Ratio 13.1 (10-20) Glucose 116 H (70-99(Fasting)) mg/dl Calcium 9.5 (8.5-10.1) mg/dl Total Bilirubin 0.8 (0.2-1.0) mg/dl AST 21 (13-39) U/L ALT 23 (7-52) U/L Alkaline Phosphatase 55 (34-104) U/L Troponin I High Sens 22.5 H (0-20) pg/ml Total Protein 7.2 (6.0-8.3) gm/dl Albumin 4.4 (3.4-5.0) gm/dl Globulin 2.8 (2.5-4.0) gm/dl Albumin/Globulin Ratio 1.6 (0.9-2) 10/24/22 Range/Units 01:15 WBC (4.8-10.8) K/ul RBC (4.70-6.10) M/uL Hgb (14.0-18.0) g/dl Hct (42.0-52.0) % MCV (80.0-100.0) fL MCH (25.0-34.0) pg MCHC (32.0-36.0) g/dL RDW Std Deviation (36.4-46.3) fL RDW Coeff of [place] (11.5-14.5) % Plt Count (130-400) K/uL MPV (9.4-12.4) fL Immature Gran % (Auto) % Neut % (Auto) % Lymph % (Auto) % [place] % (Auto) % Eos % (Auto) % Baso % (Auto) % Neut # (Auto) (1.40-6.50) K/uL Lymph # (Auto) (1.2-3.4) K/uL [place] # (Auto) (0.11-0.59) K/uL Eos # (Auto) (0-0.50) K/uL Baso # (Auto) (0-0.2) K/uL Immature Gran # (Auto) (0.01-0.20) K/uL PT (9.0-12.0) Seconds INR (0.9-1.1) APTT (21.0-31.0) Seconds PTT Ratio Sodium (136-145) mmol/L Potassium (3.5-5.1) mmol/L Chloride (98-107) mmol/L Carbon Dioxide (21-32) mmol/L Anion Gap (3-11) BUN (6-23) mg/dl Creatinine (0.6-1.4) mg/dl Est Cr Clr Drug Dosing ml/min Est GFR ( Amer) ml/min Est GFR (Non-Af Amer) ml/min BUN/Creatinine Ratio (10-20) Glucose (70-99(Fasting)) mg/dl Calcium (8.5-10.1) mg/dl Total Bilirubin (0.2-1.0) mg/dl AST (13-39) U/L ALT (7-52) U/L Alkaline Phosphatase (34-104) U/L Troponin I High Sens 24.2 H (0-20) pg/ml Total Protein (6.0-8.3) gm/dl Albumin (3.4-5.0) gm/dl Globulin (2.5-4.0) gm/dl Albumin/Globulin Ratio (0.9-2) Imaging Data Attestation: I personally reviewed and interpreted this imaging study as follows: My Impression: CT of the brain interpreted by me negative for intracranial hemorrhage Radiologist's Impression: Head CT 10/23/22 23:37 Exam(s): CT HEAD Without Contrast EXAM: CT Head Without Intravenous Contrast CLINICAL HISTORY: Reason for exam: dizziness. TECHNIQUE: Axial computed tomography images of the head/brain without intravenous contrast. Automated exposure control was utilized for the study. A dose lowering technique was utilized adhering to the principles of ALARA. COMPARISON: No relevant prior studies available. FINDINGS: Brain: Unremarkable for age. No acute intracranial hemorrhage, edema or abnormal mass-effect. Ventricles: Unremarkable. No ventriculomegaly. Bones/joints: Unremarkable. No acute fracture. Soft tissues: Unremarkable. Sinuses: Unremarkable as visualized. No acute sinusitis. Mastoid air cells: Unremarkable as visualized. No mastoid effusion. IMPRESSION: No acute or focal intracranial abnormality. Electronically signed by: Raoul Aguilar MD 10/24/22 00:12 AM ECG Data Attestation: I personally reviewed and interpreted this ECG as follows: Additional Comments: EKG interpreted by me sinus rhythm rate of 71 normal intervals normal axis no obvious ST segment elevation or depression, occasional PVCs Telemetry was ordered by me, interpreted as normal sinus rhythm rate of 71 MDM Narrative Medical decision making differential diagnosis includes vertigo, cardiac dysrhythmia, electrolyte abnormality, anemia, anxiety, TIA Plan is to check labs, EKG, CT brain External medical records were reviewed by me Patient's CAT scan was negative patient's lab work showed initial troponin of 22 and repeat of 24 however I do not suspect following algorithm that this patient has acute coronary syndrome he has no current chest pain no shortness of breath no dizziness no nausea no cardiac dysrhythmia a nonischemic EKG. Patient continues to have dizziness initially was going to be discharged however when he walks to the bathroom he is unsteady and is using a cane. Impression & Plan Dizziness Discharge Plan Visit Data Chief Complaint: Dizziness Stated Complaint: HEAD,DIZZINES ED Provider: Dami Connell Discharge Problem: Dizziness Patient Disposition: Admitted As Inpatient Discharge Instructions Kimberley/Other Patient Handouts: ED Dizziness, Uncertain Cause Forms Stand Alone Forms: [facility], [facility] Emergency Department, Important Visit Information Prescriptions Prescriptions: No Action epinephrine [EpiPen] 0.3 mg/0.3 mL Auto-Injector 1 dose INJ DIRECTED PRN (Reason: BEE STING) Qty: 0 cholecalciferol (vitamin D3) 2,000 unit Tablet 2,000 unit PO QAM Qty: 0 Daily Multivitamin 200-100-500 mcg Capsule 1 tab PO DAILY Qty: 0 fexofenadine [Hellen Allergy] 180 mg Tablet 180 mg PO DAILY PRN (Reason: Allergy Symptoms) Qty: 0 ascorbic acid (vitamin C) [Vitamin C] 1,000 mg Tablet 1 tab PO QAM Qty: 0 aspirin [Elvis Low Dose Aspirin] 81 mg Tablet,Delayed Release (Dr/Ec) 81 mg PO QAM Qty: 0 metoprolol succinate 200 mg tablet extended release 24 hr 200 mg PO QAM Qty: 90 3RF rosuvastatin 40 mg tablet 40 mg PO DAILY Qty: 90 3RF betamethasone dipropionate 0.05 % ointment 1 applic topical BID PRN (Reason: Skin Irritation) coenzyme Q10 [CoQ-10] 100 mg capsule 200 mg PO DAILY pomegranate fruit extract 250 mg capsule 250 mg PO DAILY oregano oil 2 drp PO DAILY ondansetron 4 mg tablet,disintegrating 4 mg PO Q8H PRN (Reason: nausea and vomiting) Qty: 30 1RF tramadol 50 mg tablet 50 mg PO TID PRN (Reason: pain) Qty: 20 0RF fluticasone propionate [Flonase Allergy Relief] 50 mcg/actuation [place],Suspension 1 spray INTRANASAL BID PRN (Reason: Allergy Symptoms) zinc gluconate 50 mg Tablet 50 mg PO DAILY omega 3-hcs-plb-fish oil [Fish Oil] 1,000 mg (120 mg-180 mg) Capsule 1 cap PO DAILY turmeric 400 mg Capsule 400 mg PO DAILY lisinopril 40 mg tablet 20 mg PO DAILY Referrals Referrals: Dennis Arroyo DO [Primary Care Provider] -
[2022-10-24 00:06] LABS: Basophils # (auto) 0.03 K/uL (0-0.2); Basophils % (auto) 0.3 %; Eosinophils # (auto) 0.01 K/uL (0-0.50); Eosinophils % (auto) 0.1 %; Hemoglobin 13.5 g/dl (14.0-18.0); Immature Granulocytes # (auto) 0.04 K/uL (0.01-0.20); Immature Granulocytes % (auto) 0.5 %; Lymphocytes # (auto) 1.12 K/uL (1.2-3.4); Mean Corpuscular Hemoglobin 32.5 pg (25.0-34.0); Mean Corpuscular Hgb Conc 33.8 g/dL (32.0-36.0); Mean Corpuscular Volume 96.2 fL (80.0-100.0); Mean Platelet Volume 9.3 fL (9.4-12.4); Monocytes # (auto) 0.53 K/uL (0.11-0.59); Monocytes % (auto) 6.2 %; Neutrophils # (auto) 6.86 K/uL (1.40-6.50); Neutrophils % (auto) 79.9 %; Platelet Count 287 K/uL (130-400); RDW Coefficient of Variation 13.5 % (11.5-14.5); RDW Standard Deviation 47.3 fL (36.4-46.3); Red Blood Count 4.16 M/uL (4.70-6.10); White Blood Count 8.59 K/ul (4.8-10.8)
--- NOTE | 2022-10-24 00:12 | CT Scan Report ---
Exam(s): CT HEAD Without Contrast EXAM: CT Head Without Intravenous Contrast CLINICAL HISTORY: Reason for exam: dizziness. TECHNIQUE: Axial computed tomography images of the head/brain without intravenous contrast. Automated exposure control was utilized for the study. A dose lowering technique was utilized adhering to the principles of ALARA. COMPARISON: No relevant prior studies available. FINDINGS: Brain: Unremarkable for age. No acute intracranial hemorrhage, edema or abnormal mass-effect. Ventricles: Unremarkable. No ventriculomegaly. Bones/joints: Unremarkable. No acute fracture. Soft tissues: Unremarkable. Sinuses: Unremarkable as visualized. No acute sinusitis. Mastoid air cells: Unremarkable as visualized. No mastoid effusion. IMPRESSION: No acute or focal intracranial abnormality. Electronically signed by: Raoul Aguilar MD 10/24/22 00:12 AM
[2022-10-24 00:24] LABS: Albumin Globulin Ratio 1.6 (0.9-2); Albumin Level 4.4 gm/dl (3.4-5.0); BUN Creatinine Ratio 13.1 (10-20); Bilirubin,Total 0.8 mg/dl (0.2-1.0); Calcium 9.5 mg/dl (8.5-10.1); Creatinine Clr Calc Pharmacy 110.6 ml/min; Est GFR (African American) 118.1 ml/min; Est GFR (Non-African American) 101.9 ml/min; Globulin 2.8 gm/dl (2.5-4.0); Potassium 4.3 mmol/L (3.5-5.1); Total Protein 7.2 gm/dl (6.0-8.3)
[2022-10-24 00:31] LABS: Troponin I High Sensitivity 22.5 pg/ml (0-20)
[2022-10-24 00:37] LABS: Partial Thromboplastin Ratio 1.1; Partial Thromboplastin Time 29.9 Seconds (21.0-31.0); Prothrombin Time 10.7 Seconds (9.0-12.0)
[2022-10-24 04:41] LABS: Appearance Urine Clear (Clear); Bilirubin Urine Negative (Negative); Blood Urine Negative (Negative); Color Urine Yellow; Glucose Urine UA Negative (Negative); Ketones Urine Negative (Negative); Leukocyte Esterase Urine Negative (Negative); Nitrite Urine Negative (Negative); Protein Urine Negative (Negative); Specific Gravity Urine 1.007 (1.000-1.030); Urobilinogen Urine Negative (Negative); pH Urine 5.5 (4.5-7.5)
--- NOTE | 2022-10-24 05:10 | History & Physical Report ---
Date of Service October 24, 2022 Assessment & Plan (1) Dizziness: (2) Atrial fibrillation: (3) HLD (hyperlipidemia): (4) Coronary artery disease: (5) Vitamin D deficiency: (6) Hypertension: (7) Carotid artery stenosis, asymptomatic: (8) Degenerative joint disease of left hip: (9) Superior mesenteric artery stenosis: (10) BPH (benign prostatic hyperplasia): (11) Memory impairment: (12) Confusion: Plan Confusion, memory impairment, dizziness, lightheadedness and brain fog- Patient had difficulty communicating exactly what his symptoms were, how long they have been here and what they were associated with CT of head is negative for acute event Patient has had a history of subarachnoid hemorrhage Chemistry profile is normal, CBC is for the most part normal We will add Lyme testing, vitamin B12 level, folic acid level and TSH with follow-up T4 if abnormal We will order MRI brain without contrast We will start thiamine 100 mg p.o. daily, folic acid 1 mg p.o. daily and multivitamin with minerals 1 p.o. daily Continue aspirin 81 mg daily Elevated troponin/CAD/hypertension- Patient had a negative the dobutamine stress echo earlier in the year on 08/21/2022 Continue aspirin 81 mg daily, lisinopril 20 mg daily, metoprolol succinate 24- hour 200 mg daily Troponin of 24.2 is likely a supply demand type II process Hyperlipidemia- Continue rosuvastatin 40 mg daily Chronic pain of left hip- Acetaminophen 650 mg by mouth every 6 hours as needed for mild pain or fever Tramadol 50 mg by mouth 3 times daily as needed for moderate pain Allergy symptoms- Continue fexofenadine as needed and Flonase nasal spray as needed History of Present Illness Chief Complaint: The patient presents to the emergency department with intractable dizziness, lightheadedness and brain fog that he thinks began shortly after receiving an injection to the left hip about 5 weeks ago. Primary Care Provider: Dennis Arroyo DO The patient is a 67-year-old male with a past medical history including atrial fibrillation, hyperlipidemia, allergic rhinitis, CAD, symptomatic PVCs, hypertension, carotid artery stenosis, abdominal aortic ectasia, degenerative joint disease of left hip, rupture of left proximal biceps tendon, left rotator cuff disorder, superior mesenteric artery stenosis, BPH, vitamin D deficiency and history of cervical discectomy. He presents emergency department with concerns regarding dizziness, lightheadedness, brain fog and he reports a number of other somatic symptoms but has difficulty with consistency and explaining exactly what he is feeling. As he is talking he appears to have some problems with organization and memory function. He denies any sick exposures he denies any recent travels. He has a dog as a pet stays outside. He has had intermittent issues with his GI tract, and has been following with gastroenterology, but he relates variable symptoms related to that system today. He has followed with cardiology Dr. Moyer Allergies Allergy/AdvReac Type Severity Reaction Status Date / Time No Known Allergies Allergy Verified 10/24/22 00:01 Home Medications Medication Instructions Recorded Confirmed Type cholecalciferol (vitamin D3) 50 2,000 unit PO QAM ##0 12/29/15 10/24/22 History mcg (2,000 unit) tablet epinephrine 0.3 mg/0.3 mL 1 dose INJ DIRECTED PRN BEE 12/29/15 10/24/22 History injection, auto-injector (EpiPen) STING ##0 fexofenadine 180 mg tablet 180 mg PO DAILY PRN Allergy 08/23/16 10/24/22 History (Hellen Allergy) Symptoms #0 tabs [id number] 200 mcg-vit K 100 1 tab PO DAILY #0 tabs 08/23/16 10/24/22 History mcg-lycop 500 [id number] capsule (Daily Multivitamin) ascorbic acid (vitamin C) 1,000 mg 1 tab PO QAM ##0 10/15/16 10/24/22 History tablet (Vitamin C) aspirin 81 mg tablet,delayed 81 mg PO QAM ##0 10/20/16 10/24/22 History release (Elvis Low Dose Aspirin) fluticasone propionate 50 1 spray intranasal BID PRN Allergy 04/04/18 10/24/22 History mcg/actuation nasal Symptoms spray,suspension (Flonase Allergy Relief) coenzyme Q10 100 mg capsule 200 mg PO DAILY 10/02/19 10/24/22 History (CoQ-10) oregano oil 2 drp PO DAILY 12/15/20 10/24/22 History betamethasone dipropionate 0.05 % 1 applic topical BID PRN Skin 06/19/21 10/24/22 History topical ointment Irritation pomegranate fruit extract 250 mg 250 mg PO DAILY 06/19/21 10/24/22 History capsule rosuvastatin 40 mg tablet 40 mg PO DAILY #90 tabs 08/21/22 10/24/22 Rx ondansetron 4 mg disintegrating 4 mg PO Q8H PRN nausea and 09/06/22 10/24/22 Rx tablet vomiting #30 tabs tramadol 50 mg tablet 50 mg PO TID PRN pain #20 tabs 09/06/22 10/24/22 Rx metoprolol succinate 200 mg 200 mg PO QAM #90 tabs 10/22/22 10/24/22 Rx tablet,extended release 24 hr lisinopril 40 mg tablet 20 mg PO DAILY 10/24/22 10/24/22 History omega 4-fro-zsu-fish oil 1,000 mg 1 cap PO DAILY 10/24/22 10/24/22 History (120 mg-180 mg) capsule (Fish Oil) turmeric 400 mg capsule 400 mg PO DAILY 10/24/22 10/24/22 History zinc gluconate 50 mg tablet 50 mg PO DAILY 10/24/22 10/24/22 History Past Med/Surg History Medical History (Updated 10/24/22 @ 05:22 by Kevon Kramer MD) Acute coronary syndrome Allergic rhinitis Atrial fibrillation WITH PVCS, ONLY HAD AFTER CABG Basal cell adenocarcinoma left eye- MOHS procedure Cancer BASAL CELL OVER L EYE--MOHS PROCEDURE AT [facility] Cardiac dysrhythmia Cervicalgia Coronary artery disease Deep vein thrombosis R KNEE 10/2016 DVT of popliteal vein Family history of diabetes mellitus MOTHER Family history of reaction to anesthesia 2 MATERNAL AUNTS "WOKE UP DURING SURGERY" Herniated cervical disc SURGERY ON C3 IN 1999 History of colon polyps HTN (hypertension) Hx of angiography brain x3 Hx of subarachnoid hemorrhage Hyperlipidemia Hypertension Hypertension Pneumonia LAST 2009 Psoriasis SAH (subarachnoid hemorrhage) 2004 Skin lesion Symptomatic PVCs Vitamin D deficiency Surgical History Abnormal magnetic resonance angiography of brain X3 AFTER SUBARACHNOID HEMORRHAGE 2004 @ [facility] History of cardiac cath 08/2016--NO STENTS History of cervical discectomy C3 History of colonoscopy History of esophagogastroduodenoscopy (EGD) History of laminectomy L4-5 IN 1999 History of open reduction and internal fixation (ORIF) procedure LEFT TIB/FIB SCREWS/PINS History of tonsillectomy T&A CHILD History of tooth extraction Hx of biopsy thyroid-benign Hx of CABG x2 Hx of lumbar discectomy S/P CABG (coronary artery bypass graft) CABG X2 VESSEL @ [facility] 08/28/16 S/P Mohs surgery for basal cell carcinoma S/P thyroid biopsy (BENIGN) 2009 Family History Aunt Breast cancer Aunt No problems noted. 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"); Hx Alcohol Use: Yes Alcohol type: beer and wine Alcohol Intake Frequency: Monthly or Less Hx Substance Use: No Preferred Language: French Communication Ability: Effective Visual Impairment: No Limitations Hearing Ability: Normal Trauma Surgeon Required: No Beliefs That Will Affect Care: None marital status: Current Living Situation: Alone Current Living Situation Comment: LIVES WITH DAUGHTER current occupational status: retired How many Children do You have: 3 Feels Safe at Home: Yes Childhood Exposure to Second-Hand Smoke: Yes caffeine: Yes during the past year weight has: remained stable Dental Care, Regularly: Yes Physical Activity Frequency: Daily Seatbelt Use: sometimes Sunscreen Use: Yes Assistive Devices: Cane Review of Systems Review of Systems: The patient denies chest pain, palpitations, shortness of breath, dyspnea on exertion, cough, lower extremity swelling, sore throat, fevers, chills, sweats, nausea, vomiting, diarrhea , constipation, blood in urine or stool, dysuria, urinary frequency or urgency, loss of consciousness, rash, abnormal bruising or bleeding, imbalance, focal weakness, numbness or tingling in arms or legs, generalized arthralgias or myalgias, neck pain, or night sweats. The review of systems is otherwise negative other than for that already noted above, and at least 10 systems have been reviewed. Physical Exam Physical Exam: The patient is awake, alert and oriented 3, although periodically appears confused. Well developed and well nourished, normocephalic and atraumatic, lying in bed and in no acute distress. HEENT--PERRL, EOMI, mucous membranes and oropharynx dry, tympanic membranes normal Neck--supple. No JVD. No bruits. Thyroid normal, trachea midline, no adenopathy. Heart--normal S1 and S2. No murmurs, rubs or gallops. Lungs--clear bilaterally, no respiratory distress, no accessory muscle use. Abdomen--normal bowel sounds and soft. Nontender. Nondistended, no hernias or masses, no organomegaly. Extremities--no cyanosis or clubbing. No edema. There are good distal pulses b/l. Dermatologic--normal skin turgor, normal color, no abnormal lymph nodes, no rash. Neurologic--cranial nerves II through XII grossly intact. Rheumatologic--normal range of motion. Psychiatric--normal affect. Results & Data Results & Data ([facility]) Vital Signs (Past 12 Hours) Vital Signs Temp Pulse Pulse Resp BP BP Pulse Ox 10/24/22 03:49 75 10/24/22 03:15 76 17 98 10/24/22 03:00 73 15 155/93 H 97 10/24/22 02:45 75 18 148/89 H 98 10/24/22 02:32 74 16 151/80 H 98 10/24/22 02:30 75 13 93 10/24/22 02:15 70 17 140/88 97 10/24/22 01:45 72 18 153/90 H 10/24/22 01:30 154/99 H 10/24/22 01:30 75 13 154/99 H 98 10/24/22 01:15 73 18 10/24/22 01:00 63 13 161/88 H 10/24/22 00:45 77 14 136/88 98 10/24/22 00:31 77 19 96 10/24/22 00:30 76 19 172/95 H 98 10/24/22 00:15 79 22 175/103 H 94 10/24/22 00:10 74 16 10/23/22 23:47 76 18 175/107 H 97 10/23/22 23:45 73 17 96 10/23/22 23:42 77 16 96 10/23/22 23:45 75 10/23/22 23:37 77 18 99 10/23/22 23:21 77 18 191/115 H 99 10/23/22 23:26 36.5 C 76 18 207/93 H 97 O2 Del Method 10/24/22 03:49 10/24/22 03:15 Room Air 10/24/22 03:00 Room Air 10/24/22 02:45 Room Air 10/24/22 02:32 Room Air 10/24/22 02:30 Room Air 10/24/22 02:15 Room Air 10/24/22 01:45 10/24/22 01:30 10/24/22 01:30 10/24/22 01:15 10/24/22 01:00 10/24/22 00:45 Room Air 10/24/22 00:31 Room Air 10/24/22 00:30 Room Air 10/24/22 00:15 Room Air 10/24/22 00:10 10/23/22 23:47 Room Air 10/23/22 23:45 Room Air 10/23/22 23:42 Room Air 10/23/22 23:45 10/23/22 23:37 Room Air 10/23/22 23:21 Room Air 10/23/22 23:26 Room Air Laboratory Results Laboratory Results WBC 8.59 K/ul (4.8-10.8) 10/23/22 23:47 RBC 4.16 M/uL (4.70-6.10) L 10/23/22 23:47 Hgb 13.5 g/dl (14.0-18.0) L 10/23/22 23:47 Hct 40.0 % (42.0-52.0) L 10/23/22 23:47 MCV 96.2 fL (80.0-100.0) 10/23/22 23:47 MCH 32.5 pg (25.0-34.0) 10/23/22 23:47 MCHC 33.8 g/dL (32.0-36.0) 10/23/22 23:47 RDW Std Deviation 47.3 fL (36.4-46.3) H 10/23/22 23:47 RDW Coeff of Oseas 13.5 % (11.5-14.5) 10/23/22 23:47 Plt Count 287 K/uL (130-400) 10/23/22 23:47 MPV 9.3 fL (9.4-12.4) L 10/23/22 23:47 Immature Gran % (Auto) 0.5 % 10/23/22 23:47 Neut % (Auto) 79.9 % 10/23/22 23:47 Lymph % (Auto) 13.0 % 10/23/22 23:47 Yell % (Auto) 6.2 % 10/23/22 23:47 Eos % (Auto) 0.1 % 10/23/22 23:47 Baso % (Auto) 0.3 % 10/23/22 23:47 Neut # (Auto) 6.86 K/uL (1.40-6.50) H 10/23/22 23:47 Lymph # (Auto) 1.12 K/uL (1.2-3.4) L 10/23/22 23:47 Yell # (Auto) 0.53 K/uL (0.11-0.59) 10/23/22 23:47 Eos # (Auto) 0.01 K/uL (0-0.50) 10/23/22 23:47 Baso # (Auto) 0.03 K/uL (0-0.2) 10/23/22 23:47 Immature Gran # (Auto) 0.04 K/uL (0.01-0.20) 10/23/22 23:47 PT 10.7 Seconds (9.0-12.0) 10/23/22 23:47 INR 1.0 (0.9-1.1) 10/23/22 23:47 APTT 29.9 Seconds (21.0-31.0) 10/23/22 23:47 PTT Ratio 1.1 10/23/22 23:47 Sodium 136 mmol/L (136-145) 10/23/22 23:47 Potassium 4.3 mmol/L (3.5-5.1) 10/23/22 23:47 Chloride 102 mmol/L (98-107) 10/23/22 23:47 Carbon Dioxide 27 mmol/L (21-32) 10/23/22 23:47 Anion Gap 7 (3-11) 10/23/22 23:47 BUN 8 mg/dl (6-23) 10/23/22 23:47 Creatinine 0.61 mg/dl (0.6-1.4) 10/23/22 23:47 Est Cr Clr Drug Dosing 110.6 ml/min 10/23/22 23:47 Est GFR ( Amer) 118.1 ml/min 10/23/22 23:47 Est GFR (Non-Af Amer) 101.9 ml/min 10/23/22 23:47 BUN/Creatinine Ratio 13.1 (10-20) 10/23/22 23:47 Glucose 116 mg/dl (70-99(Fasting)) H 10/23/22 23:47 Calcium 9.5 mg/dl (8.5-10.1) 10/23/22 23:47 Total Bilirubin 0.8 mg/dl (0.2-1.0) 10/23/22 23:47 AST 21 U/L (13-39) 10/23/22 23:47 ALT 23 U/L (7-52) 10/23/22 23:47 Alkaline Phosphatase 55 U/L (34-104) 10/23/22 23:47 Troponin I High Sens 24.2 pg/ml (0-20) H 10/24/22 01:15 Total Protein 7.2 gm/dl (6.0-8.3) 10/23/22 23:47 Albumin 4.4 gm/dl (3.4-5.0) 10/23/22 23:47 Globulin 2.8 gm/dl (2.5-4.0) 10/23/22 23:47 Albumin/Globulin Ratio 1.6 (0.9-2) 10/23/22 23:47 Urine Color Yellow 10/24/22 02:33 Urine Appearance Clear (Clear) 10/24/22 02:33 Urine pH 5.5 (4.5-7.5) 10/24/22 02:33 Ur Specific Suring 1.007 (1.000-1.030) 10/24/22 02:33 Urine Protein Negative (Negative) 10/24/22 02:33 Urine Glucose (UA) Negative (Negative) 10/24/22 02:33 Urine Ketones Negative (Negative) 10/24/22 02:33 Urine Blood Negative (Negative) 10/24/22 02:33 Urine Nitrite Negative (Negative) 10/24/22 02:33 Urine Bilirubin Negative (Negative) 03/15/23 02:33 Urine Urobilinogen Negative (Negative) 10/24/22 02:33 Ur Leukocyte Esterase Negative (Negative) 10/24/22 02:[address] 10/23/22 23:37 Exam(s): CT HEAD Without Contrast EXAM: CT Head Without Intravenous Contrast CLINICAL HISTORY: Reason for exam: dizziness. TECHNIQUE: Axial computed tomography images of the head/brain without intravenous contrast. Automated exposure control was utilized for the study. A dose lowering technique was utilized adhering to the principles of ALARA. COMPARISON: No relevant prior studies available. FINDINGS: Brain: Unremarkable for age. No acute intracranial hemorrhage, edema or abnormal mass-effect. Ventricles: Unremarkable. No ventriculomegaly. Bones/joints: Unremarkable. No acute fracture. Soft tissues: Unremarkable. Sinuses: Unremarkable as visualized. No acute sinusitis. Mastoid air cells: Unremarkable as visualized. No mastoid effusion. IMPRESSION: No acute or focal intracranial abnormality. Electronically signed by: Raoul Aguilar MD 10/24/22 00:12 AM Code Status & VTE Plan Code Status Full code VTE Prophylaxis Plan VTE Prophylaxis will be ordered: Yes PG Care Time/CCT Total # of Minutes Spent Total Time Spent with Patient: Total time spent is greater than 50% in coordination of care (as documented) at patient's floor/unit and/or counseling patient: Coding Level of Care Code 32216 INT INP/OBS CARE 3/75MIN Diagnoses Dizziness R42 Atrial fibrillation I48.91 HLD (hyperlipidemia) E78.5 Coronary artery disease I25.10 Vitamin D deficiency E55.9 Hypertension I10 Carotid artery stenosis, asymptomatic I65.29 Degenerative joint disease of left hip M16.12 Superior mesenteric artery stenosis K55.1 BPH (benign prostatic hyperplasia) N40.0 Memory impairment R41.3 Confusion R41.0
[2022-10-24 07:06] LABS: Vitamin B12 273 pg/ml (180-914)
--- NOTE | 2022-10-24 09:16 | Magnetic Resonance Report ---
MRI OF THE BRAIN WITHOUT CONTRAST CLINICAL HISTORY: progressive dizzinesss, memory loss COMPARISON STUDY: Head CT October 23, [address] and CTA of the head August 24, 2016. TECHNIQUE: Utilizing a 1.5 Rin magnet and dedicated coil, multiplanar, multiecho imaging of the bra in was performed without IV contrast. FINDINGS: Note is made of multiple foci of restricted diffusion within the medial left temporal lobe and left occipital lobe as well as a few small foci within the left thalamus. These are hypointense o n the ADC map. There is no significant mass effect. No hemorrhage is present. These represent acute t o subacute infarcts. Several old infarcts within the inferior left cerebellar hemisphere present. Jeffrey tricular system is normal. Basal cisterns are patent. There are no extra axial collections. No intrac ranial masses are identified on this unenhanced exam. Calvarial signal is normal. There is no evidenc e for sinusitis. There is no mastoid fluid. IMPRESSION: 1. 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 Associated cytotoxic ed caleb. No significant mass effect. No hemorrhage. This finding will be called/faxed to ordering provide r at time of dictation. 2. Several old infarcts within the left cerebellar hemisphere. ACT 112: Negative or not required by law. Electronically signed by: Fei Churchill M.D. 10/24/2022 9:15 AM
[2022-10-24] MEDS ORDERED: PHARMACIST DISCHARGE MED REC CONSULT PRN (09:31)
[2022-10-24] MEDS ORDERED: ONDANSETRON 4 MG OD TAB PO PRN (10:20)
[2022-10-24] MEDS ORDERED: traMADol HCL 50 MG TABLET PO PRN (10:20)
[2022-10-24] MEDS ORDERED: ONDANSETRON INJ 2 MG/ML 2 ML VIAL IV PRN (10:20)
[2022-10-24] MEDS ORDERED: ASPIRIN 81 MG ECTAB PO SCH (10:20)
[2022-10-24] MEDS ORDERED: NON-FORMULARY MEDICATION (Turmeric 400 mg Capsule) PO SCH (10:20)
[2022-10-24] MEDS ORDERED: FEXOFENADINE HCL 180 MG TAB PO PRN (10:20)
[2022-10-24] MEDS ORDERED: FLUTICASONE PROPIONATE NA SPR 16 GM BTL NAE PRN (10:20)
[2022-10-24] MEDS ORDERED: ROSUVASTATIN CALCIUM 20 MG TAB PO SCH (10:20)
[2022-10-24] MEDS ORDERED: NON-FORMULARY MEDICATION (Coenzyme Q10 [Coq-10] 100 mg capsule) PO SCH (10:20)
[2022-10-24] MEDS ORDERED: ACETAMINOPHEN 325 MG TAB PO PRN (10:20)
[2022-10-24] MEDS ORDERED: BETAMETHASONE DIP AUG 0.05% OINT 15 GM TUBE TOP PRN (10:37)
[2022-10-24] MEDS ORDERED: ZINC SULFATE 220 MG CAPSULE PO SCH (10:45)
[2022-10-24] MEDS ORDERED: CEROVITE ADV FORMULA TAB PO SCH (10:45)
[2022-10-24] MEDS: CEROVITE ADV FORMULA TAB PO SCH (10:50)
[2022-10-24] MEDS: ASCORBIC ACID 500 MG TAB PO SCH (10:50)
[2022-10-24] MEDS: OMEGA-3 (PURIFIED FISH OIL) 1 GM CAP PO SCH (10:50)
[2022-10-24] MEDS: METOPROLOL SUCC 50MG EXT REL TAB PO SCH (10:50)
[2022-10-24] MEDS: lisinopril 20 MG TAB PO SCH (10:50)
[2022-10-24] MEDS: ZINC SULFATE 220 MG CAPSULE PO SCH (10:51)
[2022-10-24] MEDS: CHOLECALCIFEROL 1,000 UNITS 25 MCG TAB PO SCH (10:51)
[2022-10-24] MEDS ORDERED: OPTIRAY 320 500ml IV ONE (11:23)
[2022-10-24] MEDS: FOLIC ACID 1 MG TAB PO SCH (11:33)
[2022-10-24] MEDS: THIAMINE HCL 100 MG TAB PO SCH (11:33)
--- NOTE | 2022-10-24 11:36 | CT Scan Report ---
HEAD CTA HISTORY: Follow up left STEEL DIVISION SUPERVISOR territory stroke. TECHNIQUE: Multiaxial CT images of the head were performed following the intravenous administration o f contrast to evaluate the major cerebral vessels. Maximum intensity projection images were also obta ined. A dose lowering technique was utilized adhering to the principles of ALARA. COMPARISON: Brain MRI 10/24/2022. FINDINGS: Redemonstration of the hypodense area within the left medial occipital/temporal lobes consi stent with the patient's known left [employer] DIV[employer] SUPERVISOR territory infarct. No intracranial hemorrhage or midline shif t identified at this time. The paranasal sinuses and mastoid air cells are clear. The calvarium and s kull base are intact. The major dural venous sinuses are patent. Calcified plaque within the distal v ertebral arteries resulting in up to 50% stenosis within the distal left vertebral artery. The basila r artery and right [employer] SUPERVISOR are widely patent. There is abrupt vascular cut off at the left P1/P2 junction of the left STEEL DIVISION SUPERVISOR corresponding to the patient's known infarct. This is best seen on image 100 of 282. Mild multifocal stenosis within the bilateral carotid siphons due to the calcified plaque. The bilat eral ACAs and MCAs show no significant stenosis, occlusion, or aneurysm. IMPRESSION: 1. Abrupt occlusion of the mid left STEEL DIVISION SUPERVISOR which corresponds the patient's known left STE[employer] DIV[employer] SUPERVISOR territory infa rct. 2. Additional findings as described above. ACT 112: Negative or not required by law. Electronically signed by: Carlos Machado M.D. 10/24/2022 11:35 AM
--- NOTE | 2022-10-24 11:46 | CT Scan Report ---
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 Follow-up. stroke TECHNIQUE: Multiaxial CT images of the neck were performed following the intravenous administration o f contrast to evaluate the major cervical vessels. Maximum intensity projection images were also obta ined. All measurements were calculated based on NASCET criteria. A dose lowering technique was utili zed adhering to the principles of ALARA. COMPARISON STUDY: None. FINDINGS: High-grade stenosis of up to 90% within the proximal left subclavian artery due to the calc ified plaque. There is also high-grade stenosis at the origins of the bilateral vertebral arteries du e to the calcified plaque. Otherwise, the right vertebral artery is widely patent. Focal area of mode rate stenosis within the proximal left vertebral artery due to mass effect from the osteophytes withi n the cervical spine. Moderate to severe calcified plaque within the bilateral carotid bifurcations. This results in severe stenosis at the left carotid bifurcation and proximal left internal carotid ar bola of up to 90% narrowing. There is approximately 75% narrowing at the takeoff of the right interna l carotid artery due to the calcified plaque. The mid to distal bilateral internal carotid arteries a re widely patent. Focal occlusion at the takeoff of the left external carotid artery with immediate r econstitution of flow likely due to the arterial collaterals. No evidence for a carotid or vertebral dissection. IMPRESSION: 1. Severe/critical stenosis at the left carotid bifurcation and proximal left internal carotid artery due to the calcified plaque. 2. Approximately 75% narrowing at the takeoff of the right internal carotid artery due to the calcifi ed plaque. 3. High-grade stenosis within the proximal left subclavian artery and origins of the bilateral verteb ral arteries due to the calcified plaque. 4. Focal occlusion at the origin of the left external carotid artery with immediate reconstitution fr om arterial collaterals. ACT 112: Negative or not required by law. Electronically signed by: Carlos Machado M.D. 10/24/2022 11:43 AM
[2022-10-24 11:50] LABS: Lyme Ab IgG w/WB Rflx Negative (Negative); Lyme Ab IgM w/WB Rflx Negative (Negative)
--- NOTE | 2022-10-24 13:08 | Neurology Consultation ---
Date of Consultation October 24, 2022 Assessment & Plan (1) Ischemic stroke: Plan Neurology Consultation Assessment & Plan: Impression: pt with acute left SPECIAL EDUCATION DIRECTOR area ischemic stroke. clinically without deficits and stable. pt with left SPECIAL EDUCATION DIRECTOR occlusion. not candidate for intervention given he has no clinical deficits and outside the window for intervention. medical management for now. Recommendations: * * Antiplatelet therapy: * DAPT: start pts on ASA 81mg daily and Plavix 75mg daily. Continue DAPT for 90 days.After DAPT, can continue single antiplatelet therapy. * pt with known atrial fib, but given his hx of SAH and his current rate well controlled, would manage with antiplatelet for now. * Images:recent echo looks good and no need for repeat echo at this point. * Permissive Hypertension next 24 hrs. Keep SBP goal range less than 220. Avoid hypotension. Do not stop beta-ольга if on it. * If noted for large intracranial vessel stenosis, slow reduction of BP and allowing permissive HTN next 7-10 days. * Long-term SBP goal less than 130. * Plenty of hydration including IV fluid (use isotonic solution) next 1-2 days if possible. Avoid hypovolemia and hypotension. * Initiate DVT prevention therapy * Avoid hypoglycemia, serum glucose goal during hospitalization: 140-180 * Long-term HgA1c goal less than 7 * Start statin if not on it.Long-term LDL goal of less than 70. * Head of bed up 30 degree if possible. * Stroke education * Smoke cessation education if a smoker. * * Fall precaution and aspiration precaution. * Physical/occupational therapy eval for any needs at home as he lives along. * otherwise, not much else to add from neurology at this point. * please call again if new question. Chart reviewed I have spent more than 50% educating patient about potential diagnosis and neurological evaluation and coordinating care with patient's treatment team. Total time spent: 80 min (this includes chart review and documentation) Dr. Michele Wallace MD [facility] Neurology Chief Complaint: dizzy HISTORY OF PRESENT ILLNESS:pt currently feels well. no further confusion or dizzy feeling. mri brain noted for left SPECIAL EDUCATION DIRECTOR area subacute stroke, ischemic and no blood. pt doing well without deficits at this point. Admission/Initial HPI:The patient is a 67-year-old male with a past medical history including atrial fibrillation, hyperlipidemia, allergic rhinitis, CAD, symptomatic PVCs, hypertension, carotid artery stenosis, abdominal aortic ectasia, degenerative joint disease of left hip, rupture of left proximal biceps tendon, left rotator cuff disorder, superior mesenteric artery stenosis, BPH, vitamin D deficiency and history of cervical discectomy. He presents emergency department with concerns regarding dizziness, lightheadedness, brain fog and he reports a number of other somatic symptoms but has difficulty with consistency and explaining exactly what he is feeling. As he is talking he appears to have some problems with organization and memory function. He denies any sick exposures he denies any recent travels. He has a dog as a pet stays outside. He has had intermittent issues with his GI tract, and has been following with gastroenterology, but he relates variable symptoms related to that system today. He has followed with cardiology Dr. Moyer Past Medical History: See chart Meds: See chart Social & Family History: See chart Review of Systems: Per HPI. Physical Exam: General Statement: not in acute distress, well appearing Mental Status: Oriented fully. Normal comprehension, no neglect, Fluent speech, logical thought process, Visuo-spatial function was intact. No apraxia, no L/R confusion. Cranial Nerves: Visual rodriguez were full.PERRL.Extraocular movements were full with no nystagmus. Normal pursuit.Facial movements were symmetric.Hearing was grossly intact.Palate elevated symmetrically.Sternocleidomastoid and trapezius muscles were 5/5 and equal bilaterally. Motor: Strength was 5/5 and equal bilaterally. Normal tone.There were no abnormal movements or pronator drift. Sensory:intact to touch bilaterally Coordination: Finger to nose were intact bilaterally Reflexes: Toes down bilaterally History of Present Illness Attending Physician: Kevon Kramer MD Allergies Allergy/AdvReac Type Severity Reaction Status Date / Time No Known Allergies Allergy Verified 10/24/22 00:01 Home Medications Medication Instructions Recorded Confirmed Type cholecalciferol (vitamin D3) 50 2,000 unit PO QAM ##0 12/29/15 10/24/22 History mcg (2,000 unit) tablet epinephrine 0.3 mg/0.3 mL 1 dose INJ DIRECTED PRN BEE 12/29/15 10/24/22 History injection, auto-injector (EpiPen) STING ##0 fexofenadine 180 mg tablet 180 mg PO DAILY PRN Allergy 08/23/16 10/24/22 History (Hellen Allergy) Symptoms #0 tabs [id number] 200 mcg-vit K 100 1 tab PO DAILY #0 tabs 08/23/16 10/24/22 History mcg-lycop 500 [id number] capsule (Daily Multivitamin) ascorbic acid (vitamin C) 1,000 mg 1 tab PO QAM ##0 10/15/16 10/24/22 History tablet (Vitamin C) aspirin 81 mg tablet,delayed 81 mg PO QAM ##0 10/20/16 10/24/22 History release (Elvis Low Dose Aspirin) fluticasone propionate 50 1 spray intranasal BID PRN Allergy 04/04/18 10/24/22 History mcg/actuation nasal Symptoms spray,suspension (Flonase Allergy Relief) coenzyme Q10 100 mg capsule 200 mg PO DAILY 10/02/19 10/24/22 History (CoQ-10) oregano oil 2 drp PO DAILY 12/15/20 10/24/22 History betamethasone dipropionate 0.05 % 1 applic topical BID PRN Skin 06/19/21 10/24/22 History topical ointment Irritation pomegranate fruit extract 250 mg 250 mg PO DAILY 06/19/21 10/24/22 History capsule rosuvastatin 40 mg tablet 40 mg PO DAILY #90 tabs 08/21/22 10/24/22 Rx ondansetron 4 mg disintegrating 4 mg PO Q8H PRN nausea and 09/06/22 10/24/22 Rx tablet vomiting #30 tabs tramadol 50 mg tablet 50 mg PO TID PRN pain #20 tabs 09/06/22 10/24/22 Rx metoprolol succinate 200 mg 200 mg PO QAM #90 tabs 10/22/22 10/24/22 Rx tablet,extended release 24 hr lisinopril 40 mg tablet 20 mg PO DAILY 10/24/22 10/24/22 History omega 1-ada-kuc-fish oil 1,000 mg 1 cap PO DAILY 10/24/22 10/24/22 History (120 mg-180 mg) capsule (Fish Oil) turmeric 400 mg capsule 400 mg PO DAILY 10/24/22 10/24/22 History zinc gluconate 50 mg tablet 50 mg PO DAILY 10/24/22 10/24/22 History Patient History Medical History (Updated 10/24/22 @ 13:13 by Michele Wallace MD) Acute coronary syndrome Allergic rhinitis Atrial fibrillation WITH PVCS, ONLY HAD AFTER CABG Basal cell adenocarcinoma left eye- MOHS procedure Cancer BASAL CELL OVER L EYE--MOHS PROCEDURE AT [facility] Cardiac dysrhythmia Cervicalgia Coronary artery disease Deep vein thrombosis R KNEE 10/2016 DVT of popliteal vein Family history of diabetes mellitus MOTHER Family history of reaction to anesthesia 2 MATERNAL AUNTS "WOKE UP DURING SURGERY" Herniated cervical disc SURGERY ON C3 IN 1999 History of colon polyps HTN (hypertension) Hx of angiography brain x3 Hx of subarachnoid hemorrhage Hyperlipidemia Hypertension Hypertension Pneumonia LAST 2009 Psoriasis SAH (subarachnoid hemorrhage) 2004 Skin lesion Symptomatic PVCs Vitamin D deficiency Surgical History Abnormal magnetic resonance angiography of brain X3 AFTER SUBARACHNOID HEMORRHAGE 2004 @ [facility] History of cardiac cath 08/2016--NO STENTS History of cervical discectomy C3 History of colonoscopy History of esophagogastroduodenoscopy (EGD) History of laminectomy L4-5 IN 1999 History of open reduction and internal fixation (ORIF) procedure LEFT TIB/FIB SCREWS/PINS History of tonsillectomy T&A CHILD History of tooth extraction Hx of biopsy thyroid-benign Hx of CABG x2 Hx of lumbar discectomy S/P CABG (coronary artery bypass graft) CABG X2 VESSEL @ [facility] 08/28/16 S/P Mohs surgery for basal cell carcinoma S/P thyroid biopsy (BENIGN) 2009 Family History Aunt Breast cancer Aunt No problems noted. 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"); Hx Alcohol Use: Yes Alcohol type: beer Alcohol Intake Frequency: Monthly or Less Hx Substance Use: No Preferred Language: Montserratian Communication Ability: Effective Visual Impairment: No Limitations Hearing Ability: Normal Glass Beveller Required: No Beliefs That Will Affect Care: None marital status: Current Living Situation: Alone Current Living Situation Comment: LIVES WITH DAUGHTER current occupational status: retired How many Children do You have: 3 Feels Safe at Home: Yes Childhood Exposure to Second-Hand Smoke: Yes caffeine: Yes during the past year weight has: remained stable Dental Care, Regularly: Yes Physical Activity Frequency: Daily Seatbelt Use: sometimes Sunscreen Use: Yes Assistive Devices: Cane Results & Data Vital Signs (Past 12 Hours) Vital Signs Temp Pulse Pulse Resp BP BP Pulse Ox 10/24/22 12:16 36.8 C 72 20 176/95 H 97 10/24/22 10:20 10/24/22 10:25 77 10/24/22 09:42 10/24/22 09:20 36.8 C 58 L 19 167/92 H 97 10/24/22 06:30 70 16 127/76 10/24/22 06:15 75 16 136/87 10/24/22 06:00 72 16 132/75 10/24/22 05:45 70 17 129/74 10/24/22 05:30 74 14 131/78 10/24/22 05:16 79 15 96 10/24/22 03:46 78 19 162/104 H 92 10/24/22 03:45 78 24 96 10/24/22 03:30 71 13 140/90 97 10/24/22 03:49 75 10/24/22 03:15 76 17 98 10/24/22 03:00 73 15 155/93 H 97 10/24/22 02:45 75 18 148/89 H 98 10/24/22 02:32 74 16 151/80 H 98 10/24/22 02:30 75 13 93 10/24/22 02:15 70 17 140/88 97 10/24/22 01:45 72 18 153/90 H 10/24/22 01:30 154/99 H 10/24/22 01:30 75 13 154/99 H 98 10/24/22 01:15 73 18 Pulse Ox O2 Del Method O2 Del Method 10/24/22 12:16 Room Air 10/24/22 10:20 97 Room Air 10/24/22 10:25 10/24/22 09:42 Room Air 10/24/22 09:20 Room Air 10/24/22 06:30 10/24/22 06:15 10/24/22 06:00 10/24/22 05:45 10/24/22 05:30 10/24/22 05:16 Room Air 10/24/22 03:46 Room Air 10/24/22 03:45 Room Air 10/24/22 03:30 Room Air 10/24/22 03:49 10/24/22 03:15 Room Air 10/24/22 03:00 Room Air 10/24/22 02:45 Room Air 10/24/22 02:32 Room Air 10/24/22 02:30 Room Air 10/24/22 02:15 Room Air 10/24/22 01:45 10/24/22 01:30 10/24/22 01:30 10/24/22 01:15
--- NOTE | 2022-10-24 13:40 | Pharmacy Report ---
- Date of Service October 24, 2022 - Pharmacy CVA/TIA Medication Review Medications to Prevent Stroke handout has been added to the patients discharge packet. Antiplatelet(s) * ASA 81 mg currently ordered, ASA 81 mg + Plavix 75 mg daily recommended for 90 days by neurology, then continue single agent. Cholesterol * High intensity statin: atorvastatin 40 mg daily DVT Prophylaxis * Enoxaparin SQ Therapeutic Anticoagulation * Hx Afib/Aflutter noted, but anticoagulation is being deferred due to history of SAH Type 2 Diabetes * Patient does not have T2DM
--- NOTE | 2022-10-24 14:44 | Hospitalist Progress Note ---
Date of Service October 24, 2022 Assessment & Plan (1) Arterial ischemic stroke, COOL ROOFING INSTALLER (posterior cerebral artery), left, acute: Plan: Patient presented with vague symptoms of brain fogginess and dizziness MRI brain showed an acute/subacute left COOL ROOFING INSTALLER distribution ischemic stroke Patient is now having a stroke work-up done Neurology consulted. Recommended aspirin 81 and Plavix 75 mg daily for 90 days. May consider single antiplatelet therapy after 90 days Patient has a history of known atrial fibrillation but due to history of subarachnoid hemorrhage and since his current rate is well controlled, will manage with antiplatelet for now without anticoagulation. Per neurology, recent echocardiogram was good and no need for repeat echocardiogram at this point Continue statin that was started PT/OT Fall precautions DVT prophylaxis (2) Dizziness: Plan: Is likely secondary to acute stroke (3) Atrial fibrillation: Plan: Not on anticoagulation due to recent subarachnoid hemorrhage (4) HLD (hyperlipidemia): Plan: Discontinue rosuvastatin Start Lipitor 40 mg (5) Coronary artery disease: Plan: Negative dobutamine stress echo earlier this year Troponin elevation is most likely myocardial injury/demand ischemia related to stroke (6) Vitamin D deficiency: (7) Hypertension: Plan: Allow permissive hypertension Long-term SBP goal less than 130 (8) Carotid artery stenosis, asymptomatic: Plan: CTA neck showed severe/critical stenosis in the left carotid bifurcation and proximal left internal carotid artery. This is asymptomatic Patient also has 75% narrowing of the right ICA. This is also asymptomatic (9) Degenerative joint disease of left hip: (10) Superior mesenteric artery stenosis: (11) BPH (benign prostatic hyperplasia): (12) Memory impairment: Plan: Likely secondary to acute stroke (13) Confusion: Plan: Likely secondary to acute stroke Admission and Anticipated Discharge Date Admission Date: October 24, 2022 Subjective Patient does not have any major complaints at this time. Spoke to daughter on the phone who stated the patient has subtle issues with memory but "he hides it well". Review of Systems Review of Systems: All systems reviewed & are unremarkable except as noted in Subjective Physical Exam Physical Exam: General: Awake, conversant Heart: S1, S2/regular rate and rhythm, no murmur rubs or gallops Lungs: Clear to auscultation bilaterally. Normal effort Abdomen: Soft/nontender/nondistended. No hepatosplenomegaly Extremities: No clubbing/cyanosis. No edema Behavior: Appropriate, cooperative Results & Data Results & Data Vital Signs (Past 12 Hours) Vital Signs Temp Pulse Pulse Resp BP BP Pulse Ox 10/24/22 12:16 36.8 C 72 20 176/95 H 97 10/24/22 10:20 10/24/22 10:25 77 10/24/22 09:42 10/24/22 09:20 36.8 C 58 L 19 167/92 H 97 10/24/22 06:30 70 16 127/76 10/24/22 06:15 75 16 136/87 10/24/22 06:00 72 16 132/75 10/24/22 05:45 70 17 129/74 10/24/22 05:30 74 14 131/78 10/24/22 05:16 79 15 96 10/24/22 03:46 78 19 162/104 H 92 10/24/22 03:45 78 24 96 10/24/22 03:30 71 13 140/90 97 10/24/22 03:49 75 10/24/22 03:15 76 17 98 10/24/22 03:00 73 15 155/93 H 97 10/24/22 02:45 75 18 148/89 H 98 Pulse Ox O2 Del Method O2 Del Method 10/24/22 12:16 Room Air 10/24/22 10:20 97 Room Air 10/24/22 10:25 10/24/22 09:42 Room Air 10/24/22 09:20 Room Air 10/24/22 06:30 10/24/22 06:15 10/24/22 06:00 10/24/22 05:45 10/24/22 05:30 10/24/22 05:16 Room Air 10/24/22 03:46 Room Air 10/24/22 03:45 Room Air 10/24/22 03:30 Room Air 10/24/22 03:49 10/24/22 03:15 Room Air 10/24/22 03:00 Room Air 10/24/22 02:45 Room Air Laboratory Results Abnormal lab results 10/23/22 10/23/22 10/24/22 Range/Units 23:47 23:47 01:15 RBC 4.16 L (4.70-6.10) M/uL Hgb 13.5 L (14.0-18.0) g/dl Hct 40.0 L (42.0-52.0) % RDW Std Deviation 47.3 H (36.4-46.3) fL MPV 9.3 L (9.4-12.4) fL Neut # (Auto) 6.86 H (1.40-6.50) K/uL Lymph # (Auto) 1.12 L (1.2-3.4) K/uL Glucose 116 H (70-99(Fasting)) mg/dl Troponin I High Sens 22.5 H 24.2 H (0-20) pg/ml Diagnostic Findings Head CT 10/23/22 23:37 Exam(s): CT HEAD Without Contrast EXAM: CT Head Without Intravenous Contrast CLINICAL HISTORY: Reason for exam: dizziness. TECHNIQUE: Axial computed tomography images of the head/brain without intravenous contrast. Automated exposure control was utilized for the study. A dose lowering technique was utilized adhering to the principles of ALARA. COMPARISON: No relevant prior studies available. FINDINGS: Brain: Unremarkable for age. No acute intracranial hemorrhage, edema or abnormal mass-effect. Ventricles: Unremarkable. No ventriculomegaly. Bones/joints: Unremarkable. No acute fracture. Soft tissues: Unremarkable. Sinuses: Unremarkable as visualized. No acute sinusitis. Mastoid air cells: Unremarkable as visualized. No mastoid effusion. IMPRESSION: No acute or focal intracranial abnormality. Electronically signed by: Raoul Aguilar MD 10/24/22 00:12 AM Brain MRI 10/24/22 04:40 MRI OF THE BRAIN WITHOUT CONTRAST CLINICAL HISTORY: progressive dizzinesss, memory loss COMPARISON STUDY: Head CT October 23, [address] and CTA of the head August 24, 2016. TECHNIQUE: Utilizing a 1.5 Rin magnet and dedicated coil, multiplanar, multiecho imaging of the brain was performed without IV contrast. FINDINGS: Note is made of multiple foci of restricted diffusion within the medial left temporal lobe and left occipital lobe as well as a few small foci within the left thalamus. These are hypointense on the ADC map. There is no significant mass effect. No hemorrhage is present. These represent acute to subacute infarcts. Several old infarcts within the inferior left cerebellar hemisphere present. Ventricular system is normal. Basal cisterns are patent. There are no extra axial collections. No intracranial masses are identified on this unenhanced exam. Calvarial signal is normal. There is no evidence for sinusitis. There is no mastoid fluid. IMPRESSION: 1. Findings consistent with an acute to subacute left COOL ROOFING INSTALLER territory infarct involving the medial left temporal lobe, left occipital lobe and a small portion of the left thalamus. Associated cytotoxic edema. No significant mass effect. No hemorrhage. This finding will be called/faxed to ordering provider at time of dictation. 2. Several old infarcts within the left cerebellar hemisphere. ACT 112: Negative or not required by law. Electronically signed by: Fei Churchill M.D. 10/24/2022 9:15 AM Head CTA 10/24/22 09:36 HEAD CTA HISTORY: Follow up left COOL ROOFING INSTALLER territory stroke. TECHNIQUE: Multiaxial CT images of the head were performed following the intravenous administration of contrast to evaluate the major cerebral vessels. Maximum intensity projection images were also obtained. A dose lowering technique was utilized adhering to the principles of ALARA. COMPARISON: Brain MRI 10/24/2022. FINDINGS: Redemonstration of the hypodense area within the left medial occipital/temporal lobes consistent with the patient's known left COOL ROOFING INSTALLER territory infarct. No intracranial hemorrhage or midline shift identified at this time. The paranasal sinuses and mastoid air cells are clear. The calvarium and skull base are intact. The major dural venous sinuses are patent. Calcified plaque within the distal vertebral arteries resulting in up to 50% stenosis within the distal left vertebral artery. The basilar artery and right COOL ROOFING INSTALLER are widely patent. There is abrupt vascular cut off at the left P1/P2 junction of the left COOL ROOFING INSTALLER corresponding to the patient's known infarct. This is best seen on image 100 of 282. Mild multifocal stenosis within the bilateral carotid siphons due to the calcified plaque. The bilateral ACAs and MCAs show no significant stenosis, occlusion, or aneurysm. IMPRESSION: 1. Abrupt occlusion of the mid left COOL ROOFING INSTALLER which corresponds the patient's known left COOL ROOFING INSTALLER territory infarct. 2. Additional findings as described above. ACT 112: Negative or not required by law. Electronically signed by: Carlos Machado M.D. 10/24/2022 11:35 AM Neck CTA 10/24/22 09:36 NECK CTA HISTORY: Left COOL ROOFING INSTALLER territory stroke. Follow-up. stroke TECHNIQUE: Multiaxial CT images of the neck were performed following the intravenous administration of contrast to evaluate the major cervical vessels. Maximum intensity projection images were also obtained. All measurements were calculated based on NASCET criteria. A dose lowering technique was utilized adhering to the principles of ALARA. COMPARISON STUDY: None. FINDINGS: High-grade stenosis of up to 90% within the proximal left subclavian artery due to the calcified plaque. There is also high-grade stenosis at the origins of the bilateral vertebral arteries due to the calcified plaque. Otherwise, the right vertebral artery is widely patent. Focal area of moderate stenosis within the proximal left vertebral artery due to mass effect from the osteophytes within the cervical spine. Moderate to severe calcified plaque within the bilateral carotid bifurcations. This results in severe stenosis at the left carotid bifurcation and proximal left internal carotid artery of up to 90% narrowing. There is approximately 75% narrowing at the takeoff of the right internal carotid artery due to the calcified plaque. The mid to distal bilateral internal carotid arteries are widely patent. Focal occlusion at the takeoff of the left external carotid artery with immediate reconstitution of flow likely due to the arterial collaterals. No evidence for a carotid or vertebral dissection. IMPRESSION: 1. Severe/critical stenosis at the left carotid bifurcation and proximal left internal carotid artery due to the calcified plaque. 2. Approximately 75% narrowing at the takeoff of the right internal carotid artery due to the calcified plaque. 3. High-grade stenosis within the proximal left subclavian artery and origins of the bilateral vertebral arteries due to the calcified plaque. 4. Focal occlusion at the origin of the left external carotid artery with immediate reconstitution from arterial collaterals. ACT 112: Negative or not required by law. Electronically signed by: Carlos Machado M.D. 10/24/2022 11:43 AM PG Care Time/CCT Total # of Minutes Spent Total Time Spent: 35 Total Time Spent with Patient: I spent 35 minutes in the care of this patient. The time was spent in talking to the patient, daughter, nurse, care management team, reviewing the chart, formulating plan and placing the orders accordingly. Coding Level of Care Code 81302 SUB INP/OBS CARE 2/35MIN Diagnoses Arterial ischemic stroke, COOL ROOFING INSTALLER (posterior cerebral artery), left, acute I63.532 Dizziness R42 Atrial fibrillation I48.91 HLD (hyperlipidemia) E78.5 Coronary artery disease I25.10 Vitamin D deficiency E55.9 Hypertension I10 Carotid artery stenosis, asymptomatic I65.29 Degenerative joint disease of left hip M16.12 Superior mesenteric artery stenosis K55.1 BPH (benign prostatic hyperplasia) N40.0 Memory impairment R41.3 Confusion R41.0
--- NOTE | 2022-10-24 18:34 | XCELERA ---
[id number]
[2022-10-25 01:25] LABS: Basophils # (auto) 0.04 K/uL (0-0.2); Basophils % (auto) 0.5 %; Eosinophils % (auto) 1.3 %; Hematocrit (blood only) 37.9 % (42.0-52.0); Hemoglobin 12.7 g/dl (14.0-18.0); Immature Granulocytes # (auto) 0.02 K/uL (0.01-0.20); Immature Granulocytes % (auto) 0.3 %; Lymphocytes # (auto) 1.21 K/uL (1.2-3.4); Lymphocytes % (auto) 15.4 %; Mean Corpuscular Hemoglobin 32.4 pg (25.0-34.0); Mean Corpuscular Hgb Conc 33.5 g/dL (32.0-36.0); Mean Corpuscular Volume 96.7 fL (80.0-100.0); Mean Platelet Volume 9.1 fL (9.4-12.4); Monocytes # (auto) 0.65 K/uL (0.11-0.59); Monocytes % (auto) 8.2 %; Neutrophils # (auto) 5.86 K/uL (1.40-6.50); Neutrophils % (auto) 74.3 %; Platelet Count 263 K/uL (130-400); RDW Coefficient of Variation 13.9 % (11.5-14.5); RDW Standard Deviation 49.4 fL (36.4-46.3); Red Blood Count 3.92 M/uL (4.70-6.10); White Blood Count 7.88 K/ul (4.8-10.8)
[2022-10-25 01:40] LABS: Albumin Globulin Ratio 1.4 (0.9-2); Albumin Level 3.8 gm/dl (3.4-5.0); BUN Creatinine Ratio 17.6 (10-20); Bilirubin,Total 0.8 mg/dl (0.2-1.0); Calcium 8.8 mg/dl (8.5-10.1); Chol HDL Ratio 2.9 (0-5); Creatinine Clr Calc Pharmacy 91.1 ml/min; Est GFR (African American) 109.1 ml/min; Est GFR (Non-African American) 94.1 ml/min; Globulin 2.7 gm/dl (2.5-4.0); Magnesium 1.8 mg/dl (1.7-2.4); Potassium 4.3 mmol/L (3.5-5.1); Total Protein 6.5 gm/dl (6.0-8.3)
[2022-10-25 08:46] LABS: Estimated Average Glucose 114 mg/dl; Hemoglobin A1C 5.6 % (4.5-5.6)
[2022-10-25] MEDS: ASPIRIN 81 MG ECTAB PO SCH (08:49)
[2022-10-25] MEDS: OMEGA-3 (PURIFIED FISH OIL) 1 GM CAP PO SCH (08:49)
[2022-10-25] MEDS: ATORVASTATIN 40 MG TAB PO SCH (08:49)
[2022-10-25] MEDS: THIAMINE HCL 100 MG TAB PO SCH (08:49)
[2022-10-25] MEDS: lisinopril 20 MG TAB PO SCH (08:49)
[2022-10-25] MEDS: CHOLECALCIFEROL 1,000 UNITS 25 MCG TAB PO SCH (08:49)
[2022-10-25] MEDS: ASCORBIC ACID 500 MG TAB PO SCH (08:50)
[2022-10-25] MEDS: CEROVITE ADV FORMULA TAB PO SCH (08:50)
[2022-10-25] MEDS: FOLIC ACID 1 MG TAB PO SCH (08:50)
[2022-10-25] MEDS: ZINC SULFATE 220 MG CAPSULE PO SCH (08:50)
[2022-10-25] MEDS: CLOPIDOGREL BISULFATE 75 MG TAB PO SCH (08:50)
[2022-10-25] MEDS: ENOXAPARIN INJ 40 MG/0.4 ML SYR SQ SCH (08:50)
--- NOTE | 2022-10-25 12:21 | Hospitalist Progress Note ---
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 Recommended aspirin 81 and Plavix 75 mg daily for 90 days. May consider single antiplatelet therapy after 90 days Patient has a history of known atrial fibrillation but due to history of subarachnoid hemorrhage and since his current rate is well controlled, will manage with antiplatelet for now without anticoagulation. Echocardiogram unremarkable Continue statin that was started PT/OT Fall precautions DVT prophylaxis (2) Dizziness: Plan: Is likely secondary to acute stroke (3) Atrial fibrillation: Plan: Not on anticoagulation due to recent subarachnoid hemorrhage (4) HLD (hyperlipidemia): Plan: Discontinue rosuvastatin Start Lipitor 40 mg (5) Coronary artery disease: Plan: Negative dobutamine stress echo earlier this year Troponin elevation is most likely myocardial injury/demand ischemia related to stroke (6) Vitamin D deficiency: (7) Hypertension: Plan: Allow permissive hypertension Long-term SBP goal less than 130 (8) Carotid artery stenosis, asymptomatic: Plan: CTA neck showed severe/critical stenosis in the left carotid bifurcation and proximal left internal carotid artery. This is asymptomatic Patient also has 75% narrowing of the right ICA. This is also asymptomatic (9) Degenerative joint disease of left hip: (10) Superior mesenteric artery stenosis: (11) BPH (benign prostatic hyperplasia): (12) Memory impairment: Plan: Likely secondary to acute stroke (13) Confusion: Plan: Likely secondary to acute stroke Admission and Anticipated Discharge Date Admission Date: October 24, 2022 Subjective Patient feels well. Denies chest pain or shortness of breath. Review of Systems Review of Systems: All systems reviewed & are unremarkable except as noted in Subjective Physical Exam Physical Exam: General: Awake, conversant Heart: S1, S2/regular rate and rhythm, no murmur rubs or gallops Lungs: Clear to auscultation bilaterally. Normal effort Abdomen: Soft/nontender/nondistended. No hepatosplenomegaly Extremities: No clubbing/cyanosis. No edema Behavior: Appropriate, cooperative Results & Data Results & Data Vital Signs (Past 12 Hours) Vital Signs Temp Pulse Resp BP Pulse Ox O2 Del Method 10/25/22 11:42 36.7 C 73 18 128/85 94 Room Air 10/25/22 06:47 36.9 C 55 L 18 123/74 94 Room Air 10/25/22 02:44 37 C 76 18 118/70 95 Room Air PG Care Time/CCT Total # of Minutes Spent Total Time Spent with Patient: Total time spent is greater than 50% in coordination of care (as documented) at patient's floor/unit and/or counseling patient: Coding Level of Care Code 10904 SUB INP/OBS CARE 2/35MIN Diagnoses Arterial ischemic stroke, [employer]GER (posterior cerebral artery), left, acute I63.532 Dizziness R42 Atrial fibrillation I48.91 HLD (hyperlipidemia) E78.5 Coronary artery disease I25.10 Vitamin D deficiency E55.9 Hypertension I10 Carotid artery stenosis, asymptomatic I65.29 Degenerative joint disease of left hip M16.12 Superior mesenteric artery stenosis K55.1 BPH (benign prostatic hyperplasia) N40.0 Memory impairment R41.3 Confusion R41.0
[2022-10-25] MEDS: METOPROLOL SUCC 50MG EXT REL TAB PO SCH (12:58)
--- NOTE | 2022-10-26 05:59 | Electrocardiogram Report ---
Test Reason : Blood Pressure : / mmHG Vent. Rate : 071 BPM Atrial Rate : 071 BPM P-R Int : 140 ms QRS Dur : 092 ms QT Int : 408 ms P-R-T Axes : 048 017 034 degrees QTc Int : 443 ms Sinus rhythm with frequent Premature ventricular complexes Possible Left atrial enlargement Borderline ECG When compared with ECG of 20-OCT-2016 22:28, Vent. rate has decreased BY 38 BPM Premature ventricular complexes are no longer in a pattern of bigeminy Confirmed by Zhao Zapata ([id number]) on 10/26/2022 5:59:24 AM Referred By: REFERRED SELF Confirmed By:Zhao Zapata
[2022-10-26 06:31] LABS: Basophils # (auto) 0.03 K/uL (0-0.2); Basophils % (auto) 0.5 %; Eosinophils # (auto) 0.22 K/uL (0-0.50); Eosinophils % (auto) 3.8 %; Hematocrit (blood only) 41.4 % (42.0-52.0); Hemoglobin 13.7 g/dl (14.0-18.0); Immature Granulocytes # (auto) 0.01 K/uL (0.01-0.20); Immature Granulocytes % (auto) 0.2 %; Lymphocytes # (auto) 1.79 K/uL (1.2-3.4); Lymphocytes % (auto) 30.6 %; Mean Corpuscular Hemoglobin 31.9 pg (25.0-34.0); Mean Corpuscular Hgb Conc 33.1 g/dL (32.0-36.0); Mean Corpuscular Volume 96.3 fL (80.0-100.0); Mean Platelet Volume 9.4 fL (9.4-12.4); Monocytes # (auto) 0.59 K/uL (0.11-0.59); Monocytes % (auto) 10.1 %; Neutrophils # (auto) 3.21 K/uL (1.40-6.50); Neutrophils % (auto) 54.8 %; Platelet Count 246 K/uL (130-400); RDW Coefficient of Variation 13.8 % (11.5-14.5); RDW Standard Deviation 48.7 fL (36.4-46.3); White Blood Count 5.85 K/ul (4.8-10.8)
[2022-10-26 06:40] LABS: Albumin Globulin Ratio 1.4 (0.9-2); Albumin Level 3.8 gm/dl (3.4-5.0); BUN Creatinine Ratio 20.3 (10-20); Bilirubin,Total 0.9 mg/dl (0.2-1.0); Creatinine Clr Calc Pharmacy 105.4 ml/min; Est GFR (African American) 115.8 ml/min; Est GFR (Non-African American) 99.9 ml/min; Globulin 2.8 gm/dl (2.5-4.0); Magnesium 1.9 mg/dl (1.7-2.4); Total Protein 6.6 gm/dl (6.0-8.3)
[2022-10-26] MEDS: FOLIC ACID 1 MG TAB PO SCH (09:05)
[2022-10-26] MEDS: ASPIRIN 81 MG ECTAB PO SCH (09:05)
[2022-10-26] MEDS: CEROVITE ADV FORMULA TAB PO SCH (09:05)
[2022-10-26] MEDS: THIAMINE HCL 100 MG TAB PO SCH (09:05)
[2022-10-26] MEDS: ASCORBIC ACID 500 MG TAB PO SCH (09:06)
[2022-10-26] MEDS: OMEGA-3 (PURIFIED FISH OIL) 1 GM CAP PO SCH (09:06)
[2022-10-26] MEDS: ATORVASTATIN 40 MG TAB PO SCH (09:06)
[2022-10-26] MEDS: ZINC SULFATE 220 MG CAPSULE PO SCH (09:06)
[2022-10-26] MEDS: lisinopril 20 MG TAB PO SCH (09:06)
[2022-10-26] MEDS: CLOPIDOGREL BISULFATE 75 MG TAB PO SCH (09:07)
[2022-10-26] MEDS: ENOXAPARIN INJ 40 MG/0.4 ML SYR SQ SCH (09:07)
[2022-10-26] MEDS: CHOLECALCIFEROL 1,000 UNITS 25 MCG TAB PO SCH (09:07)
[2022-10-26] MEDS: METOPROLOL SUCC 50MG EXT REL TAB PO SCH (09:07)
[2022-10-26] MEDS ORDERED: STROKE PATIENT DISCHARGE STA (09:53)
--- NOTE | 2022-10-26 09:56 | Discharge Summary ---
Date of Service October 26, 2022 Admission HPI Per Admitting Provider The patient is a 67-year-old male with a past medical history including atrial fibrillation, hyperlipidemia, allergic rhinitis, CAD, symptomatic PVCs, hypertension, carotid artery stenosis, abdominal aortic ectasia, degenerative joint disease of left hip, rupture of left proximal biceps tendon, left rotator cuff disorder, superior mesenteric artery stenosis, BPH, vitamin D deficiency and history of cervical discectomy. He presents emergency department with concerns regarding dizziness, lightheadedness, brain fog and he reports a number of other somatic symptoms but has difficulty with consistency and explaining exactly what he is feeling. As he is talking he appears to have some problems with organization and memory function. He denies any sick exposures he denies any recent travels. He has a dog as a pet stays outside. He has had intermittent issues with his GI tract, and has been following with gastroenterology, but he relates variable symptoms related to that system today. He has followed with cardiology Dr. Moyer Admission Exam Per Admitting Provider The patient is awake, alert and oriented 3, although periodically appears confused. Well developed and well nourished, normocephalic and atraumatic, lying in bed and in no acute distress. HEENT--PERRL, EOMI, mucous membranes and oropharynx dry, tympanic membranes no rmal Neck--supple. No JVD. No bruits. Thyroid normal, trachea midline, no adenopathy. Heart--normal S1 and S2. No murmurs, rubs or gallops. Lungs--clear bilaterally, no respiratory distress, no accessory muscle use. Abdomen--normal bowel sounds and soft. Nontender. Nondistended, no hernias or masses, no organomegaly. Extremities--no cyanosis or clubbing. No edema. There are good distal pulses b /l. Dermatologic--normal skin turgor, normal color, no abnormal lymph nodes, no rash. Neurologic--cranial nerves II through XII grossly intact. Rheumatologic--normal range of motion. Psychiatric--normal affect. Principal Diagnosis Acute left BLEACHER KRAFT PULP distribution ischemic CVA Discharge Exam General: Awake, conversant Heart: S1, S2/regular rate and rhythm, no murmur rubs or gallops Lungs: Clear to auscultation bilaterally. Normal effort Abdomen: Soft/nontender/nondistended. No hepatosplenomegaly Extremities: No clubbing/cyanosis. No edema Behavior: Appropriate, cooperative Discharge Data Allergies Allergy/AdvReac Type Severity Reaction Status Date / Time No Known Allergies Allergy Verified 10/24/22 00:01 Consultations 10/24/22 04:05 ED Decision to Admit Stat 10/24/22 09:32 Consult Neurology Routine Ordered Studies 10/23/22 23:37 CT head/brain wo con Stat 10/24/22 04:40 MRI Brain [MR brain wo con] Stat 10/24/22 09:36 CT angio head w con Routine CT angio neck with con Routine Hospital Course (1) Arterial ischemic stroke, BLEACHER KRAFT PULP (posterior cerebral artery), left, acute: Patient presented with vague symptoms of brain fogginess and dizziness MRI brain showed an acute/subacute left BLE[employer] PUL[employer] distribution ischemic stroke Neurology consulted. Recommended aspirin 81 and Plavix 75 mg daily for 90 days. May consider single antiplatelet therapy after 90 days Patient has a history of known atrial fibrillation but due to history of subarachnoid hemorrhage and since his current rate is well controlled, will manage with antiplatelet for now without anticoagulation. Echocardiogram unremarkable Continue statin Outpatient PT/OT Fall precautions DVT prophylaxis Follow-up with neurology outpatient in 3 months (2) Dizziness: Is likely secondary to acute stroke (3) Atrial fibrillation: Not on anticoagulation due to recent subarachnoid hemorrhage (4) HLD (hyperlipidemia): Discontinue rosuvastatin Start Lipitor 40 mg (5) Coronary artery disease: Negative dobutamine stress echo earlier this year Troponin elevation is most likely myocardial injury/demand ischemia related to stroke (6) Vitamin D deficiency: (7) Hypertension: Allow permissive hypertension Long-term SBP goal less than 130 (8) Carotid artery stenosis, asymptomatic: CTA neck showed severe/critical stenosis in the left carotid bifurcation and proximal left internal carotid artery. This is asymptomatic Patient also has 75% narrowing of the right ICA. This is also asymptomatic Recommend outpatient vascular surgery follow-up (9) Degenerative joint disease of left hip: (10) Superior mesenteric artery stenosis: (11) BPH (benign prostatic hyperplasia): (12) Memory impairment: Likely secondary to acute stroke (13) Confusion: Likely secondary to acute stroke Total Time Total Time Spent Total Time Spent (In Minutes): 35 Discharge Plan Discharge Items Patient Disposition: Home - Self-Care Reason For Visit: INTRACTABLE DIZZINESS, PROGRESSIVE MEMORY LOSS Discharge Diagnosis: Stroke Activity: Resume your previous activity Non-emergency contact: Primary Care Provider Call non-emergency contact if: your symptoms worsen Follow-up/Referrals: Dennis Arroyo DO [Primary Care Provider] - 10/31/22 11:20 am (Patient will be re-establishing care to the [place] area and will schedule his own appointments) Diet: Heart Healthy Addtl Attending Provider Instructions: Follow-up with PCP in 1 week Follow-up with vascular surgery in 2 weeks Follow-up with neurology in 3 months Pending Studies at Discharge: No Stand-Alone Forms: [facility], Smoking Cessation, Medications to Prevent Stroke Medications and DC Order Prescriptions: New clopidogrel 75 mg Tablet 75 mg PO QAM 30 Days Qty: 30 0RF Continued epinephrine [EpiPen] 0.3 mg/0.3 mL Auto-Injector 1 dose INJ DIRECTED PRN (Reason: BEE STING) Qty: 0 cholecalciferol (vitamin D3) 2,000 unit Tablet 2,000 unit PO QAM Qty: 0 Daily Multivitamin 200-100-500 mcg Capsule 1 tab PO DAILY Qty: 0 fexofenadine [Hellen Allergy] 180 mg Tablet 180 mg PO DAILY PRN (Reason: Allergy Symptoms) Qty: 0 ascorbic acid (vitamin C) [Vitamin C] 1,000 mg Tablet 1 tab PO QAM Qty: 0 aspirin [Elvis Low Dose Aspirin] 81 mg Tablet,Delayed Release (Dr/Ec) 81 mg PO QAM Qty: 0 metoprolol succinate 200 mg tablet extended release 24 hr 200 mg PO QAM Qty: 90 3RF rosuvastatin 40 mg tablet 40 mg PO DAILY Qty: 90 3RF betamethasone dipropionate 0.05 % ointment 1 applic topical BID PRN (Reason: Skin Irritation) coenzyme Q10 [CoQ-10] 100 mg capsule 200 mg PO DAILY pomegranate fruit extract 250 mg capsule 250 mg PO DAILY oregano oil 2 drp PO DAILY ondansetron 4 mg tablet,disintegrating 4 mg PO Q8H PRN (Reason: nausea and vomiting) Qty: 30 1RF tramadol 50 mg tablet 50 mg PO TID PRN (Reason: pain) Qty: 20 0RF fluticasone propionate [Flonase Allergy Relief] 50 mcg/actuation [place],Suspension 1 spray INTRANASAL BID PRN (Reason: Allergy Symptoms) zinc gluconate 50 mg Tablet 50 mg PO DAILY omega [id number] oil [Fish Oil] 1,000 mg (120 mg-180 mg) Capsule 1 cap PO DAILY turmeric 400 mg Capsule 400 mg PO DAILY lisinopril 40 mg tablet 20 mg PO DAILY Discharge Orders: Discharge Order (Routine); Ordered 10/26/22 Ordered By: Susanna Bill Admission Data Admit Date/Time: 10/25/22 17:34 Attending Provider: Susanna Blil Admit Provider: Kevon Kramer Primary Care Provider: Dennis Arroyo Other Providers: Kevon Kramer ; Michele Wallace Other Interventions: Discharge Summary Assessment (RN) Last Done: 10/26/22 13:16 Coding Level of Care Code 93019 INP/OBS DISCH >30 MIN Diagnoses Arterial ischemic stroke, BLEACHER KRAFT PULP (posterior cerebral artery), left, acute I63.532 Dizziness R42 Atrial fibrillation I48.91 HLD (hyperlipidemia) E78.5 Coronary artery disease I25.10 Vitamin D deficiency E55.9 Hypertension I10 Carotid artery stenosis, asymptomatic I65.29 Degenerative joint disease of left hip M16.12 Superior mesenteric artery stenosis K55.1 BPH (benign prostatic hyperplasia) N40.0 Memory impairment R41.3 Confusion R41.0
--- NOTE | 2022-10-26 23:38 | Electrocardiogram Report ---
Test Reason : Blood Pressure : / mmHG Vent. Rate : 070 BPM Atrial Rate : 070 BPM P-R Int : 142 ms QRS Dur : 088 ms QT Int : 430 ms P-R-T Axes : 047 017 061 degrees QTc Int : 464 ms Sinus rhythm with occasional Premature ventricular complexes Possible Left atrial enlargement Nonspecific ST abnormality Abnormal ECG When compared with ECG of 23-OCT-2022 23:48, No significant change was found Confirmed by Zhao Zapata ([id number]) on 10/26/2022 11:37:46 PM Referred By: REFERRED SELF Confirmed By:Zhao Zapata
--- NOTE | 2022-10-27 00:19 | Electrocardiogram Report ---
Test Reason : Blood Pressure : / mmHG Vent. Rate : 053 BPM Atrial Rate : 053 BPM P-R Int : 128 ms QRS Dur : 090 ms QT Int : 470 ms P-R-T Axes : 000 017 056 degrees QTc Int : 441 ms Sinus bradycardia Possible Inferior infarct , age undetermined Nonspecific ST abnormality Abnormal ECG When compared with ECG of 24-OCT-2022 12:43, Premature ventricular complexes are no longer Present Borderline criteria for Inferior infarct are now Present Confirmed by Zhao Zapata ([id number]) on 10/27/2022 12:18:45 AM Referred By: REFERRED SELF Confirmed By:Zhao Zapata
--- NOTE | 2022-10-27 02:08 | Electrocardiogram Report ---
Test Reason : Blood Pressure : / mmHG Vent. Rate : 049 BPM Atrial Rate : 049 BPM P-R Int : 142 ms QRS Dur : 090 ms QT Int : 482 ms P-R-T Axes : 063 029 038 degrees QTc Int : 435 ms Sinus bradycardia Minimal voltage criteria for LVH, may be normal variant Borderline ECG When compared with ECG of 25-OCT-2022 05:30, No significant change was found Confirmed by Zhao Zapata ([id number]) on 10/27/2022 2:08:18 AM Referred By: REFERRED SELF Confirmed By:Zhao Zapata
== END 2022-10-26 15:22 | disposition home or self-care (01) | DRG 65 ==
LOC: 4W 23:21 → ED 23:21 → SUATTDRO 10-24 05:07 → 4W 10-24 07:14